=== PATIENT | male | born 1970 | race Caucasian/White ===

== ENCOUNTER → 2020-06-28 15:18 | Outpatient (BNVA) | payer MEDICAID, SELFPAY | PROVIDERS: Visit Provider Urology | DX: Z76.89 Persons encountering health services in other specified circumstances (principal) | CPT/HCPCS: 99212 ==

== ENCOUNTER → 2021-03-15 15:04 | Outpatient (BNVA) | payer MEDICAID, SELFPAY | PROVIDERS: Visit Provider Urology | DX: N30.11 Interstitial cystitis (chronic) with hematuria (principal); R31.29 Other microscopic hematuria; E29.1 Testicular hypofunction; R10.2 Pelvic and perineal pain; G89.29 Other chronic pain | CPT/HCPCS: 52000; 99212 ==

== ENCOUNTER → 2021-09-13 15:34 | Outpatient (BNVA) | payer MEDICAID, SELFPAY | PROVIDERS: PCP Family Medicine; Visit Provider Urology ==

== ENCOUNTER → 2022-09-12 14:17 | Outpatient (BNVA) | payer MEDICAID, SELFPAY | PROVIDERS: PCP Family Medicine; Visit Provider Urology | DX: N30.11 Interstitial cystitis (chronic) with hematuria (principal); E29.1 Testicular hypofunction; R31.29 Other microscopic hematuria; R10.2 Pelvic and perineal pain; G89.29 Other chronic pain | CPT/HCPCS: 99212 ==

== ENCOUNTER 2023-03-11 15:30 | Outpatient (AMB) | payer MEDICARE, MEDICAID, SELFPAY ==
--- NOTE | 2023-03-11 15:37 | A.OFFVIS_ITS ---
Intake Intake Visit Reasons: 5M CBC/PSA/Testo(set) Intake Note: Patient is present for Follow Up labs Urology Med: Antibiotic Allergy:None Blood Thinner: None Pharmacy: [facility] Allergies No Known Allergies Allergy (Verified 03/11/23 15:43) Medication List - Last Reconciled 03/11/23 by Junior Finnegan MD cimetidine 200 mg PO BID 90 days doxycycline monohydrate 50 mg PO DAILY 90 days fentanyl 50 mcg/hr 1 patch transdermal Q72H 28 days gabapentin mg PO oxycodone-acetaminophen 10-325 mg 2 tabs PO Q6H PRN 30 days tamsulosin 0.4 mg PO DAILY 90 days testosterone (AndroGel) 2 pumps topical DAILY 28 days tranexamic acid 650 mg PO BID 5 days HPI HPI Comments History of Present Illness Details Tony is a pleasant male. He is a patient of Dr. Mclaughlin. He is seen for the following urologic conditions - Interstitial cystitis - Chronic pelvic pain syndrome - Painful ejaculation - Peyronies Disease - Hypogonadism In person visit Stable with current pain protocol Does need to see pain management at [facility] to try and taper opioid use We understand this may or may not be possible Referral Brad Santiago MD Physical Medicine and Rehabilitation Pain Medicine [address] [place] [address],[id number] ? ?Fax:? Current lab work shows in range testosterone Progressive right inguinal hernia Has been assess for repair 6 month follow-up repeat labs Hypogonadism: He presents today for further evaluation and followup of his hypogonadism. The onset of symptoms has been gradual. Associate conditions include chronic pain with opioid use Yes obstructive sleep apnea No CAD No obesity No stress - financial, family, employment No heavy alcohol or illicit drug use No Laboratory results 05/14 250, 03/18 426 Current therapy includes gel/cream exogenous testosterone - apply sparingly to testicle. Prior therapy includes testosterone, topical, minimal effect. Peyronie's Disease: The patient presents for followup up evaluation for penile disorder. Primary complaint is penile curvature, to the right - associated hour glass deformity. At this time he experiences partial erections sufficient for penetrative intercourse. Prior management includes responded previously to antioxidant and Vit E therapy with vaccum. Interstitial cystitis: Prior therapy - elmiron, ranitidine, tums all with some effect. The interstitial cystitis was diagnosed longstanding since 2009. Current symptoms include pelvic pain, urinary urgency. Severity of the pain is 7 out of 10, that is moderate. Character of the pain is chronic. Prostatitis/CPPS: They present for further evaluation of, chronic pelvic pain syndrome. He is currently being treated with pain medications. Testing included 07/14 cystoscopy - open prostate and normal bladder 07/14 MRI pelvis - no enlargement of seminal vesicles - responds well to long-term fentanyl patch and oxycodone. 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 Hypogonadism male Interstitial cystitis Microscopic hematuria Microscopic hematuria Peyronie's disease UTI (urinary tract infection) Surgical History History of bladder surgery History of prostatectomy Social History Patient Tobacco Use Status: Current everyday Tobacco user Review of Systems Const Denies chills and Denies fever(s) Card Reports no additional complaints and Denies syncope Resp Denies cough GI Denies abdominal pain and Denies heartburn Reports as per HPI and Denies change in libido Neuro Denies syncope Psych Denies change in libido Endo Denies change in libido Physical Exam Const General: cooperative, healthy appearing, comfortable and no acute distress Orientation/consciousness: patient oriented x3 HEENT Face and sinus: Yes normal facial exam Mouth: moist mucous membranes Neck Neck: Yes normal visual inspection, Yes full ROM and Yes trachea midline Chest Chest palpation & inspection: normal inspection of the chest Resp Effort & Inspection: normal respiratory effort, able to speak in complete senten ac and no respiratory distress GI Inspection: Yes normal to inspection Back/Spine/Pelvis Cervical Spine: normal cervical lordosis Thoracic/Lumbar Spine: thoracic and lumbar spine normal to inspection Skin General skin exam: no rashes or lesions noted Neuro General: patient oriented x3, gait normal, tone normal and moves all extremities Extrem General: Yes normal to inspection and Yes capillary refill normal Assessment & Plan Assessment & Plan (1) Interstitial cystitis (chronic) with hematuria: Code(s): N30.11 - Interstitial cystitis (chronic) with hematuria (2) Chronic pelvic pain in male: Code(s): R10.2 - Pelvic and perineal pain; G89.29 - Other chronic pain (3) Hypogonadism in male: Code(s): E29.1 - Testicular hypofunction Plan Six month follow-up labs Pain management referral [facility] Orders: Orders Prostate Specific Antigen 6 Months E29.1 - Testicular hypofunction Testosterone, Total 6 Months E29.1 - Testicular hypofunction Complete Blood Count no Diff 6 Months E29.1 - Testicular hypofunction Referrals Pain Management Referral G89.29 - Other chronic pain, R10.2 - Pelvic and perineal pain Patient Instructions: Imaging studies, laboratory and physical exam results were discussed and reviewed in detail. No major barriers to patient understanding were identified. An opportunity to ask questions regarding the treatment plan was provided. All questions were answered. The patient expressed understanding and agreement with the above treatment plan. The patient is aware they should contact our office by phone for worsening of their current condition or the appearance of new urologic symptoms. Compliance is encouraged with any medications and followup testing that is ordered. It is a privilege to participate in the urologic care of your patient. If you have any questions or concerns regarding treatment for the above conditions, or other urologic issues, please do not hesitate to contact me. The office telephone contact is [phone]. This note is constructed using voice recognition software. While every effort has been made to ensure accuracy color checker errors may have been included. Yours sincerely, Dr Junior Finnegan MD, [facility] - Urology Providers of Expert, Compassionate Care for the Genitourinary System Coding Level of Care Code Est Pt Level 4 (08932) Diagnoses Interstitial cystitis (chronic) with hematuria N30.11 Chronic pelvic pain in male R10.2; G89.29 Hypogonadism in male E29.1
== END 2023-03-11 16:09 | disposition home or self-care (01) ==
PROVIDERS: PCP Family Medicine; Visit Provider Urology
DX: N30.11 Interstitial cystitis (chronic) with hematuria (principal); R10.2 Pelvic and perineal pain; G89.29 Other chronic pain; E29.1 Testicular hypofunction
CPT/HCPCS: 99214

== ENCOUNTER → 2023-03-11 15:30 | Outpatient (BNVA) | payer MEDICARE, MEDICAID, SELFPAY | PROVIDERS: Visit Provider Urology | DX: N30.11 Interstitial cystitis (chronic) with hematuria (principal); E29.1 Testicular hypofunction; R10.2 Pelvic and perineal pain; G89.29 Other chronic pain | CPT/HCPCS: 99212 ==

== ENCOUNTER 2023-11-06 13:34 | Outpatient (AMB) | payer MEDICARE, MEDICAID, SELFPAY ==
--- NOTE | 2023-11-06 13:40 | A.OFFVIS_ITS ---
Intake Intake Visit Reasons: PSA/Testo/CBC([facility]?)Confirmed Allergies No Known Allergies Allergy (Verified 03/11/23 15:43) HPI HPI Comments History of Present Illness Details Tony is a pleasant male. He is a patient of Dr. Mclaughlin. He is seen for the following urologic conditions - Interstitial cystitis - Chronic pelvic pain syndrome - Painful ejaculation - Peyronies Disease - Hypogonadism In person visit Current lab work shows in range testosterone Progressive right inguinal hernia Upcoming repair 6 month follow-up repeat labs Hypogonadism: He presents today for further evaluation and followup of his hypogonadism. The onset of symptoms has been gradual. Associate conditions include chronic pain with opioid use Yes obstructive sleep apnea No CAD No obesity No stress - financial, family, employment No heavy alcohol or illicit drug use No Laboratory results 05/14 250, 03/18 426, 11/17 360 Current therapy includes gel/cream exogenous testosterone - apply sparingly to testicle. Prior therapy includes testosterone, topical, minimal effect. Peyronie's Disease: The patient presents for followup up evaluation for penile disorder. Primary complaint is penile curvature, to the right - associated hour glass deformity. At this time he experiences partial erections sufficient for penetrative intercourse. Prior management includes responded previously to antioxidant and Vit E therapy with vaccum. Interstitial cystitis: Prior therapy - elmiron, ranitidine, tums all with some effect. The interstitial cystitis was diagnosed longstanding since 2009. Current symptoms include pelvic pain, urinary urgency. Severity of the pain is 7 out of 10, that is moderate. Character of the pain is chronic. Prostatitis/CPPS: They present for further evaluation of, chronic pelvic pain syndrome. He is currently being treated with pain medications. Testing included 07/14 cystoscopy - open prostate and normal bladder 07/14 MRI pelvis - no enlargement of seminal vesicles - responds well to long-term fentanyl patch and oxycodone. 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 Hypogonadism male Interstitial cystitis Microscopic hematuria Microscopic hematuria Peyronie's disease UTI (urinary tract infection) Surgical History History of bladder surgery History of prostatectomy Social History Patient Tobacco Use Status: Current everyday Tobacco user Review of Systems Const Denies chills and Denies fever(s) Card Reports no additional complaints and Denies syncope Resp Denies cough GI Denies abdominal pain and Denies heartburn Reports as per HPI and Denies change in libido Neuro Denies syncope Psych Denies change in libido Endo Denies change in libido Physical Exam Const General: cooperative, healthy appearing, comfortable and no acute distress Orientation/consciousness: patient oriented x3 HEENT Face and sinus: Yes normal facial exam Mouth: moist mucous membranes Neck Neck: Yes normal visual inspection, Yes full ROM and Yes trachea midline Chest Chest palpation & inspection: normal inspection of the chest Resp Effort & Inspection: normal respiratory effort, able to speak in complete sentences and no respiratory distress GI Inspection: Yes normal to inspection Back/Spine/Pelvis Cervical Spine: normal cervical lordosis Thoracic/Lumbar Spine: thoracic and lumbar spine normal to inspection Skin General skin exam: no rashes or lesions noted Neuro General: patient oriented x3, gait normal, tone normal and moves all extremities Extrem General: Yes normal to inspection and Yes capillary refill normal Assessment & Plan Assessment & Plan (1) Hypogonadism in male: Code(s): E29.1 - Testicular hypofunction (2) Interstitial cystitis (chronic) with hematuria: Code(s): N30.11 - Interstitial cystitis (chronic) with hematuria (3) Chronic pelvic pain in male: Code(s): R10.2 - Pelvic and perineal pain; G89.29 - Other chronic pain Plan Six-month follow-up labs Orders: Orders Testosterone, Total 6 Months E29.1 - Testicular hypofunction Complete Blood Count no Diff 6 Months E29.1 - Testicular hypofunction Prostate Specific Antigen 6 Months E29.1 - Testicular hypofunction Patient Instructions: Imaging studies, laboratory and physical exam results were discussed and reviewed in detail. No major barriers to patient understanding were identified. An opportunity to ask questions regarding the treatment plan was provided. All questions were answered. The patient expressed understanding and agreement with the above treatment plan. The patient is aware they should contact our office by phone for worsening of their current condition or the appearance of new urologic symptoms. Compliance is encouraged with any medications and followup testing that is ordered. It is a privilege to participate in the urologic care of your patient. If you have any questions or concerns regarding treatment for the above conditions, or other urologic issues, please do not hesitate to contact me. The office telep rubio contact is [phone]. This note is constructed using voice recognition software. While every effort has been made to ensure accuracy habilitation worker errors may have been included. Yours sincerely, Dr Junior Finnegan MD, [facility] - Urology Providers of Expert, Compassionate Care for the Genitourinary System Coding Level of Care Code Est Pt Level 4 (77523) Diagnoses Hypogonadism in male E29.1 Interstitial cystitis (chronic) with hematuria N30.11 Chronic pelvic pain in male R10.2; G89.29
== END 2023-11-06 14:03 | disposition home or self-care (01) ==
LOC: HO.HUSH 13:37
PROVIDERS: PCP Family Medicine; Visit Provider Urology
DX: E29.1 Testicular hypofunction (principal); N30.11 Interstitial cystitis (chronic) with hematuria; R10.2 Pelvic and perineal pain; G89.29 Other chronic pain
CPT/HCPCS: 99214

== ENCOUNTER → 2023-11-06 13:34 | Outpatient (BNVA) | payer MEDICARE, MEDICAID, SELFPAY | PROVIDERS: PCP Family Medicine; Visit Provider Urology | DX: E29.1 Testicular hypofunction (principal); N30.11 Interstitial cystitis (chronic) with hematuria; R10.2 Pelvic and perineal pain; G89.29 Other chronic pain | CPT/HCPCS: 99212 ==

== ENCOUNTER 2024-05-06 13:10 | Outpatient (AMB) | payer MEDICARE, MEDICAID, SELFPAY ==
--- NOTE | 2024-05-06 13:16 | MHC.OFFVIS ---
Intake Visit Reasons: 6M Labs([facility] lab) Intake Note: Patient is Present for Telephone Follow Up Urology Med: Tamsulosin, Testosterone. Tranexamic Acid Antibiotic Allergy:None Blood Thinner: None Prosthetic Technician Required: No Allergies No Known Allergies Allergy (Verified 05/06/24 13:17) HPI Comments Details: Tony is a pleasant male. He is a patient of Dr. Mclaughlin. He is seen for the following urologic conditions - Interstitial cystitis - Chronic pelvic pain syndrome - Painful ejaculation - Peyronies Disease - Hypogonadism Telemedicine Evaluation 15 min Consultation Bru[facility]ie Yary Video Current lab work shows in range testosterone Has flare-up of interstitial cystitis Prescription provided for tranexamic acid and cimitidine 6 month follow-up repeat labs Hypogonadism: He presents today for further evaluation and followup of his hypogonadism. The onset of symptoms has been gradual. Associate conditions include chronic pain with opioid use Yes obstructive sleep apnea No CAD No obesity No stress - financial, family, employment No heavy alcohol or illicit drug use No Laboratory results 05/14 250, 03/18 426, 11/17 360 Current therapy includes gel/cream exogenous testosterone - apply sparingly to testicle. Prior therapy includes testosterone, topical, minimal effect. Peyronie's Disease: The patient presents for followup up evaluation for penile disorder. Primary complaint is penile curvature, to the right - associated hour glass deformity. At this time he experiences partial erections sufficient for penetrative intercourse. Prior management includes responded previously to antioxidant and Vit E therapy with vaccum. Interstitial cystitis: Prior therapy - elmiron, ranitidine, tums all with some effect. The interstitial cystitis was diagnosed longstanding since 2009. Current symptoms include pelvic pain, urinary urgency. Severity of the pain is 7 out of 10, that is moderate. Character of the pain is chronic. Prostatitis/CPPS: They present for further evaluation of, chronic pelvic pain syndrome. He is currently being treated with pain medications. Testing included 07/14 cystoscopy - open prostate and normal bladder 07/14 MRI pelvis - no enlargement of seminal vesicles - responds well to long-term fentanyl patch and oxycodone. [facility] Medical History Chronic prostatitis Combined pelvic and perineal pain in male Hypogonadism male Interstitial cystitis Microscopic hematuria Microscopic hematuria Peyronie's disease UTI (urinary tract infection) Surgical History History of bladder surgery History of prostatectomy Social History Patient Tobacco Use Status: Current everyday Tobacco user Review of Systems Const All systems reviewed & are unremarkable except as noted in HPI and below Reports no additional complaints Resp Reports no additional complaints GI Reports no additional complaints Reports as per HPI Musc Reports no additional complaints Physical Exam Telemedicine evaluation Appropriate responses Regular breathing rate and rhythm HEENT Head: Yes normal to inspection Ears: hearing grossly normal bilaterally Eyes General: appearance normal, both eyes and all related structures Neck Neck: Yes normal visual inspection Chest Chest palpation & inspection: normal inspection of the chest Resp Effort & Inspection: normal respiratory effort and able to speak in complete sentences Telehealth Telehealth Telehealth Platform: [facility] Location of provider rendering services: practice address Location of patient: address on file Patient Identification confirmed using: Name, : Yes Telehealth method: video Patient verbally consented to treatment: Yes Patient verbally consented to billing insurance company: Yes Patient informed of any privacy concerns related to visit: Yes Minutes spent on Phone/Video with Pt.: 15 Assessment & Plan Assessment & Plan (1) Microscopic hematuria: Code(s): R31.29 - Other microscopic hematuria Category: Medical (2) Hypogonadism in male: Code(s): E29.1 - Testicular hypofunction Category: Medical (3) Interstitial cystitis (chronic) with hematuria: Code(s): N30.11 - Interstitial cystitis (chronic) with hematuria Category: Medical Plan Six-month follow-up labs Orders: Orders Prostate Specific Antigen 6 Months E29.1 - Testicular hypofunction Testosterone, Total 6 Months E29.1 - Testicular hypofunction Complete Blood Count no Diff 6 Months E29.1 - Testicular hypofunction Medications: New cimetidine administer with meals 200 mg PO BID 30 days 60 tabs 0RF Changed From tranexamic acid 650 mg PO BID 5 days 10 tabs 3RF R31.29 - Other microscopic hematuria To tranexamic acid 650 mg PO ONCE 30 days 30 tabs 0RF R31.29 - Other microscopic hematuria Discontinued tamsulosin Discontinued Reason: Patient Completed Course 0.4 mg PO DAILY 90 days 90 caps 1RF Patient Instructions: Imaging studies, laboratory and physical exam results were discussed and reviewed in detail. No major barriers to patient understanding were identified. An opportunity to ask questions regarding the treatment plan was provided. All questions were answered. The patient expressed understanding and agreement with the above treatment plan. The patient is aware they should contact our office by phone for worsening of their current condition or the appearance of new urologic symptoms. Compliance is encouraged with any medications and followup testing that is ordered. It is a privilege to participate in the urologic care of your patient. If you have any questions or concerns regarding treatment for the above conditions, or other urologic issues, please do not hesitate to contact me. The office telephone contact is [phone]. This note is constructed using voice recognition software. While every effort has been made to ensure accuracy home care rn errors may have been included. Yours sincerely, Dr Junior Finnegan MD, [facility] - Urology Providers of Expert, Compassionate Care for the Genitourinary System Coding Level of Care Code Tele Est Pt Level 4 (14856) Diagnoses Microscopic hematuria R31.29 Hypogonadism in male E29.1 Interstitial cystitis (chronic) with hematuria N30.11
== END 2024-05-06 14:48 | disposition home or self-care (01) ==
LOC: HO.HUSH 13:10
PROVIDERS: PCP Family Medicine; Visit Provider Urology
DX: R31.29 Other microscopic hematuria (principal); E29.1 Testicular hypofunction; N30.11 Interstitial cystitis (chronic) with hematuria
CPT/HCPCS: 99214

== ENCOUNTER → 2024-05-06 13:10 | Outpatient (BNVA) | payer MEDICARE, MEDICAID, SELFPAY | PROVIDERS: PCP Family Medicine; Visit Provider Urology ==

== ENCOUNTER 2024-11-04 13:32 | Outpatient (AMB) | payer MEDICARE, MEDICAID, SELFPAY ==
--- NOTE | 2024-11-04 13:32 | A.OFFVIS_ITS ---
Intake Visit Reasons: 6 month follow up/ PSA/ Testo Intake Note: Patient is present for 6M/PSA/TESTO Urology Medication:OXYCODINE,FENTANYL,CIMETIDINE,TRANEXAMIC,TESTOSTERONE Antibiotic Allergy:NONE Blood Thinner:NONE Qa Software Tester Required: No Allergies No Known Allergies Allergy (Verified 11/04/24 13:34) HPI Comments Details: Tony is a pleasant male. He is a patient of Dr. Mclaughlin. He is seen for the following urologic conditions - Interstitial cystitis - Chronic pelvic pain syndrome - Painful ejaculation - Peyronies Disease - Hypogonadism Telemedicine Evaluation 15 min Consultation [employer] Current lab work shows in range testosterone Has flare of interstitial cystitis Urge/Freq - nocturia x4-5 Going 10 times during the day Requires pain medication Will trial combination gabapentin, amitriptyline, naproxen to take at night Refill medications for tranexamic acid and cimetidine to use during the day Disruption is having significant impact inability to work 6 month follow-up repeat labs Hypogonadism: He presents today for further evaluation and followup of his hypogonadism . The onset of symptoms has been gradual. Associate conditions include chronic pain with opioid use Yes obstructive sleep apnea No CAD No obesity No stress - financial, family, employment No heavy alcohol or illicit drug use No Laboratory results 05/14 250, 03/18 426, 11/17 360, 11/18 T 740 P 1.0 Current therapy includes gel/cream exogenous testosterone - apply sparingly to testicle. Prior therapy includes testosterone, topical, minimal effect. Peyronie's Disease: The patient presents for followup up evaluation for penile disorder. Primary complaint is penile curvature, to the right - associated hour glass deformity. At this time he experiences partial erections sufficient for penetrative intercourse. Prior management includes responded previously to antioxidant and Vit E therapy with vaccum. Interstitial cystitis: Prior therapy - elmiron, ranitidine, tums all with some effect. The interstitial cystitis was diagnosed longstanding since 2009. Current symptoms include pelvic pain, urinary urgency. Severity of the pain is 7 out of 10, that is moderate. Character of the pain is chronic. Prostatitis/CPPS: They present for further evaluation of, chronic pelvic pain syndrome. He is currently being treated with pain medications. Testing included 07/14 cystoscopy - open prostate and normal bladder 07/14 MRI pelvis - no enlargement of seminal vesicles - responds well to long-term fentanyl patch and oxycodone. 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 Hypogonadism male Interstitial cystitis Microscopic hematuria Microscopic hematuria Peyronie's disease UTI (urinary tract infection) Surgical History History of bladder surgery History of prostatectomy Social History Patient Tobacco Use Status: Current everyday Tobacco user Review of Systems Const All systems reviewed & are unremarkable except as noted in HPI and below Reports no additional complaints Resp Reports no additional complaints GI Reports no additional complaints Reports as per HPI Musc Reports no additional complaints Physical Exam Telemedicine evaluation Appropriate responses Regular breathing rate and rhythm HEENT Head: Yes normal to inspection Ears: hearing grossly normal bilaterally Eyes General: appearance normal, both eyes and all related structures Neck Neck: Yes normal visual inspection Chest Chest palpation & inspection: normal inspection of the chest Resp Effort & Inspection: normal respiratory effort and able to speak in complete sentences Telehealth Telehealth Location of provider rendering services: practice address Location of patient: address on file Patient Identification confirmed using: Name, : Yes Telehealth method: voice only Patient verbally consented to treatment: Yes Patient verbally consented to billing insurance company: Yes Patient informed of any privacy concerns related to visit: Yes Assessment & Plan Assessment & Plan (1) Chronic pelvic pain in male: Code(s): R10.2 - Pelvic and perineal pain; G89.29 - Other chronic pain Category: Medical (2) Interstitial cystitis (chronic) with hematuria: Code(s): N30.11 - Interstitial cystitis (chronic) with hematuria Category: Medical Plan Interstitial cystitis flare Medications provided Impacting work Medications: New amitriptyline 50 mg PO BEDTIME 30 days 30 tabs 0RF G89.29 - Other chronic pain, R10.2 - Pelvic and perineal pain naproxen (Naprosyn) 500 mg PO Q12H 30 days 60 tabs 0RF pain G89.29 - Other chronic pain, R10.2 - Pelvic and perineal pain Changed From tranexamic acid Take one tablet by mouth once daily for 30 days 650 mg PO DAILY 30 days 30 tabs 0RF R31.29 - Other microscopic hematuria To tranexamic acid 650 mg PO BID 90 days 180 tabs 1RF R31.29 - Other microscopic hematuria From gabapentin PO G89.29 - Other chronic pain, R10.2 - Pelvic and perineal pain To gabapentin 600 mg PO BEDTIME 30 days 30 tabs 0RF G89.29 - Other chronic pain, R10.2 - Pelvic and perineal pain Refilled cimetidine administer with meals 200 mg PO BID 90 days 180 tabs 2RF N30.11 - I nterstitial cystitis (chronic) with hematuria Patient Instructions: This note is constructed using voice recognition software. While every effort has been made to ensure accuracy work environment safety inspector errors may have been included. Imaging studies, laboratory and physical exam results were discussed and reviewed in detail. No major barriers to patient understanding were identified. An opportunity to ask questions regarding the treatment plan was provided. All questions were answered. The patient expressed understanding and agreement with the above treatment plan. The patient is aware they should contact our office by phone for worsening of their current condition or the appearance of new urologic symptoms. Compliance is encouraged with any medications and followup testing that is ordered. It is a privilege to participate in the urologic care of your patient. If you have any questions or concerns regarding treatment for the above conditions, or other urologic issues, please do not hesitate to contact me. The office telephone contact is [phone]. Sincerely, Dr Junior Finnegan MD, [facility] - Urology Compassionate Specialist Care for the Genitourinary System Coding Level of Care Code Tele Est Pt Level 4 (77814) Complex EM visit Add On G2211 Diagnoses Chronic pelvic pain in male R10.2; G89.29 Interstitial cystitis (chronic) with hematuria N30.11
--- OUTSIDE RECORDS SUMMARY | 2024-11-04 13:53 | XMS_ITS | Encounter Summary ---
Author Organization [facility] Address [address] [place] [address] Care Team Providers Care Press Tender Star Signal Name Role Phone Shawna Garcia MD Primary Care Provider [phone] Mukul Jeong Primary Care Provider [phone] Abel Mclaughlin Primary Care Provider [phone] Encounter Details Date Type Department Care Team (Late st Contact Info) Description 12/17/2010 Orders Only [facility] Urology [address] [facility] [address] [place] [address] James Brand MD [address] [place] [address] Social History Tobacco Use Types Packs/Day Years Used Date Smoking Tobacco: Every Day Cigarettes 2 20 Smokeless Tobacco: Never Alcohol Use Standard Drinks/Week Comments Not Asked 0 (1 standard drink = 0.6 oz pur e alcohol) Sex and Gender Information Value Date Recorded Sex Assigned at Not on file Legal Sex Male 8:39 PM EDT Gender Identity Not on file Sexual Orientation Not on file documented as of this encounter Plan of Treatment Not on file documented as of this encounter Procedures * Due to [place] [employer] law, this organization might not be sharing negative HIV tests. Procedure Name Priority Date/Time Associated Diagnosis Comments CULTURE, URINE Routine 12/17/2010 URINALYSIS,C&S IF INDICATED Routine 12/17/2010 Dysuria documented in this encounter Results * Due to [place] state law, this organization might not be sharing negative HIV tests. * CULTURE, URINE (12/17/2010) URINE CULTURE CLEAN VOID SEE TEXT [facility] Comment: SOURCE: URINE NO GROWTH 12/17/2010 12/17/2010 10: 28 PM EDT James Brand MD LABORATORY Final Result Performing Organization Address [facility] Co de Phone Number [facility] [address] [place] [address] * (ABNORMAL) URINALYSIS,C&S IF INDICATED (12/17/2010) COLOR (URINE) YELLOW YELLOW [facility] APPEARANCE (URINE) CLEAR CLEAR [facility] SPECIFIC GRAVITY 1.027 1.001 - 1.035 [facility] PH (URINE) 6.0 5.0 - 8.0 [facility] PROTEIN (URINE) TRACE(A) NEG [facility] GLUCOSE (URINE) NEG NEG [facility] Ketones (Urine) NEG NEG [facility] BILIRUBIN (URINE) NEG NEG [facility] BLOOD (URINE) 3+(A) NEG [facility] WBC (URINE) TRACE(A) NEG [facility] NITRITE (URINE) NEG NEG [facility] WBC (URINE) 0-5 0-4/HPF [facility] RBC (Urine Sed) 40-60(A) 0-3/HPF [facility] EPITHELIAL CELLS.SQUAMOUS (URINE SED) 0 0-5/HPF [facility] EPITHELIAL CELLS.TRANSITI ONAL (URINE SED) 0 0-5/HPF [facility] EPITHELIAL CELLS.RENAL (URINE SED) 0 0-3/HPF [facility] BACTERIA (URINE) NONE SEEN NONE SEEN [facility] 12/17/2010 12/17/2010 10: 28 PM EDT us James Brand MD LABORATORY Final Result Performing Organization Address [facility] Co de Phone Number [facility] [address] [place] [address] documented in this encounter Visit Diagnoses Diagnosis Dysuria documented in this encounter Additional Health Concerns Infection Onset Date Last Indicated Resolved Time COVID-19 Confirmed 07/08/2023 07/08/2023 documented as of this encounter Care Teams Press Tender Star Signal Relationship Specialty Start Date End Date Shawna Garcia MD [facility] [address] [place] [phone] PCP - General 05/14/07 06/30/11 Mukul Jeong [address] [address] PCP - General Family Medicine 07/01/11 04/23/17 Abel Mclaughlin [address] [place] [phone] PCP - General Family Medicine 04/24/17 documented as of this encounter
--- OUTSIDE RECORDS SUMMARY | 2024-11-04 13:53 | XMS_ITS | Encounter Summary ---
Author Organization [facility] Address [address] [place] [address] Care Team Providers Care Computer Tech Name Role Phone Shawna Garcia MD Primary Care Provider [phone] Mukul Jeong Primary Care Provider [phone] Abel Mclaughlin Primary Care Provider [phone] Encounter Details Date Type Department Care Team (Late st Contact Info) Description 01/07/2011 Orders Only [facility] Urology [address] [facility] [address] [place] [address] James Brand MD [address] [place] [address] Social History Tobacco Use Types Packs/Day Years [...] of this encounter Procedures * Due to [place] [employer] law, this organization might not be sharing negative HIV tests. Procedure Name Priority Date/Time Associated Diagnosis Comments URINALYSIS,C&S IF INDICATED Routine 01/07/2011 Dysuria documented in this encounter Results * Due to [place] [employer] law, this organization might not be sharing negative HIV tests. * (ABNORMAL) URINALYSIS,C&S IF INDICATED (01/07/2011) COLOR (URINE) YELLOW YELLOW [facility] APPEARANCE (URINE) CLOUDY(A) CLEAR [facility] SPECIFIC GRAVITY 1.017 1.001 - 1.035 [facility] PH (URINE) 8.0 5.0 - 8.0 [facility] PROTEIN (URINE) NEG NEG [facility] GLUCOSE (URINE) NEG NEG [facility] Ketones (Urine) NEG NEG [facility] BILIRUBIN (URINE) NEG NEG [facility] BLOOD (URINE) TRACE(A) NEG [facility] WBC (URINE) NEG NEG [facility] NITRITE (URINE) NEG NEG [facility] WBC (URINE) 0 0-4/HPF [facility] RBC (Urine Sed) 4-10(A) 0-3/HPF [facility] EPITHELIAL CELLS.SQUAMOUS (URINE SED) 0 0-5/HPF [facility] EPITHELIAL CELLS.TRANSITI ONAL (URINE SED) 0 0-5/HPF [facility] EPITHELIAL CELLS.RENAL (URINE SED) 0 0-3/HPF [facility] BACTERIA (URINE) NONE SEEN NONE SEEN [facility] 01/07/2011 01/07/2011 8:4 1 PM EDT us James Brand MD LABORATORY Final Result Performing Organization Address City/State/[facility] Co de Phone Number [facility] [address] [place] [address] documented in this encounter Visit Diagnoses Diagnosis Dysuria documented in this encounter Additional Health Concerns Infection Onset Date Last Indicated Resolved Time COVID-19 Confirmed 07/08/2023 07/08/2023 documented as of this encounter Care Teams Computer Tech Relationship Specialty Start Date End Date Shawna Garcia MD [facility] [address] [place] [phone] PCP - General 05/14/07 06/30/11 Muk[address] Jeong [address] [phone] PCP - General Family Medicine 07/01/11 04/23/17 Abel Mclaughlin [address] [place] [phone] PCP - General Family Medicine 04/24/17 documented as of this encounter
--- OUTSIDE RECORDS SUMMARY | 2024-11-04 13:53 | XMS_ITS | Encounter Summary ---
Author Organization [facility] Address [address] [place] [address] Care Team Providers Care Mechanical Maintenance Instructor Name Role Phone Shawna Garcia MD Primary Care Provider [phone] Mukul Jeong Primary Care Provider [phone] Abel Mclaughlin Primary Care Provider [phone] Encounter Details Date Type Department Care Team (Late st Contact Info) Description 12/20/2009 Orders Only [facility] Urology [address] [facility] [address] [place] [address] James Brand MD [address] [place] [address] Social History Tobacco Use Types Packs/Day Years Used Date Smoking Tobacco: Never Assessed Sex and Gender Information Value Date Recorded Sex Assigned at Not on file Legal Sex Male 8:39 PM EDT Gender Identity Not on file Sexual Orientation Not on file documented as of this encounter Progress Notes * Jen Soliz - 01/08/2010 9:22 AM EDTQuick Note: . documented in this encounter Plan of Treatment Not on file documented as of this encounter Procedures * Due to [place] state law, this organization might not be sharing negative HIV tests. Procedure Name Priority Date/Time Associated Diagnosis Comments URINALYSIS,C&S IF INDICATED Routine 12/20/2009 Dysuria Pain in joint, pelvic region and thigh documented in this encounter Results * Due to [place] state law, this organization might not be sharing negative HIV tests. * (ABNORMAL) URINALYSIS,C&S IF INDICATED (12/20/2009) COLOR (URINE) YELLOW YELLOW [facility] APPEARANCE (URINE) CLEAR CLEAR [facility] SPECIFIC GRAVITY 1.022 1.001 - 1.035 [facility] PH (URINE) 6.5 5.0 - 8.0 [facility] PROTEIN (URINE) NEG NEG [facility] GLUCOSE (URINE) NEG NEG [facility] Ketones (Urine) NEG NEG [facility] BILIRUBIN (URINE) NEG NEG [facility] BLOOD (URINE) TRACE(A) NEG [facility] WBC (URINE) NEG NEG [facility] NITRITE (URINE) NEG NEG [facility] WBC (URINE) 0 0-4/HPF [facility] RBC (Urine Sed) 0-3 0-3/HPF [facility] EPITHELIAL CELLS.SQUAMOUS (URINE SED) 0 0-5/HPF [facility] EPITHELIAL CELLS.TRANSITI ONAL (URINE SED) 0 0-5/HPF [facility] EPITHELIAL CELLS.RENAL (URINE SED) 0 0-3/HPF [facility] BACTERIA (URINE) NONE SEEN NONE SEEN [facility] 12/20/2009 12/20/2009 11: 09 PM EDT us James Brand MD LABORATORY Final Result Performing Organization Address [facility]/State/[facility] Co de Phone Number [facility] [address] [place] [address] documented in this encounter Visit Diagnoses Diagnosis Dysuria Pain in joint, pelvic region and thigh documented in this encounter Additional Health Concerns Infection Onset Date Last Indicated Resolved Time COVID-19 Confirmed 07/08/2023 07/08/2023 documented as of this encounter Care Teams Mechanical Maintenance Instructor Relationship Specialty Start Date End Date Shawna Garcia MD [facility] [address] [place] [address] [address] [place] [phone] PCP - General 05/14/07 06/30/11 Mukul Jeong [address] [phone] PCP - General Family Medicine 07/01/11 04/23/17 Abel Mclaughlin [address] [place] [phone] PCP - General Family Medicine 04/24/17 documented as of this encounter
--- OUTSIDE RECORDS SUMMARY | 2024-11-04 13:53 | XMS_ITS | Encounter Summary ---
Author Organization [facility] Address [address] [place] [address] Care Team Providers Care Drug Abuse Technician Name Role Phone Shawna Garcia MD Primary Care Provider [phone] Mukul Jeong Primary Care Provider [phone] Abel Mclaughlin Primary Care Provider [phone] Encounter Details Date Type Department Care Team (Late st Contact Info) Description 10/23/2009 Orders Only [facility] Urology [address] [facility] [address] [place] [address] James Brand MD [address] [place] [address] Social History Tobacco Use Types Packs/Day Years Used Date Smoking Tobacco: Never Assessed Sex and Gender Information Value Date Recorded Sex Assigned at Not on file Legal Sex Male 8:39 PM EDT Gender Identity Not on file Sexual Orientation Not on file documented as of this encounter Plan of Treatment Not on file documented as of this encounter Procedures * Due to [place] [employer] law, this organization might not be sharing negative HIV tests. Procedure Name Priority Date/Time Associated Diagnosis Comments CULTURE, URINE Routine 10/23/2009 URINALYSIS,C&S IF INDICATED Routine 10/23/2009 Dysuria Prostatism documented in this encounter Results * Due to [place] [employer] law, this organization might not be sharing negative HIV tests. * CULTURE, URINE (10/23/2009) Pathologist [facility] URINE CULTURE CLEAN VOID SEE TEXT [facility] Comment: SOURCE: URINE NO GROWTH 10/23/2009 10/23/2009 9:4 7 PM EDT James Brand MD LABORATORY Final Result Performing Organization Address [facility]/ZIP Co de Phone Number [facility] [address] [place] [address] * (ABNORMAL) URINALYSIS,C&S IF INDICATED (10/23/2009) COLOR (URINE) YELLOW YELLOW [facility] APPEARANCE (URINE) CLEAR CLEAR [facility] SPECIFIC GRAVITY 1.029 1.001 - 1.035 [facility] PH (URINE) 6.0 5.0 - 8.0 [facility] PROTEIN (URINE) NEG NEG [facility] GLUCOSE (URINE) NEG NEG [facility] Ketones (Urine) NEG NEG [facility] BILIRUBIN (URINE) NEG NEG [facility] BLOOD (URINE) 1+(A) NEG [facility] WBC (URINE) NEG NEG [facility] NITRITE (URINE) NEG NEG [facility] WBC (URINE) 6-10(A) 0-4/HPF [facility] RBC (Urine Sed) 20-40(A) 0-3/HPF [facility] EPITHELIAL CELLS.SQUAMOUS (URINE SED) 0 0-5/HPF [facility] EPITHELIAL CELLS.TRANSITI ONAL (URINE SED) 0 0-5/HPF [facility] EPITHELIAL CELLS.RENAL (URINE SED) 0 0-3/HPF [facility] BACTERIA (URINE) NONE SEEN NONE SEEN [facility] 10/23/2009 10/23/2009 9:4 7 PM EDT James Brand MD LABORATORY Final Result Performing Organization Address City/[facility]/ZIP Co de Phone Number [facility] [address] [place] [address] documented in this encounter Visit Diagnoses Diagnosis Dysuria Prostatism Unspecified hyperplasia of prostate without urinary obstruction and other lower urinary tract symptoms (LUTS) documented in this encounter Additional Health Concerns Infection Onset Date Last Indicated Resolved Time COVID-19 Confirmed 07/08/2023 07/08/2023 documented as of this encounter Care Teams Drug Abuse Technician Relationship Specialty Start Date End Date Shawna Garcia MD [facility] [address] [place] [phone] PCP - General 05/14/07 06/30/11 Muk[address] Jeong [address] [phone] PCP - General Family Medicine 07/01/11 04/23/17 Abel Mclaughlin [address] [place] [phone] PCP - General Family Medicine 04/24/17 documented as of this encounter
--- OUTSIDE RECORDS SUMMARY | 2024-11-04 13:53 | XMS_ITS | Encounter Summary ---
Author Organization [facility] Address [address] [place] [address] Care Team Providers Care Outdoor Illuminating Engineer Name Role Phone Arnoldo GUTIERREZ MD, Abel Humphries Primary Care Prov ider Reason for Visit * Reason Onset Date Comments Pre op clearance 05/17/2021 Encounter Details Date Type Department Care Team (Late st Contact Info) Description 05/17/2021 Telephone [facility] Central Scheduling Department [address] [place] [phone] Telephone Intake, Staff Pre op clearance Social History Tobacco Use Types Packs/Day Years Used Date Smoking Tobacco: Every Day Cigarettes Smokeless Tobacco: Former Comments:: Alcohol Use Standard Drinks/Week Comments Not Currently 0 (1 standard drink = 0.6 oz pur e alcohol) Sex and Gender Information Value Date Recorded Sex Assigned at Male 09/24/2023 1:12 PM EST Legal Sex Male 9:57 AM EDT Gender Identity Not on file Sexual Orientation Not on file 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 Letter out * Telephone Encounter - Kari Tim - 06/05/2021 10:07 AM EST Pt unable to make today's appointment, he said his ride canceled. CS unable to accommodate Please contact pt * Telephone Encounter - Alis Simons - 05/17/2021 1:55 PM EDT Patient scheduled for 06/05/21 and he is aware * Telephone Encounter - Alis Simons - 05/17/2021 10:29 AM EDT Patient needs cardiac clearance, please advise * Telephone Encounter - Payton Rebolledo - 05/17/2021 10:25 AM EDT Pt of Dr. Diamond Will be having surgery with dentist soon.. Extract all his teeth. CS unable to accommodate an appt. Please call back at [phone] documented in this encounter Plan of Treatment Upcoming Encounters Date Type Department Care Team (Late st Contact Info) Description 11/08/2024 11:00 AM EDT Office Visit [address] Department [address] [place] [phone] Abel Mclaughlin III, MD [address] [place] [address] documented as of this encounter Visit Diagnoses Not on filedocumented in this encounter Care Teams Outdoor Illuminating Engineer Relationship Specialty Start Date End Date Abel Mclaughlin III, MD PCP - General 02/12/17 documented as of this encounter
--- OUTSIDE RECORDS SUMMARY | 2024-11-04 13:53 | XMS_ITS | Encounter Summary ---
Author Organization [facility] Address [address] [place] [address] Care Team Providers Care Fire Management Technician Name Role Phone Shawna Garcia MD Primary Care Provider [phone] Mukul Jeong Primary Care Provider [phone] Abel Mclaughlin Primary Care Provider [phone] Reason for Visit * Reason Onset Date Comments Refill Request 08/22/2009 Encounter Details Date Type Department Care Team (Late st Contact Info) Description 08/22/2009 Refill [facility] Urology [address] [facility] [address] [place] [address] Oma Adam MA [address] [place] [address] Refill Request Social History Tobacco Use Types Packs/Day Years Used Date Smoking Tobacco: Never Assessed Sex and Gender Information Value Date Recorded Sex Assigned at Not on file Legal Sex Male 8:39 PM EDT Gender Identity Not on file Sexual Orientation Not on file documented as of this encounter Miscellaneous Notes * Telephone Encounter - Oma Adam - 08/22/2009 9:47 AM EST Faxed medication renewal request(s) for Tony Carlton 38 y.o. male received from pharmacy. Entered this pharmacy as preferred pharmacy for patient. Next OV: No future appointments. Last OV: Pertinent lab results: Allergies: Review of patient's allergies indicates no known allergies. documented in this encounter Plan of Treatment Not on file documented as of this encounter Visit Diagnoses Diagnosis Pain in joint, pelvic region and thigh documented in this encounter Additional Health Concerns Infection Onset Date Last Indicated Resolved Time COVID-19 Confirmed 07/08/2023 07/08/2023 documented as of this encounter Care Teams Fire Management Technician Relationship Specialty Start Date End Date Shawna Garcia MD [facility] [address] [place] [phone] PCP - General 05/14/07 06/30/11 Mukul Jeong [facility]CLUD[facility] [address] [place] [address] PCP - General Family Medicine 07/01/11 04/23/17 Abel Mclaughlin [address] [place] [phone] PCP - General Family Medicine 04/24/17 documented as of this encounter
--- OUTSIDE RECORDS SUMMARY | 2024-11-04 13:53 | XMS_ITS | Encounter Summary ---
Author Organization [facility] Address [address] [place] [address] Care Team Providers Care Voltage Regulator Assembler Name Role Phone Mukul Jeong Primary Care Provider Abel Mclaughlin Primary Care Provider [phone] Encounter Details Date Type Department Care Team ([facility] st Contact Info) Description 08/11/2011 Orders Only [facility] Urology [address] [facility] [address] [place] [address] James Brand MD [address] [place] [address] Social History Tobacco Use Types Packs/Day Years [...] of this encounter Procedures * Due to [place] [employer] law, this organization might not be sharing negative HIV tests. Procedure Name Priority Date/Time Associated Diagnosis Comments CULTURE, URINE, ROUTINE Routine 08/11/2011 4:35 PM EST Hematuria URINALYSIS, COMPLETE INCLUDES DIPSTICK AND MICROSCOPIC Routine 08/11/2011 4:35 PM EST Hematuria documented in this encounter Results * Due to [place] law, this organization might not be sharing negative HIV tests. * (ABNORMAL) URINALYSIS, COMPLETE INCLUDES DIPSTICK AND MICROSCOPIC (08/11/2011 4:35 PM EST) Color (Urine) YELLOW YELLOW [facility] Comment:{COLOR {[id number]) Appearance (Urine) CLEAR CLEAR [facility] Comment:{APPEARANCE {[id number]) Specific gravity (Urine) 1.023 1.001 - 1.035 [facility] Comment:{SPECIFIC GRAVITY {[id number]) pH (Urine) 6.0 5.0 - 8.0 [facility] Comment:{PH {[id number]) Glucose (Urine) NEGATIVE NEGATIVE [facility] Comment:{GLUCOSE {[id number]) Bilirubin (Urine) NEGATIVE NEGATIVE [facility] Comment:{BILIRUBIN {[id number]) Ketones (Urine) NEGATIVE NEGATIVE [facility] Comment:{KETONES {[id number]) Hemoglobin (Urine) 2+(A) NEGATIVE [facility] Comment:{OCCULT BLOOD {[id number]) Protein (Urine) NEGATIVE NEGATIVE [facility] Comment:{PROTEIN {[id number]) Nitrite (Urine) NEGATIVE NEGATIVE [facility] Comment:{NITRITE {[id number]) Leukocyte esterase (Urine) NEGATIVE NEGATIVE [facility] Comment:{LEUKOCYTE ESTERASE {[id number]) WBC (Urine) 0-5 < OR = 5 /HPF [facility] Comment:{WBC {[id number]) RBC (Urine Sed) 20-40(A) < OR = 3 /HPF [facility] Comment:{RBC {[id number]) Epithelial cells.squamous (Urine sed) NONE SEEN < OR = 5 /HPF [facility] Comment:{SQUAMOUS EPITHELIAL CELLS {[id number]) Bacteria (Urine) NONE SEEN NONE SEEN /HPF [facility] Comment:{BACTERIA {[id number]) Hyaline casts (Urine sed) NONE SEEN NONE SEEN /LPF [facility] Comment:{HYALINE CAST {[id number]) Service comment 01 SEE NOTE [facility] Comment: {NOTE {[id number]) This urine was analyzed for the presence of WBC, RBC, bacteria, casts, and other formed elements. Only those elements seen were reported. 08/11/2011 4:35 PM EST 08/11/2011 9:39 PM EST Narrative Resulting Agency Comment [id number] James Brand MD LAB SAME DAY RESULT Final Resul t Performing Organization Address [facility] de Phone Number [facility] [address] [place] [address] * CULTURE, URINE, ROUTINE (08/11/2011 4:35 PM EST) Bacteria culture (Urine) SEE NOTE [facility] Comment: {CULTURE, URINE, ROUTINE {[id number]) ??CULTURE, URINE, ROUTINE ??MICRO NUMBER: ?[id number] ??TEST STATUS: ? FINAL ??SPECIMEN SOURCE: ?? URINE ??SPECIMEN QUALITY: ??ADEQUATE ??RESULT: ?No Growth 08/11/2011 4:35 PM EST 08/11/2011 9:39 PM EST Narrative Resulting Agency Comment [id number] James Brand MD LABORATORY Final Result Performing Organization Address [facility] de Phone Number [facility] [address] [place] [address] documented in this encounter Visit Diagnoses Diagnosis Hematuria Hematuria, unspecified documented in this encounter Additional Health Concerns Infection Onset Date Last Indicated Resolved Time COVID-19 Confirmed 07/08/2023 07/08/2023 documented as of this encounter Care Teams Voltage Regulator Assembler Relationship Specialty Start Date End Date Mukul Jeong [facility] [address] [place] [address] PCP - General Family Medicine 07/01/11 04/23/17 Abel Mclaughlin [address] [place] [address] PCP - General Family Medicine 04/24/17 documented as of this encounter
--- OUTSIDE RECORDS SUMMARY | 2024-11-04 13:53 | XMS_ITS | Encounter Summary ---
Author Organization [facility] Address [address] [place] [address] Care Team Providers Care Recruiting Administrator Name Role Phone Shawna Garcia MD Primary Care Provider [phone] Mukul Jeong Primary Care Provider [phone] Abel Mclaughlin Primary Care Provider [phone] Encounter Details Date Type Department Care Team (Late st Contact Info) Description 12/29/2008 Orders Only [facility] Urology [address] [facility] [address] [place] [address] Juana Johnson NP Social History Tobacco Use Types Packs/Day Years Used Date Smoking Tobacco: Never Assessed Sex and Gender Information Value Date Recorded Sex Assigned at Not on file Legal Sex Male 8:39 PM EDT Gender Identity Not on file Sexual Orientation Not on file documented as of this encounter Plan of Treatment Not on file documented as of this encounter Procedures * Due to [place] state law, this organization might not be sharing negative HIV tests. Procedure Name Priority Date/Time Associated Diagnosis Comments LDH Routine 12/29/2008 Pain in Joint, Pelvic Region and Thigh ALPHA FETOPROTEIN (AFP) TUMOR MARKER Routine 12/29/2008 Pain in Joint, Pelvic Region and Thigh HCG (QUANTITATIVE) (CAN BE USED FOR TUMOR MARKER) Routine 12/29/2008 Pain in Joint, Pelvic Region and Thigh URINALYSIS,C&S IF INDICATED Routine 12/29/2008 UTI (Urinary Tract Infection) documented in this encounter Results * Due to [place] state law, this organization might not be sharing negative HIV tests. * (ABNORMAL) URINALYSIS,C&S IF INDICATED (12/29/2008) Pathologist [facility] COLOR (URINE) YELLOW YELLOW APPEARANCE (URINE) CLEAR CLEAR SPECIFIC GRAVITY 1.022 1.001 - 1.035 PH (URINE) 7.0 5.0 - 8.0 PROTEIN (URINE) NEG NEG GLUCOSE (URINE) NEG NEG Ketones (Urine) NEG NEG BILIRUBIN (URINE) NEG NEG BLOOD (URINE) 1+(A) NEG WBC (URINE) NEG NEG NITRITE (URINE) NEG NEG WBC (URINE) 0 0-4/HPF RBC (Urine Sed) 4-10(A) 0-3/HPF EPITHELIAL CELLS.SQUAMOUS (URINE SED) 0 0-5/HPF EPITHELIAL CELLS.TRANSITIO NAL (URINE SED) 0 0-5/HPF EPITHELIAL CELLS.RENAL (URINE SED) 0 0-3/HPF BACTERIA (URINE) NONE SEEN NONE SEEN 12/29/2008 12/29/2008 9:1 6 PM EDT us Juana Johnson NP LABORATORY Final Result * HCG (QUANTITATIVE) (CAN BE USED FOR TUMOR MARKER) (12/29/2008) [facility] HCG, Total, Quantitative < 5 5 MIU/ML Comment: MALE REFERENCE RANGE: < 5 MIU/ML VALUES FROM DIFFERENT ASSAY METHODS MAY VARY. THE USE OF THIS ASSAY TO MONITOR OR TO DIAGNOSE PATIENTS WITH CANCER OR ANY CONDITION UNRELATED TO HAS NOT BEEN CLEARED OR APPROVED BY THE FDA OR THE DIE POLISHER OF THIS ASSAY. 12/29/2008 12/29/2008 9:1 3 PM EDT Narrative 12/30/2008 5:08 AM EDT Report Comments: TUMOR MARKER FOR CA TUMOR MARKER FOR CA Juana Johnson NP LAB SAME DAY RESULT Final Result * LDH (12/29/2008) [facility] LDH 137 100 - 220 U/L 12/29/2008 12/29/2008 9:1 3 PM EDT Narrative 12/30/2008 4:12 AM EDT Report Comments: TUMOR MARKER FOR CA TUMOR MARKER FOR CA Juana Johnson NP LABORATORY Final Result * ALPHA FETOPROTEIN (AFP) TUMOR MARKER (12/29/2008) Pathologist [facility] AFP (TUMOR MARKER) 1.6 0 - 6.0 NG/ML Comment: THIS TEST WAS PERFORMED USING THE SIEMENS (uTrack TV) CHEMILUMINESCENT METHOD. VALUES OBTAINED FROM DIFFERENT ASSAY METHODS CANNOT BE USED INTERCHANGEABLY. AFP LEVELS, REGARDLESS OF VALUE, SHOULD NOT BE INTERPRETED ABSOLUTE EVIDENCE OF THE PRESENCE OR ABSENCE OF DISEASE. 12/29/2008 12/29/2008 9:1 3 PM EDT Narrative 01/02/2009 1:57 PM EDT Report Comments: TUMOR MARKER FOR CA TUMOR MARKER FOR CA Juana Johnson NP LABORATORY Final Result documented in this encounter Visit Diagnoses Diagnosis Pain in joint, pelvic region and thigh UTI (urinary tract infection) Urinary tract infection, site not specified documented in this encounter Additional Health Concerns Infection Onset Date Last Indicated Resolved Time COVID-19 Confirmed 07/08/2023 07/08/2023 documented as of this encounter Care Teams Recruiting Administrator Relationship Specialty Start Date End Date Shawna Garcia MD [facility] [address] [place] [phone] PCP - General 05/14/07 06/30/11 Mukul Jeong [facility] [address] [place] [address] PCP - General Family Medicine 07/01/11 04/23/17 Abel Mclaughlin [address] [place] [phone] PCP - General Family Medicine 04/24/17 documented as of this encounter
--- OUTSIDE RECORDS SUMMARY | 2024-11-04 13:53 | XMS_ITS | Encounter Summary ---
Author Organization [facility] Address [address] [place] [address] Care Team Providers Care Counselor Manager Name Role Phone Shawna Garcia MD Primary Care Provider [phone] Mukul Jeong Primary Care Provider [phone] Abel Mclaughlin Primary Care Provider [phone] Encounter Details Date Type Department Care Team (Late st Contact Info) Description 02/25/2009 Orders Only [facility] Urology [address] [facility] [address] [place] [address] Bhaskar Lee MD Medications Social History Tobacco Use Types Packs/Day Years Used Date Smoking Tobacco: Never Assessed Sex and Gender Information Value Date Recorded Sex Assigned at Not on file Legal Sex Male 8:39 PM EDT Gender Identity Not on file Sexual Orientation Not on file documented as of this encounter Plan of Treatment Not on file documented as of this encounter Visit Diagnoses Diagnosis BPH (benign prostatic hypertrophy)- Primary Hypertrophy of prostate without urinary obstruction and other lower urinary tract symptoms (LUTS) documented in this encounter Additional Health Concerns Infection Onset Date Last Indicated Resolved Time COVID-19 Confirmed 07/08/2023 07/08/2023 documented as of this encounter Care Teams Counselor Manager Relationship Specialty Start Date End Date Shawna Garica MD [facility] [address] [place] [address] [address] [place] [address] PCP - General 05/14/07 06/30/11 Mukul Jeong [facility] [address] [place] [address] PCP - General Family Medicine 07/01/11 04/23/17 Abel Mclaughlin [address] [place] [phone] PCP - General Family Medicine 04/24/17 documented as of this encounter
--- OUTSIDE RECORDS SUMMARY | 2024-11-04 13:53 | XMS_ITS | Encounter Summary ---
Author Organization [facility] Address [address] [place] [address] Care Team Providers Care Pin Pusher Name Role Phone Shawna Garcia MD Primary Care Provider [phone] Mukul Jeong Primary Care Provider [phone] Abel Mclaughlin Primary Care Provider [phone] Reason for Visit * Reason Onset Date Comments Refill Request 05/09/2009 Encounter Details Date Type Department Care Team (Late st Contact Info) Description 05/09/2009 Refill [facility] Urology [address] [facility] [address] [place] [address] Oma Adam MA [address] [place] [address] Refill Request Social History Tobacco Use Types Packs/Day Years Used Date Smoking Tobacco: Never Assessed Sex and Gender Information Value Date Recorded Sex Assigned at Not on file Legal Sex Male 8:39 PM EDT Gender Identity Not on file Sexual Orientation Not on file documented as of this encounter Miscellaneous Notes * Telephone Encounter - Oma Adam - 05/09/2009 3:49 PM EDT Faxed medication renewal request(s) for Tony Carlton JrDeanna 38 y.o. male received from pharmacy. Entered [...] documented as of this encounter Care Teams Pin Pusher Relationship Specialty Start Date End Date Shawna Garcia MD [facility] [address] [place] [phone] PCP - General 05/14/07 06/30/11 Mukul Jeong [facility] [address] [place] [address] PCP - General Family Medicine 07/01/11 04/23/17 Abel Mclaughlin [address] [place] [phone] PCP - General Family Medicine 04/24/17 documented as of this encounter
--- OUTSIDE RECORDS SUMMARY | 2024-11-04 13:53 | XMS_ITS | Encounter Summary ---
Author Organization [facility] Address [address] [place] [address] Care Team Providers Care Airplane Captain Name Role Phone Shawna Garcia MD Primary Care Provider [phone] Mukul Jeong Primary Care Provider [phone] Abel Mclaughlin Primary Care Provider [phone] Encounter Details Date Type Department Care Team (Late st Contact Info) Description 07/17/2009 Orders Only [facility] V[facility] Surgery [address] [facility] [address] [place] [address] Mima Banda LVN LPN Social History Tobacco Use Types Packs/Day Years Used Date Smoking Tobacco: Never Assessed Sex and Gender Information Value Date Recorded Sex Assigned at Not on file Legal Sex Male 8:39 PM EDT Gender Identity Not on file Sexual Orientation Not on file documented as of this encounter Plan of Treatment Not on file documented as of this encounter Visit Diagnoses Diagnosis UTI (urinary tract infection)- Primary Urinary tract infection, site not specified documented in this encounter Additional Health Concerns Infection Onset Date Last Indicated Resolved Time COVID-19 Confirmed 07/08/2023 07/08/2023 documented as of this encounter Care Teams Airplane Captain Relationship Specialty Start Date End Date Shawna Garcia MD [facility] [address] [place] [address] [address] [place] [address] PCP - General 05/14/07 06/30/11 Mukul Jeong [facility] [address] [place] [address] PCP - General Family Medicine 07/01/11 04/23/17 Abel Mclaughlin [address] [place] [address] PCP - General Family Medicine 04/24/17 documented as of this encounter
--- OUTSIDE RECORDS SUMMARY | 2024-11-04 13:53 | XMS_ITS | Encounter Summary ---
Author Organization [facility] Address [address] [place] [address] Care Team Providers Care Car Installations Supervisor Name Role Phone Mukul Jeong Primary Care Provider [phone] Abel Mclaughlin Primary Care Provider [phone] Encounter Details Date Type Department Care Team ([facility] st Contact Info) Description 07/09/2011 Orders Only [facility] [address] [place] [address] James Brand MD [address] [place] [address] Social History Tobacco Use Types Packs/Day Years [...] encounter Procedures * Due to [place] [employer] law, this organization might not be sharing negative HIV tests. Procedure Name Priority Date/Time Associated Diagnosis Comments URINALYSIS DIP W/ REFLEX TO MICROSCOPIC+CULTURE Routine 07/09/2011 4:33 PM EST Prostatitis CULTURE, URINE, ROUTINE Routine 07/09/2011 4:33 PM EST documented in this encounter Results * Due to [place] [employer] law, this organization might not be sharing negative HIV tests. * CULTURE, URINE, ROUTINE (07/09/2011 4:33 PM EST) Bacteria culture (Urine) SEE NOTE [facility] Comment: {CULTURE, URINE, ROUTINE {[id number]) ??CULTURE, URINE, ROUTINE ??MICRO NUMBER: ?[id number] ??TEST STATUS: ? FINAL ??SPECIMEN SOURCE: ?? URINE ??SPECIMEN QUALITY: ??ADEQUATE ??RESULT: ?No Growth ? We received a preserved urine culture transport ? tube and performed a urine culture. If this is ? not what you intended to order, please contact ? your local client services representative ? immediately so that we can adjust our billing ? appropriately. You may also inquire about ? alternative or additional testing. 07/09/2011 4:33 PM EST 07/10/2011 1:17 AM EST us James Brand MD LABORATORY Final Result [facility] [address] [place] [address] * (ABNORMAL) URINALYSIS DIP W/ REFLEX TO MICROSCOPIC+CULTURE (07/09/2011 4:33 PM EST) Color (Urine) YELLOW YELLOW [facility] Comment:{COLOR {[id number]) Appearance (Urine) CLEAR CLEAR [facility] Comment:{APPEARANCE {[id number]) Specific gravity (Urine) 1.022 1.001 - 1.035 [facility] Comment:{SPECIFIC GRAVITY {[id number]) pH (Urine) 7.5 5.0 - 8.0 [facility] Comment:{PH {[id number]) Glucose (Urine) NEGATIVE NEGATIVE [facility] Comment:{GLUCOSE {[id number]) Bilirubin (Urine) NEGATIVE NEGATIVE [facility] Comment:{BILIRUBIN {[id number]) Ketones (Urine) NEGATIVE NEGATIVE [facility] Comment:{KETONES {[id number]) Hemoglobin (Urine) 2+(A) NEGATIVE [facility] Comment:{OCCULT BLOOD {[id number]) Protein (Urine) NEGATIVE NEGATIVE [facility] Comment:{PROTEIN {[id number]) Nitrite (Urine) NEGATIVE NEGATIVE [facility] Comment:{NITRITE {[id number]) Leukocyte esterase (Urine) NEGATIVE NEGATIVE [facility] Comment:{LEUKOCYTE ESTERASE {[id number]) 07/09/2011 4:33 PM EST 07/10/2011 1:17 AM EST Narrative Resulting Agency Comment [id number] us James Brand MD LABORATORY Final Result Performing Organization Address City/State/[facility] Co de Phone Number [facility] [address] [place] [address] documented in this encounter Visit Diagnoses Diagnosis Prostatitis Prostatitis, unspecified documented in this encounter Additional Health Concerns Infection Onset Date Last Indicated Resolved Time COVID-19 Confirmed 07/08/2023 07/08/2023 documented as of this encounter Care Teams Car Installations Supervisor Relationship Specialty Start Date End Date Mukul Jeong [facility] [address] [place] [address] PCP - General Family Medicine 07/01/11 04/23/17 Abel Mclaughlin [address] [place] [phone] PCP - General Family Medicine 04/24/17 documented as of this encounter
--- OUTSIDE RECORDS SUMMARY | 2024-11-04 13:53 | XMS_ITS | Encounter Summary ---
Author Organization [facility] Address [address] [place] [address] Care Team Providers Care Cosmetologist Apprentice Name Role Phone Shawna Garcia MD Primary Care Provider [phone] Mukul Jeong Primary Care Provider [phone] Abel Mclaughlin Primary Care Provider [phone] Encounter Details Date Type Department Care Team (Late st Contact Info) Description 04/20/2009 Orders Only [facility] Urology [address] [facility] [address] [place] [address] Viet Sutherland MD [facility] [address] [facility] [address] [place] [address] Social History Tobacco Use Types Packs/Day Years Used Date Smoking Tobacco: Never Assessed Sex and Gender Information Value Date Recorded Sex Assigned at Not on file Legal Sex Male 8:39 PM EDT Gender Identity Not on file Sexual Orientation Not on file documented as of this encounter Progress Notes * Viet Sutherland MD - 04/24/2009 7:43 AM EDTQuick Note: Patient has transferred care to KASIE Perez scheduled. May need cystoscopy for hematuria if decides not to have KASIE/formal cystoscopy. documented in this encounter Plan of Treatment Not on file documented as of this encounter Procedures * Due to [place] state law, this organization might not be sharing negative HIV tests. Procedure Name Priority Date/Time Associated Diagnosis Comments CULTURE, URINE Routine 04/20/2009 Urinary Frequency URINALYSIS, COMPLETE (DIP & MICRO) Routine 04/20/2009 Urinary Frequency documented in this encounter Results * Due to [place] state law, this organization might not be sharing negative HIV tests. * CULTURE, URINE (04/20/2009) URINE CULTURE CLEAN VOID SEE TEXT [facility] Comment: SOURCE: URINE NO GROWTH 04/20/2009 04/20/2009 10: 33 PM EDT Viet Sutherland MD LABORATORY Final Result Performing Organization Address [facility] de Phone Number [facility] [address] [place] [address] * (ABNORMAL) URINALYSIS, COMPLETE (DIP & MICRO) (04/20/2009) COLOR (URINE) YELLOW YELLOW [facility] APPEARANCE (URINE) TURBID(A) CLEAR [facility] SPECIFIC GRAVITY 1.028 1.001 - 1.035 [facility] PH (URINE) 6.0 5.0 - 8.0 [facility] PROTEIN (URINE) NEG NEG [facility] GLUCOSE (URINE) NEG NEG [facility] Ketones (Urine) NEG NEG [facility] BILIRUBIN (URINE) NEG NEG [facility] BLOOD (URINE) 2+(A) NEG [facility] WBC (URINE) NEG NEG [facility] NITRITE (URINE) NEG NEG [facility] WBC (URINE) 0 0-4/HPF [facility] RBC (Urine Sed) 20-40(A) 0-3/HPF [facility] EPITHELIAL CELLS.SQUAMOUS (URINE SED) 0 0-5/HPF [facility] EPITHELIAL CELLS.TRANSITI ONAL (URINE SED) 0 0-5/HPF [facility] EPITHELIAL CELLS.RENAL (URINE SED) 0 0-3/HPF [facility] BACTERIA (URINE) NONE SEEN NONE SEEN [facility] 04/20/2009 04/20/2009 10: 33 PM EDT us Viet Sutherland MD LAB SAME DAY RESULT Final Resu lt Performing Organization Address City/[facility] Co de Phone Number [facility] [address] [place] [address] documented in this encounter Visit Diagnoses Diagnosis Urinary frequency documented in this encounter Additional Health Concerns Infection Onset Date Last Indicated Resolved Time COVID-19 Confirmed 07/08/2023 07/08/2023 documented as of this encounter Care Teams Cosmetologist Apprentice Relationship Specialty Start Date End Date Shawna Garcia MD [facility] [address] [place] [phone] PCP - General 05/14/07 06/30/11 Mukul Jeong [facility] [address] [place] [phone] PCP - General Family Medicine 07/01/11 04/23/17 Abel Mclaughlin [address] [place] [phone] PCP - General Family Medicine 04/24/17 documented as of this encounter
--- OUTSIDE RECORDS SUMMARY | 2024-11-04 13:53 | XMS_ITS | Encounter Summary ---
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
--- OUTSIDE RECORDS SUMMARY | 2024-11-04 13:53 | XMS_ITS | Encounter Summary ---
Author Organization [facility] Address [address] [place] [address] Care Team Providers Care Interdisciplinary Professor Name Role Phone Mukul Jeong Primary Care Provider [phone] Abel Mclaughlin Primary Care Provider [phone] Encounter Details Date Type Department Care Team ([facility] st Contact Info) Description 02/03/[address] [facility] Urology [address] [facility] [address] [place] [address] James Brand MD [address] [place] [address] Social History Tobacco Use Types Packs/Day Years [...] of this encounter Procedures * Due to [place] [employer] law, this organization might not be sharing negative HIV tests. Procedure Name Priority Date/Time Associated Diagnosis Comments URINALYSIS, MICROSCOPIC WITH REFLEX CULTURE Routine 02/03/2012 9:52 AM EDT Urinary frequency documented in this encounter Results * Due to [place] [employer] law, this organization might not be sharing negative HIV tests. * URINALYSIS, MICROSCOPIC WITH REFLEX CULTURE (02/03/2012 9:52 AM EDT) WBC (Urine) NONE SEEN < OR = 5 /HPF [facility] Comment:{WBC {[id number]) RBC (Urine Sed) 0-3 < OR = 3 /HPF [facility] Comment:{RBC {[id number]) Epithelial cells.squamous (Urine sed) NONE SEEN < OR = 5 /HPF [facility] Comment:{SQUAMOUS EPITHELIAL CELLS {[id number]) Bacteria (Urine) NONE SEEN NONE SEEN /HPF [facility] Comment:{BACTERIA {[id number]) Hyaline casts (Urine sed) NONE SEEN NONE SEEN /LPF [facility] Comment:{HYALINE CAST {[id number]) 02/03/2012 9:52 AM EDT 02/03/2012 2:48 PM EDT Narrative Resulting Agency Comment [id number] James Brand MD LABORATORY Final Result Performing Organization Address City/State/[facility] Co de Phone Number [facility] [address] [place] [address] documented in this encounter Visit Diagnoses Diagnosis Urinary frequency documented in this encounter Additional Health Concerns Infection Onset Date Last Indicated Resolved Time COVID-19 Confirmed 07/08/2023 07/08/2023 documented as of this encounter Care Teams Interdisciplinary Professor Relationship Specialty Start Date End Date Mukul Jeong [facility] [address] [place] [address] PCP - General Family Medicine 07/01/11 04/23/17 Abel Mclaughlin [address] [place] [phone] PCP - General Family Medicine 04/24/17 documented as of this encounter
--- OUTSIDE RECORDS SUMMARY | 2024-11-04 13:53 | XMS_ITS | Encounter Summary ---
Author Organization [facility] Address [address] [place] [address] Care Team Providers Care Veterinarian Laboratory Animal Care Name Role Phone Shawna Garcia MD Primary Care Provider [phone] Mukul Jeong Primary Care Provider Abel Mclaughlin Primary Care Provider [phone] Encounter Details Date Type Department Care Team (Late st Contact Info) Description 08/30/2010 Orders Only [facility] Pre-Admission Testing [address] [facility] [address] [place] [address] Ritika Plaza MD [address] [place] [address] Social History Tobacco Use Types Packs/Day Years Used Date Smoking Tobacco: Never Assessed Sex and Gender Information Value Date Recorded Sex Assigned at Not on file Legal Sex Male 8:39 PM EDT Gender Identity Not on file Sexual Orientation Not on file documented as of this encounter Plan of Treatment Not on file documented as of this encounter Procedures * Due to [place] [employer] law, this organization might not be sharing negative HIV tests. Procedure Name Priority Date/Time Associated Diagnosis Comments CXR 2 VIEW AP/PA AND LAT Routine 08/30/2010 4:16 PM EST documented in this encounter Results * Due to [place] [employer] law, this organization might not be sharing negative HIV tests. * CXR 2 VIEW AP/PA AND LAT (08/30/2010 4:16 PM EST) RADIOLOGY REPORT Chest, two views: There are no comparison studies. The lungs are clear. ??The heart is normal in size. ??Mediastinum and hilar structures are unremarkable. Impression: Normal study. [facility] RAD Anatomical Region Laterality Modality Other 08/30/2010 4:16 PM EST Narrative 08/30/2010 4:20 PM EST Reason for Study/History: There are no comparison studies. 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 documented in this encounter Additional Health Concerns Infection Onset Date Last Indicated Resolved Time COVID-19 Confirmed 07/08/2023 07/08/2023 documented as of this encounter Care Teams Veterinarian Laboratory Animal Care Relationship Specialty Start Date End Date Shawna Garcia MD [facility] [address] [place] [address] [address] [place] [address] PCP - General 05/14/07 06/30/11 Mukul Jeong [facility] [address] [place] [address] PCP - General Family Medicine 07/01/11 04/23/17 Abel Mclaughlin [address] [place] [phone] PCP - General Family Medicine 04/24/17 documented as of this encounter
--- OUTSIDE RECORDS SUMMARY | 2024-11-04 13:53 | XMS_ITS | Encounter Summary ---
Author Organization [facility] Address [address] [place] [address] Care Team Providers Care Housekeeping And Laundry Team Leader Name Role Phone Shawna Garcia MD Primary Care Provider [phone] Mukul Jeong Primary Care Provider [phone] Abel Mclaughlin Primary Care Provider Encounter Details Date Type Department Care Team (Late st Contact Info) Description 11/14/2009 Orders Only [facility] Urology [address] [facility] [address] [place] [address] James Brand MD [address] [place] [address] Social History Tobacco Use Types Packs/Day Years Used Date Smoking Tobacco: Never Assessed Sex and Gender Information Value Date Recorded Sex Assigned at Not on file Legal Sex Male 8:39 PM EDT Gender Identity Not on file Sexual Orientation Not on file documented as of this encounter Progress Notes * James Brand MD - 11/15/2009 7:28 AM EDTQuick Note: On Cipro documented in this encounter Plan of Treatment Not on file documented as of this encounter Procedures * Due to [place] state law, this organization might not be sharing negative HIV tests. Procedure Name Priority Date/Time Associated Diagnosis Comments CULTURE, URINE Routine 11/14/2009 URINALYSIS,C&S IF INDICATED Routine 11/14/2009 Urinary frequency Prostatitis documented in this encounter Results * Due to [place] state law, this organization might not be sharing negative HIV tests. * CULTURE, URINE (11/14/2009) URINE CULTURE CLEAN VOID SEE TEXT [facility] Comment: SOURCE: URINE NO GROWTH 11/14/2009 11/14/2009 11: 00 PM EDT James Brand MD LABORATORY Final Result Performing Organization Address [facility] de Phone Number [facility] [address] [place] [phone] * (ABNORMAL) URINALYSIS,C&S IF INDICATED (11/14/2009) COLOR (URINE) YELLOW YELLOW [facility] APPEARANCE (URINE) CLEAR CLEAR [facility] SPECIFIC GRAVITY 1.024 1.001 - 1.035 [facility] PH (URINE) 6.5 5.0 - 8.0 [facility] PROTEIN (URINE) NEG NEG [facility] GLUCOSE (URINE) NEG NEG [facility] Ketones (Urine) NEG NEG [facility] BILIRUBIN (URINE) NEG NEG [facility] BLOOD (URINE) 2+(A) NEG [facility] WBC (URINE) 1+(A) NEG [facility] NITRITE (URINE) NEG NEG [facility] WBC (URINE) 0-5 0-4/HPF [facility] RBC (Urine Sed) 4-5(A) 0-3/HPF [facility] EPITHELIAL CELLS.SQUAMOUS (URINE SED) 0 0-5/HPF [facility] EPITHELIAL CELLS.TRANSITI ONAL (URINE SED) 0 0-5/HPF [facility] EPITHELIAL CELLS.RENAL (URINE SED) 0 0-3/HPF [facility] BACTERIA (URINE) NONE SEEN NONE SEEN [facility] 11/14/2009 11/14/2009 11: 00 PM EDT James Brand MD LABORATORY Final Result Performing Organization Address [facility] Co de Phone Number [facility] [address] [place] [address] documented in this encounter Visit Diagnoses Diagnosis Urinary frequency Prostatitis Prostatitis, unspecified documented in this encounter Additional Health Concerns Infection Onset Date Last Indicated Resolved Time COVID-19 Confirmed 07/08/2023 07/08/2023 documented as of this encounter Care Teams Housekeeping And Laundry Team Leader Relationship Specialty Start Date End Date Shawna Garcia MD [facility] [address] [place] [phone] PCP - General 05/14/07 06/30/11 Mukul Jeong [address] [phone] PCP - General Family Medicine 07/01/11 04/23/17 Abel Mclaughlin [address] [place] [phone] PCP - General Family Medicine 04/24/17 documented as of this encounter
--- OUTSIDE RECORDS SUMMARY | 2024-11-04 13:53 | XMS_ITS | Encounter Summary ---
Author Organization [facility] Address [address] [place] [address] Care Team Providers Care Door Paneler Name Role Phone Shawna Garcia MD Primary Care Provider [phone] Mukul Jeong Primary Care Provider [phone] Abel Mclaughlin Primary Care Provider [phone] Encounter Details Date Type Department Care Team (Late st Contact Info) Description 07/18/2009 Orders Only [facility] General Vascular Surgery [address] [facility] [address] [place] [address] Viet Sutherland MD [facility] [address] [facility] [address] [place] [address] Social History Tobacco Use Types Packs/Day Years Used Date Smoking Tobacco: Never Assessed Sex and Gender Information Value Date Recorded Sex Assigned at Not on file Legal Sex Male 8:39 PM EDT Gender Identity Not on file Sexual Orientation Not on file documented as of this encounter Progress Notes * Juana Johnson NP - 07/19/2009 10:15 AM ESTQuick Note: . * Mima Banda - 07/19/2009 10:12 AM ESTQuick Note: . documented in this encounter Plan of Treatment Not on file documented as of this encounter Procedures * Due to [place] state law, this organization might not be sharing negative HIV tests. Procedure Name Priority Date/Time Associated Diagnosis Comments URINALYSIS,C&S IF INDICATED Routine 07/18/2009 UTI (urinary tract infection) documented in this encounter Results * Due to [place] [employer] law, this organization might not be sharing negative HIV tests. * (ABNORMAL) URINALYSIS,C&S IF INDICATED (07/18/2009) COLOR (URINE) YELLOW YELLOW [facility] APPEARANCE (URINE) CLEAR CLEAR [facility] SPECIFIC GRAVITY 1.029 1.001 - 1.035 [facility] PH (URINE) 7.0 5.0 - 8.0 [facility] PROTEIN (URINE) [...] (URINE) NONE SEEN NONE SEEN [facility] 07/18/2009 07/18/2009 7:4 0 PM EST Viet Sutherland MD LABORATORY Final Result Performing Organization Address City/State/[facility] Co de Phone Number [facility] [address] [place] [address] documented in this encounter Visit Diagnoses Diagnosis UTI (urinary tract infection) Urinary tract infection, site not specified documented in this encounter Additional Health Concerns Infection Onset Date Last Indicated Resolved Time COVID-19 Confirmed 07/08/2023 07/08/2023 documented as of this encounter Care Teams Door Paneler Relationship Specialty Start Date End Date Shawna Garcia MD [facility] [address] [place] [phone] PCP - General 05/14/07 06/30/11 Mukul Jeong [address] [phone] PCP - General Family Medicine 07/01/11 04/23/17 Abel Mclaughlin [address] [place] [phone] PCP - General Family Medicine 04/24/17 documented as of this encounter
--- OUTSIDE RECORDS SUMMARY | 2024-11-04 13:53 | XMS_ITS | Encounter Summary ---
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
--- OUTSIDE RECORDS SUMMARY | 2024-11-04 13:53 | XMS_ITS | Encounter Summary ---
Author Organization [facility] Address [address] [place] [address] Care Team Providers Care Offensive Coordinator Name Role Phone Shawna Garcia MD Primary Care Provider [phone] Mukul Jeong Primary Care Provider [phone] Abel Mclaughlin Primary Care Provider [phone] Encounter Details Date Type Department Care Team (Late st Contact Info) Description 01/11/[address] [facility] Urology [address] [facility] [address] [place] [address] Viet Sutherland MD [facility] [address] [facility] [address] [place] [address] Social History Tobacco Use Types Packs/Day Years Used Date Smoking Tobacco: Never Assessed Sex and Gender Information Value Date Recorded Sex Assigned at Not on file Legal Sex Male 8:39 PM EDT Gender Identity Not on file Sexual Orientation Not on file documented as of this encounter Plan of Treatment Not on file documented as of this encounter Procedures * Due to [place] [employer] law, this organization might not be sharing negative HIV tests. Procedure Name Priority Date/Time Associated Diagnosis Comments CULTURE, URINE Routine 01/11/2009 Post-Void Dribbling Dysuria URINALYSIS, COMPLETE (DIP & MICRO) Routine 01/11/2009 Post-Void Dribbling Dysuria documented in this encounter Results * Due to [place] [employer] law, this organization might not be sharing negative HIV tests. * (ABNORMAL) URINALYSIS, COMPLETE (DIP & MICRO) (01/11/2009) COLOR (URINE) YELLOW YELLOW [facility] APPEARANCE (URINE) CLEAR CLEAR [facility] SPECIFIC GRAVITY 1.022 1.001 - 1.035 [facility] PH (URINE) 5.0 5.0 - 8.0 [facility] PROTEIN (URINE) NEG NEG [facility] GLUCOSE (URINE) NEG NEG [facility] Ketones (Urine) NEG NEG [facility] BILIRUBIN (URINE) NEG NEG [facility] BLOOD (URINE) 2+(A) NEG [facility] WBC (URINE) 1+(A) NEG [facility] NITRITE (URINE) NEG NEG [facility] WBC (URINE) 6-10(A) 0-4/HPF [facility] RBC (Urine Sed) 10-20(A) 0-3/HPF [facility] EPITHELIAL CELLS.SQUAMOUS (URINE SED) 0 0-5/HPF [facility] EPITHELIAL CELLS.TRANSITI ONAL (URINE SED) 0 0-5/HPF [facility] EPITHELIAL CELLS.RENAL (URINE SED) 0 0-3/HPF [facility] BACTERIA (URINE) NONE SEEN NONE SEEN [facility] URINE CALCIUM OXYLATE CRYSTALS MODERATE NONE-FEW/H PF [facility] 01/11/2009 01/11/2009 9:0 8 PM EDT us Viet Sutherland MD LAB SAME DAY RESULT Final Resu lt Performing Organization Address [facility] de Phone Number [facility] [address] [place] [address] * CULTURE, URINE (01/11/2009) URINE CULTURE CLEAN VOID SEE TEXT [facility] Comment: SOURCE: URINE NO GROWTH 01/11/2009 01/11/2009 9:0 8 PM EDT us Viet Sutherland MD LABORATORY Final Result Performing Organization Address [facility] Co de Phone Number [facility] [address] [place] [address] documented in this encounter Visit Diagnoses Diagnosis Post-void dribbling Dysuria documented in this encounter Additional Health Concerns Infection Onset Date Last Indicated Resolved Time COVID-19 Confirmed 07/08/2023 07/08/2023 documented as of this encounter Care Teams Offensive Coordinator Relationship Specialty Start Date End Date Shawna Garcia MD [facility] [address] [place] [phone] PCP - General 05/14/07 06/30/11 Mukul Jeong [address] [phone] PCP - General Family Medicine 07/01/11 04/23/17 Abel Mclaughlin [address] [place] [phone] PCP - General Family Medicine 04/24/17 documented as of this encounter
--- OUTSIDE RECORDS SUMMARY | 2024-11-04 13:53 | XMS_ITS | Encounter Summary ---
Author Organization [facility] Address [address] [place] [address] Care Team Providers Care Monument Mason Name Role Phone Shawna Garcia MD Primary Care Provider [phone] Mukul Jeong Primary Care Provider [phone] Abel Mclaughlin Primary Care Provider [phone] Encounter Details Date Type Department Care Team (Late st Contact Info) Description 04/28/2011 Orders Only [facility] [address] [facility] [address] [place] [address] James Brand MD [address] [place] [address] Social History Tobacco Use Types Packs/Day Years [...] of this encounter Procedures * Due to [place] [employer] law, this organization might not be sharing negative HIV tests. Procedure Name Priority Date/Time Associated Diagnosis Comments URINALYSIS, COMPLETEW/REFLEX TO CULTURE Routine 04/28/2011 4:43 PM EDT Dysuria documented in this encounter Results * Due to [place] [employer] law, this organization might not be sharing negative HIV tests. * (ABNORMAL) URINALYSIS, COMPLETEW/REFLEX TO CULTURE (04/28/2011 4:43 PM EDT) Color (Urine) YELLOW YELLOW [facility] Comment:{COLOR {[id number]) Appearance (Urine) CLEAR CLEAR [facility] Comment:{APPEARANCE {[id number]) Specific gravity (Urine) 1.019 1.001 - 1.035 [facility] Comment:{SPECIFIC GRAVITY {[id number]) pH (Urine) 7.0 5.0 - 8.0 [facility] Comment:{PH {[id number]) Glucose (Urine) NEGATIVE NEGATIVE [facility] Comment:{GLUCOSE {[id number]) Bilirubin (Urine) NEGATIVE NEGATIVE [facility] Comment:{BILIRUBIN {[id number]) Ketones (Urine) NEGATIVE NEGATIVE [facility] Comment:{KETONES {[id number]) Hemoglobin (Urine) 2+(A) NEGATIVE [facility] Comment:{OCCULT BLOOD {[id number]) Protein (Urine) NEGATIVE NEGATIVE [facility] Comment:{PROTEIN {[id number]) Nitrite (Urine) NEGATIVE NEGATIVE [facility] Comment:{NITRITE {[id number]) Leukocyte esterase (Urine) NEGATIVE NEGATIVE [facility] Comment:{LEUKOCYTE ESTERASE {[id number]) WBC (Urine) 0-5 < OR = 5 /HPF [facility] Comment:{WBC {[id number]) RBC (Urine Sed) 20-40(A) < OR = 3 /HPF [facility] Comment:{RBC {[id number]) Epithelial cells.squamous (Urine sed) NONE SEEN < OR = 5 /HPF [facility] Comment:{SQUAMOUS EPITHELIAL CELLS {[id number]) Bacteria (Urine) NONE SEEN NONE SEEN /HPF [facility] Comment:{BACTERIA {[id number]) Hyaline casts (Urine sed) NONE SEEN NONE SEEN /LPF [facility] Comment:{HYALINE CAST {[id number]) 04/28/2011 4:43 PM EDT 04/29/2011 12:30 AM EDT Narrative Resulting Agency Comment [id number] us James Brand MD LABORATORY Final Result [facility] [address] [place] [address] documented in this encounter Visit Diagnoses Diagnosis Dysuria documented in this encounter Additional Health Concerns Infection Onset Date Last Indicated Resolved Time COVID-19 Confirmed 07/08/2023 07/08/2023 documented as of this encounter Care Teams Monument Mason Relationship Specialty Start Date End Date Shawna Garcia MD [facility] [address] [place] [address] [address] [place] [address] PCP - General 05/14/07 06/30/11 Mukul Jeong [facility] [address] [place] [address] PCP - General Family Medicine 07/01/11 04/23/17 Abel Mclaughlin [address] [place] [address] PCP - General Family Medicine 04/24/17 documented as of this encounter
--- OUTSIDE RECORDS SUMMARY | 2024-11-04 13:53 | XMS_ITS | Encounter Summary ---
Author Organization [facility] Address [address] [place] [address] Care Team Providers Care Millstone Cleaner Name Role Phone Shawna Garcia MD Primary Care Provider [phone] Mukul Jeong Primary Care Provider [phone] Abel Mclaughlin Primary Care Provider [phone] Encounter Details Date Type Department Care Team (Late st Contact Info) Description 06/11/2010 Orders Only [facility] [address] [facility] [address] [place] [address] James Brand MD [address] [place] [address] Social History Tobacco Use Types Packs/Day Years Used Date Smoking Tobacco: Never Assessed Sex and Gender Information Value Date Recorded Sex Assigned at Not on file Legal Sex Male 8:39 PM EDT Gender Identity Not on file Sexual Orientation Not on file documented as of this encounter Plan of Treatment Not on file documented as of this encounter Procedures * Due to [place] [employer] law, this organization might not be sharing negative HIV tests. Procedure Name Priority Date/Time Associated Diagnosis Comments URINALYSIS,C&S IF INDICATED Routine 06/11/2010 Dysuria documented in this encounter Results * Due to [place] [employer] law, this organization might not be sharing negative HIV tests. * (ABNORMAL) URINALYSIS,C&S IF INDICATED (06/11/2010) COLOR (URINE) YELLOW YELLOW [facility] APPEARANCE (URINE) CLEAR CLEAR [facility] SPECIFIC GRAVITY 1.021 1.001 - 1.035 [facility] PH (URINE) 7.0 5.0 - 8.0 [facility] PROTEIN (URINE) 2+(A) NEG [facility] GLUCOSE (URINE) NEG NEG [facility] Ketones (Urine) NEG NEG [facility] BILIRUBIN (URINE) NEG NEG [facility] BLOOD (URINE) 2+(A) NEG [facility] WBC (URINE) NEG NEG [facility] NITRITE (URINE) NEG NEG [facility] WBC (URINE) 0-5 0-4/HPF [facility] RBC (Urine Sed) 10-20(A) 0-3/HPF [facility] EPITHELIAL CELLS.SQUAMOUS (URINE SED) 0 0-5/HPF [facility] EPITHELIAL CELLS.TRANSITI ONAL (URINE SED) 0 0-5/HPF [facility] EPITHELIAL CELLS.RENAL (URINE SED) 0 0-3/HPF [facility] BACTERIA (URINE) NONE SEEN NONE SEEN [facility] 06/11/2010 06/11/2010 11: 31 PM EST us James Brand MD LABORATORY Final Result Performing Organization Address City/State/[facility] Co de Phone Number [facility] [address] [place] [address] documented in this encounter Visit Diagnoses Diagnosis Dysuria documented in this encounter Additional Health Concerns Infection Onset Date Last Indicated Resolved Time COVID-19 Confirmed 07/08/2023 07/08/2023 documented as of this encounter Care Teams Millstone Cleaner Relationship Specialty Start Date End Date Shawna Garcia MD [facility] [address] [place] [phone] PCP - General 05/14/07 06/30/11 Mukul Jeong [facility] [address] [place] [phone] PCP - General Family Medicine 07/01/11 04/23/17 Abel Mclaughlin [address] [place] [phone] PCP - General Family Medicine 04/24/17 documented as of this encounter
--- OUTSIDE RECORDS SUMMARY | 2024-11-04 13:54 | XMS_ITS | Encounter Summary ---
Author Organization [facility] Address [address] [place] [address] Care Team Providers Care Cutting Machine Operator Name Role Phone Arnoldo Abel Stern Primary Care Provider [phone] Encounter Details Date Type Department Care Team ([facility] st Contact Info) Description 08/26/2017 Orders Only [facility] Infectious Disease [address] [facility] [address] [place] [address] Tomasz Robbins MD [address] [place] [address] Social History Tobacco Use Types Packs/Day Years [...] as of this encounter Progress Notes * Tomasz Robbins MD - 09/09/2017 7:14 PM EST The lab data was reviewed with the patient during a telephone conversation. Please see telephone message. * Tomasz Robbins MD - 09/09/2017 7:13 PM EST . documented in this encounter Plan of Treatment Not on file documented as of this encounter Procedures * Due to [place] [employer] law, this organization might not be sharing negative HIV tests. Procedure Name Priority Date/Time Associated Diagnosis Comments CULTURE, URINE, ROUTINE Routine 08/26/2017 3:46 PM EST Hematuria, unspecified type URINALYSIS, COMPLETE INCLUDES DIPSTICK AND MICROSCOPIC Routine 08/26/2017 3:46 PM EST Hematuria, unspecified type documented in this encounter Results * Due to [place] [employer] law, this organization might not be sharing negative HIV tests. * CULTURE, URINE, ROUTINE (08/26/2017 3:46 PM EST) Bacteria culture (Urine) SEE NOTE [facility] Comment: ??CULTURE, URINE, ROUTINE ??MICRO NUMBER: ?[id number] ??TEST STATUS: ? FINAL ??SPECIMEN SOURCE: ?? URINE ??SPECIMEN QUALITY: ??ADEQUATE ??RESULT: ?No Growth 08/26/2017 3:46 PM EST 08/26/2017 9:43 PM EST Narrative Resulting Agency Comment [id number] us Tomasz Robbins MD LABORATORY Final Resul t Performing Organization Address City/State/[facility] Co de Phone Number [facility] [address] [place] [address] * (ABNORMAL) URINALYSIS, COMPLETE INCLUDES DIPSTICK AND MICROSCOPIC (08/26/2017 3:46 PM EST) Color (Urine) YELLOW YELLOW [facility] Appearance (Urine) CLEAR CLEAR [facility] Specific gravity (Urine) 1.007 1.001 - 1.035 [facility] pH (Urine) 6.0 5.0 - 8.0 [facility] Glucose (Urine) NEGATIVE NEGATIVE [facility] Bilirubin (Urine) NEGATIVE NEGATIVE [facility] Ketones (Urine) NEGATIVE NEGATIVE [facility] Hemoglobin (Urine) 2+(A) NEGATIVE [facility] Protein (Urine) NEGATIVE NEGATIVE [facility] Nitrite (Urine) NEGATIVE NEGATIVE [facility] Leukocyte esterase (Urine) NEGATIVE NEGATIVE [facility] WBC (Urine) NONE SEEN < OR = 5 /HPF [facility] RBC (Urine Sed) 3-10(A) < OR = 2 /HPF [facility] Epithelial cells.squamous (Urine sed) NONE SEEN < OR = 5 /HPF [facility] Bacteria (Urine) NONE SEEN NONE SEEN /HPF [facility] Hyaline casts (Urine sed) NONE SEEN NONE SEEN /LPF [facility] 08/26/2017 3:46 PM EST 08/26/2017 9:43 PM EST Narrative Resulting Agency Comment [id number] us Toamsz Robbins MD LAB SAME DAY RESULT Final R esult Performing Organization Address City/State/[facility] Co de Phone Number [facility] [address] [place] [address] documented in this encounter Visit Diagnoses Diagnosis Hematuria, unspecified type documented in this encounter Additional Health Concerns Infection Onset Date Last Indicated Resolved Time COVID-19 Confirmed 07/08/2023 07/08/2023 documented as of this encounter Care Teams Cutting Machine Operator Relationship Specialty Start Date End Date Abel Mclaughlin [address] [place] [phone] PCP - General Family Medicine 04/24/17 documented as of this encounter
--- OUTSIDE RECORDS SUMMARY | 2024-11-04 13:54 | XMS_ITS | Encounter Summary ---
Author Organization [facility] Address [address] [place] [address] Care Team Providers Care Baker Paint Name Role Phone Abel Mclaughlin Primary Care Provider [phone] Encounter Details Date Type Department Care Team (Late st Contact Info) Description 08/12/2019 Orders Only [facility] Hematology/Oncology 1 [facility] [address] [place] [phone] Albert Noble MD [address] [place] [address] Social History Tobacco Use Types Packs/Day Years [...] of this encounter Procedures * Due to [place] state law, this organization might not be sharing negative HIV tests. Procedure Name Priority Date/Time Associated Diagnosis Comments RETICULOCYTE COUNT Routine 08/12/2019 2: 16 PM EST Asymptomatic microscopic hematuria CBC INCLUDES DIFFERENTIAL AND PLATELET COUNT Routine 08/12/2019 2:16 PM EST Asymptomatic microscopic hematuria LACTATE DEHYDROGENASE (LDH), SERUM Routine 08/12/2019 2:16 PM EST Asymptomatic microscopic hematuria VENIPUNCTURE Routine 08/12/2019 2:16 PM EST Asymptomatic microscopic hematuria documented in this encounter Results * Due to [place] state law, this organization might not be sharing negative HIV tests. * LACTATE DEHYDROGENASE (LDH), SERUM (08/12/2019 2:16 PM EST) Lactate dehydrogenase 108 100 - 220 U/L [facility] 08/12/2019 2:16 PM EST 08/12/2019 11:40 PM EST Narrative Resulting Agency Comment [id number] Albert Noble MD LABORATORY Final Result [facility] [address] [place] [address] * CBC INCLUDES DIFFERENTIAL AND PLATELET COUNT (08/12/2019 2:16 PM EST) WBC 9.1 3.8 - 10.8 Thousand/u L [facility] RBC 4.96 4.20 - 5.80 Million/uL [facility] Hemoglobin 15.7 13.2 - 17.1 g/dL [facility] Hematocrit 44.4 38.5 - 50.0 % [facility] MCV 89.5 80.0 - 100.0 fL [facility] MCH 31.7 27.0 - 33.0 pg [facility] MCHC 35.4 32.0 - 36.0 g/dL [facility] RDW 12.6 11.0 - 15.0 % [facility] PLT 230 140 - 400 Thousand/u L [facility] MPV 10.4 7.5 - 12.5 fL [facility] Neutrophils # 5606 1500 - 7800 cells/uL [facility] Lymphocytes # 2776 850 - 3900 cells/uL [facility] Monocytes # 537 200 - 950 cells/uL [facility] Eosinophils # 137 15 - 500 cells/uL [facility] Basophils # 46 0 - 200 cells/uL [facility] Neutrophils % 61.6 % [facility] Lymphocytes % 30.5 % [facility] Monocytes % 5.9 % [facility] Eosinophils % 1.5 % [facility] Basophils % 0.5 % [facility] 08/12/2019 2:16 PM EST 08/12/2019 11:40 PM EST Narrative Resulting Agency Comment [id number] us Albert Noble MD LAB SAME DAY RESULT Final Resul t [facility] [address] [place] [address] * HAPTOGLOBIN, SERUM (08/12/2019 2:16 PM EST) Haptoglobin 191 43 - 212 mg/dL [facility] 08/12/2019 2:1 6 PM EST 08/12/2019 11:40 PM EST Narrative Resulting Agency Comment [id number] us Albert Noble MD LABORATORY Final Result Performing Organization Address City/[facility]/ZIP Co de Phone Number [facility] [address] [place] [address] * RETICULOCYTE COUNT (08/12/2019 2:16 PM EST) Reticulocytes/100 erythrocytes (RBC) 0.9 % [facility] Reticulocytes (RBC) 34781 88228 - 95455 cells/uL [facility] 08/12/2019 2:16 PM EST 08/12/2019 11:40 PM EST Narrative Resulting Agency Comment [id number] us Albert Noble MD LABORATORY Final Result Performing Organization Address City/[facility] Co de Phone Number [facility] [address] [place] [address] documented in this encounter Visit Diagnoses Diagnosis Asymptomatic microscopic hematuria documented in this encounter Additional Health Concerns Infection Onset Date Last Indicated Resolved Time COVID-19 Confirmed 07/08/2023 07/08/2023 documented as of this encounter Care Teams Baker Paint Relationship Specialty Start Date End Date Abel Mclaughlin [address] [place] [phone] PCP - General Family Medicine 04/24/17 documented as of this encounter
--- OUTSIDE RECORDS SUMMARY | 2024-11-04 13:54 | XMS_ITS | Encounter Summary ---
Author Organization [facility] Address [address] [place] [address] Care Team Providers Care Solar Systems Designer Name Role Phone Abel Mclaughlin Primary Care Provider [phone] Encounter Details Date Type Department Care Team ([facility] st Contact Info) Description 05/12/2019 Orders Only [facility] Urology [address] [facility] [address] [place] [address] Mely Valentine, FILE CLERK [address] [place] [address] Social History Tobacco Use Types Packs/Day Years [...] of this encounter Procedures * Due to [place] [employer] law, this organization might not be sharing negative HIV tests. Procedure Name Priority Date/Time Associated Diagnosis Comments URINALYSIS DIP W/ REFLEX TO MICROSCOPIC+CULTURE Routine 05/12/2019 4:42 PM EDT Hematuria, unspecified type Dysuria URINALYSIS, MICROSCOPIC Routine 05/12/2019 4:42 PM EDT documented in this encounter Results * Due to [place] [employer] law, this organization might not be sharing negative HIV tests. * (ABNORMAL) URINALYSIS, MICROSCOPIC (05/12/2019 4:42 PM EDT) WBC (Urine) NONE SEEN < OR = 5 /HPF [facility] RBC (Urine Sed) 20-40(A) < OR = 2 /HPF [facility] Epithelial cells.squamous (Urine sed) NONE SEEN < OR = 5 /HPF [facility] Bacteria (Urine) MANY(A) NONE SEEN /HPF [facility] Calcium oxalate crystals (Urine sed) MODERATE( A) NONE OR FEW /HPF [facility] Hyaline casts (Urine sed) NONE SEEN NONE SEEN /LPF [facility] 05/12/2019 4:42 PM EDT 05/12/2019 10:47 PM EDT Mely Valentine NP LAB SAME DAY RESULT Jodi layton Result Performing Organization Address [facility] Co de Phone Number [facility] [address] [place] [address] * (ABNORMAL) URINALYSIS DIP W/ REFLEX TO MICROSCOPIC+CULTURE (05/12/2019 4:42 PM EDT) Color (Urine) DARK [facility]LLOW [facility] Appearance (Urine) TURBID(A) CLEAR [facility] Specific gravity (Urine) 1.025 1.001 - 1.035 [facility] pH (Urine) < OR = 5.0 5.0 - 8.0 [facility] Glucose (Urine) NEGATIVE NEGATIVE [facility] Bilirubin (Urine) NEGATIVE NEGATIVE [facility] Ketones (Urine) NEGATIVE NEGATIVE [facility] Hemoglobin (Urine) 3+(A) NEGATIVE [facility] Protein (Urine) NEGATIVE NEGATIVE [facility] Nitrite (Urine) NEGATIVE NEGATIVE [facility] Leukocyte esterase (Urine) NEGATIVE NEGATIVE [facility] 05/12/2019 4:42 PM EDT 05/12/2019 10:47 PM EDT Narrative Resulting Agency Comment [id number] Mely Valentine NP LABORATORY Final Re sult Performing Organization Address [facility] Co de Phone Number [facility] [address] [place] [address] documented in this encounter Visit Diagnoses Diagnosis Hematuria, unspecified type Dysuria documented in this encounter Additional Health Concerns Infection Onset Date Last Indicated Resolved Time COVID-19 Confirmed 07/08/2023 07/08/2023 documented as of this encounter Care Teams Solar Systems Designer Relationship Specialty Start Date End Date Abel Mclaughlin [address] [place] [phone] PCP - General Family Medicine 04/24/17 documented as of this encounter
--- OUTSIDE RECORDS SUMMARY | 2024-11-04 13:54 | XMS_ITS | Encounter Summary ---
Author Organization [facility] Address [address] [place] [address] Care Team Providers Care Trackman Name Role Phone ArnoldoAbel mccormick Primary Care Provider [phone] Encounter Details Date Type Department Care Team ([facility] st Contact Info) Description 06/24/2017 Orders Only [facility] Infectious Disease [address] [facility] [address] [place] [address] Tomasz Robbins MD [address] [place] [address] Social History Tobacco Use Types Packs/Day Years [...] Progress Notes * Tomasz Robbins MD - 07/17/2017 8:28 PM EST The lab data was reviewed with the patient during a telephone conversation. Please see telephone message. documented in this encounter Plan of Treatment Not on file documented as of this encounter Procedures * Due to [place] state law, this organization might not be sharing negative HIV tests. Procedure Name Priority Date/Time Associated Diagnosis Comments OVA AND PARASITES, SINGLE SET, STOOL WITH PERMANENT STAIN Routine 06/24/2017 12:58 PM EST Hematuria, unspecified type documented in this encounter Results * Due to [place] state law, this organization might not be sharing negative HIV tests. * OVA AND PARASITES, SINGLE SET, STOOL WITH PERMANENT STAIN (06/24/2017 12:58 PM EST) Ova+Parasites identified (Stool) SEE NOTE [facility] Comment: ??OVA AND PARASITES, CONC AND PERM SMEAR ??MICRO NUMBER: ?[id number] ??TEST STATUS: ? FINAL ??SPECIMEN SOURCE: ?? URINE ??SPECIMEN QUALITY: ??ADEQUATE ??CONCENTRATION 1: ?? No Schistosoma eggs seen ??TRICHROME 1: ? Test not performed. ? Routine Ova and Parasite exam may not detect some ? parasites that occasionally cause diarrheal ? illness. Test code(s) 45612 (Cryptosporidium Ag., ? DFA) and/or 59697 (Cyclospora and Isospora Exam) ? may be ordered to detect these parasites. One ? negative sample does not necessarily rule out ? the presence of a parasitic infection. 06/24/2017 12:5 8 PM EST 06/25/2017 1:58 AM EST Narrative Resulting Agency Comment [id number] us Tomasz Robbins MD LABORATORY Final Resul t [facility] [address] [place] [address] documented in this encounter Visit Diagnoses Diagnosis Hematuria, unspecified type documented in this encounter Additional Health Concerns Infection Onset Date Last Indicated Resolved Time COVID-19 Confirmed 07/08/2023 07/08/2023 documented as of this encounter Care Teams Trackman Relationship Specialty Start Date End Date Abel Mclaughlin [address] [place] [phone] PCP - General Family Medicine 04/24/17 documented as of this encounter
--- OUTSIDE RECORDS SUMMARY | 2024-11-04 13:54 | XMS_ITS | Encounter Summary ---
Author Organization [facility] Address [address] [place] [address] Care Team Providers Care Recruiting Manager Name Role Phone Arnoldo, Abel Leena Primary Care Provider [phone] Encounter Details Date Type Department Care Team ([facility] st Contact Info) Description 06/05/2017 Orders Only [facility] Infectious Disease [address] [facility] [address] [place] [address] Tomasz Robbins MD [address] [place] [address] Social History Tobacco Use Types Packs/Day Years [...] Progress Notes * Tomasz Robbins MD - 06/17/2017 7:40 PM EST The lab data was reviewed with the patient during a telephone conversation. Please see telephone message. documented in this encounter Plan of Treatment Scheduled Orders Name Type Priority Associated Diagnoses Orde r Schedule ACID-FAST SMEAR AND CULTURE, MYCOBACTERIUM (URINE) Lab Routine Hematuria, unspecified type as needed for 2 Occurrences starting 06/05/2017 until 06/05/2018 documented as of this encounter Procedures * Due to [place] state law, this organization might not be sharing negative HIV tests. Procedure Name Priority Date/Time Associated Diagnosis Comments QUANTIFERON(R)-TB GOLD Routine 7 2:40 PM EST Hematuria, unspecified type COMPREHENSIVE METABOLIC PANEL WITH GFR Routine 06/05/2017 2:40 PM EST Hematuria, unspecified type documented in this encounter Results * Due to [place] law, this organization might not be sharing negative HIV tests. * COMPREHENSIVE METABOLIC PANEL WITH GFR (06/05/2017 2:40 PM EST) Glucose 78 65 - 99 mg/dL [facility] Comment:Fasting reference in terval Urea Nitrogen Blood (BUN) 12 7 - 25 mg/dL [facility] Creatinine 0.95 0.60 - 1.35 mg/dL [facility] GFR 95 > OR = 60 mL/min/1 .73m2 [facility] GFR () 110 > OR = 60 mL/min/1 .73m2 [facility] BUN/Creatinine Ratio NOT APPLICABLE 6 - 22 (calc) [facility] Sodium 141 135 - 146 mmol/L [facility] Potassium 4.3 3.5 - 5.3 mmol/L [facility] Chloride 105 98 - 110 mmol/L [facility] Carbon dioxide 30 20 - 31 mmol/L [facility] Calcium 9.5 8.6 - 10.3 mg/dL [facility] Protein Total (Serum) 6.5 6.1 - 8.1 g/dL [facility] Albumin 4.4 3.6 - 5.1 g/dL [facility] Globulin 2.1 1.9 - 3.7 g/dL (calc) [facility] Albumin/Globuli n 2.1 1.0 - 2.5 (calc) [facility] Bilirubin Total 0.6 0.2 - 1.2 mg/dL [facility] Alkaline phosphatase 67 40 - 115 U/L [facility] AST (SGOT) 12 10 - 40 U/L [facility] ALT (SGPT) 11 9 - 46 U/L [facility] 06/05/2017 2:40 PM EST 06/05/2017 8:41 PM EST Narrative [facility] - 06/06/2017 1:16 AM EST Please note that this estimated GFR does not include an adjustment for the patient's height or weight, and can therefore, be viewed as reliable only for patients with heights between 60 and 72 . More precise quantification using a 24-hour urine sample or height-based algorithm is recommended for patients outside of this range of height and for those individuals with more precise needs for GFR calculation. Resulting Agency Comment [id number] Tomasz Robbins MD LABORATORY Final Resul t [facility] [address] [place] [address] * QUANTIFERON(R)-TB GOLD (06/05/2017 2:40 PM EST) [facility] Quantiferon(R) - TB Gold NEGATIVE NEGATIVE [facility] Comment: Negative test result. M. tuberculosis complex infection unlikely. TB1 0.07 IU/mL [facility] Mycobacterium tuberculosis tuberculin stimulated gamma interferon/Mitoge n stimulated gamma interferon (Blood^control) 8.62 IU/mL [facility] Mycobacterium tuberculosis tuberculin stimulated gamma interferon^correc alyson for background <0.00 IU/mL [facility] Comment: The Nil tube value is used to determine if the patient has a preexisting immune response which could cause a false-positive reading on the test. In order for a test to be valid, the Nil tube must have a value of less than or equal to 8.0 IU/mL. The mitogen control tube is used to assure the patient has a healthy immune status and also serves as a control for correct blood handling and incubation. It is used to detect false-negative readings. The mitogen tube must have a gamma interferon value of greater than or equal to 0.5 IU/mL higher than the value of the Nil tube. The TB antigen tube is coated with the M. tuberculosis specific antigens. For a test to be considered positive, the TB antigen tube value minus the Nil tube value must be greater than or equal to 0.35 IU/mL. For additional information, please refer to http://education.[employer].GlobalLogic/faq/QFT (This link is being provided for informational/ educational purposes only.) 06/05/2017 2:40 PM EST 06/05/2017 8:41 PM EST Narrative Resulting Agency Comment [id number] Tomasz Robbins MD LABORATORY Final Resul t [facility] [address] [place] [address] documented in this encounter Visit Diagnoses Diagnosis Hematuria, unspecified type documented in this encounter Additional Health Concerns Infection Onset Date Last Indicated Resolved Time COVID-19 Confirmed 07/08/2023 07/08/2023 documented as of this encounter Care Teams Recruiting Manager Relationship Specialty Start Date End Date Abel Mclaughlin [address] [place] [phone] PCP - General Family Medicine 04/24/17 documented as of this encounter
--- OUTSIDE RECORDS SUMMARY | 2024-11-04 13:54 | XMS_ITS | Encounter Summary ---
Author Organization [facility] Address [address] [place] [address] Care Team Providers Care It Systems Analyst Name Role Phone ArnoldoAbel mccormick Primary Care Provider Encounter Details Date Type Department Care Team ([facility] st Contact Info) Description 09/22/2019 Orders Only [facility] Infectious Disease [address] [facility] [address] [place] [address] Gary Bojorquez MD [address] [place] [address] Social History Tobacco Use Types Packs/Day Years [...] as of this encounter Progress Notes * Gary Bojorquez MD - 09/22/2019 2:03 PM EST I called and inform patient of negative STI results Advised follow-up with primary care physician and his urologist on a regular basis on account of ongoing bladder abnormalities and hematuria. He thanked me for the call documented in this encounter Plan of Treatment Not on file documented as of this encounter Procedures * Due to [place] state law, this organization might not be sharing negative HIV tests. Procedure Name Priority Date/Time Associated Diagnosis Comments CHLAMYDIA TRACHOMATIS/N. GONORRHOEAE (GC) RNA, TMA (URINE) Routine 09/22/2019 2:03 PM EST Hematuria, unspecified type VENIPUNCTURE Routine 09/22/2019 2:03 PM EST Hematuria, unspecified type documented in this encounter Results * Due to [place] state law, this organization might not be sharing negative HIV tests. * RPR, (RAPID PLASMIN REAGIN) WITH REFLEX TO FTA, DIAGNOSTIC (09/22/2019 2:03 PM EST) Reagin Ab NON-REACTI VE NON-REACTI VE [facility] 09/22/2019 2:03 PM EST 09/22/2019 10:12 PM EST Narrative Resulting Agency Comment [id number] Gary Bojorquez MD LABORATORY Final Result Performing Organization Address [facility] de Phone Number [facility] [address] [place] [address] * CHLAMYDIA TRACHOMATIS/N. GONORRHOEAE (GC) RNA, TMA (URINE) (09/22/2019 2:03 PM EST) Chlamydia trachomatis rRNA NOT DETECTED NOT DETECTED [facility] Neisseria Gonorrhoeae rRNA NOT DETECTED NOT DETECTED [facility] COMMENT SEE NOTE [facility] Comment: The analytical performance characteristics of this assay, when used to test SurePath(TM) specimens have been determined by [employer] The modifications have not been cleared or approved by the FDA. This assay has been validated pursuant to the CLIA regulations and is used for clinical purposes. For additional information, please refer to https://education.[employer].HomeShop18/faq/ILO035 (This link is being provided for information/ educational purposes only.) 09/22/2019 2:03 PM EST 09/22/2019 10:12 PM EST Narrative Resulting Agency Comment [id number] Gary Bojorquez MD LABORATORY Final Result Performing Organization Address [facility] de Phone Number [facility] [address] [place] [address] documented in this encounter Visit Diagnoses Diagnosis Hematuria, unspecified type documented in this encounter Additional Health Concerns Infection Onset Date Last Indicated Resolved Time COVID-19 Confirmed 07/08/2023 07/08/2023 documented as of this encounter Care Teams It Systems Analyst Relationship Specialty Start Date End Date Abel Mclaughlin [address] [place] [phone] PCP - General Family Medicine 04/24/17 documented as of this encounter
--- OUTSIDE RECORDS SUMMARY | 2024-11-04 13:54 | XMS_ITS | Encounter Summary ---
Author Organization [facility] Address [address] [place] [address] Care Team Providers Care Human Resource Analyst Name Role Phone Shawna Garcia MD Primary Care Provider [phone] Mukul Jeong Primary Care Provider [phone] Abel Mclaughlin Primary Care Provider [phone] Encounter Details Date Type Department Care Team (Late st Contact Info) Description 10/23/2010 Orders Only [facility] Urology [address] [facility] [address] [place] [address] Juana Johnson NP Social History Tobacco Use [...] Progress Notes * Juana Johnson NP - 10/25/2010 8:45 AM EDTQuick Note: Please contact patient: Although his culture returns negative, I would recommend he complete this present course of Macrobid. Have him call us a few days after he completes antibiotic. If he continues with symptoms after treatment, he should come in to see Dr. Brand who performed recent surgery. Thank you. Juana * Juana Johnson NP - 10/24/2010 3:36 PM EDTQuick Note: Empiric/started on Macrobid 10/23/10/ Awaiting final culture results. LP documented in this encounter Plan of Treatment Not on file documented as of this encounter Procedures * Due to [facility] law, this organization might not be sharing negative HIV tests. Procedure Name Priority Date/Time Associated Diagnosis Comments CULTURE, URINE Routine 10/23/2010 URINALYSIS,C&S IF INDICATED Routine 10/23/2010 Dysuria Tobacco abuse Bladder outlet obstruction documented in this encounter Results * Due to [place] law, this organization might not be sharing negative HIV tests. * CULTURE, URINE (10/23/2010) URINE CULTURE CLEAN VOID SEE TEXT [facility] Comment: SOURCE: URINE NO GROWTH 10/23/2010 10/24/2010 1:3 5 AM EDT Juana Johnson NP LABORATORY Final Result Performing Organization Address City/State/[place] de Phone Number [facility] [address] [place] [phone] * (ABNORMAL) URINALYSIS,C&S IF INDICATED (10/23/2010) COLOR (URINE) YELLOW YELLOW [facility] APPEARANCE (URINE) CLOUDY(A) CLEAR [facility] SPECIFIC GRAVITY 1.027 1.001 - 1.035 [facility] PH (URINE) 5.5 5.0 - 8.0 [facility] PROTEIN (URINE) 2+(A) [facility] GLUCOSE (URINE) NEG NEG [facility] Ketones (Urine) NEG NEG [facility] BILIRUBIN (URINE) NEG NEG [facility] BLOOD (URINE) 3+(A) NEG [facility] WBC (URINE) 3+(A) NEG [facility] NITRITE (URINE) NEG NEG [facility] WBC (URINE) 40-60(A) 0-4/HPF [facility] RBC (Urine Sed) > 60(A) 0-3/HPF [facility] EPITHELIAL CELLS.SQUAMOUS (URINE SED) 0 0-5/HPF [facility] EPITHELIAL CELLS.TRANSITIO NAL (URINE SED) 0 0-5/HPF [facility] EPITHELIAL CELLS.RENAL (URINE SED) 0 0-3/HPF [facility] BACTERIA (URINE) MODERATE(A ) NONE SEEN [facility] Microscopic Other (Urine) FEW MUCOUS(A) [facility] 10/23/2010 10/24/2010 1:3 5 AM EDT Juana Johnson NP LABORATORY Final Result [facility] [address] [place] [address] documented in this encounter Visit Diagnoses Diagnosis Dysuria Tobacco abuse Tobacco use disorder Bladder outlet obstruction Bladder neck obstruction documented in this encounter Additional Health Concerns Infection Onset Date Last Indicated Resolved Time COVID-19 Confirmed 07/08/2023 07/08/2023 documented as of this encounter Care Teams Human Resource Analyst Relationship Specialty Start Date End Date Shawna Garcia MD [facility] [address] [place] [phone] PCP - General 05/14/07 06/30/11 Mukul Jeong [facility] [address] [place] [address] PCP - General Family Medicine 07/01/11 04/23/17 Abel Mclaughlin [address] [place] [phone] PCP - General Family Medicine 04/24/17 documented as of this encounter
--- OUTSIDE RECORDS SUMMARY | 2024-11-04 13:54 | XMS_ITS | Encounter Summary ---
Author Organization [facility] Address [address] [place] [address] Care Team Providers Care Collection Administrator Name Role Phone Arnoldo GUTIERREZ MD, Abel Humphries Primary Care Prov ider Reason for Visit * Reason Onset Date Comments UTI 11/02/2024 Encounter Details Date Type Department Care Team (Late st Contact Info) Description 11/02/2024 Telephone [facility] [address] [facility] Department [address] [place] [address] [address] [place] [address] Abel Mclaughlin III, MD [address] [place] [address] UTI Social History Tobacco Use Types Packs/Day Years [...] 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 * Telephone Encounter - Bijal Mohr - 11/02/2024 12:40 PM EDT UTI SITUATION: Tony Carlton Jr., 1970 BACKGROUND/ HISTORY: history of UTI ASSESSMENT: Onset/ Duration: 3 days Description: back pain, goodman after urinating Pain: 5 Fever: No Other symptoms: blood in urine and low back pain OTC TREATMENTS TRIED: None PHARMACY: [facility] [place] CALL BACK NUMBER: [phone] Can a detailed message be left at that number? YES/NO: Yes Pt states he has a hernia below his stomach and doesn't know if this could be the cause. Pt states he usually has a urinalysis in his chart when patient needs to get one done. There is nothing active at this time. Please call pt back * Telephone Encounter - Mathew Currie - 11/02/2024 12:31 PM EDT PT called to R/S his appt that he no showed on 10/18. He stated that he was going to go to the lab to get a urinalysis done, but I do not see any active orders for one in his chart. He stated that youusually have him get one monthly. documented in this encounter Plan of Treatment Upcoming Encounters Date Type Department Care Team (Late st Contact Info) Description 11/08/2024 11:00 AM EDT Office Visit [address] [place] [phone] Abel Mclaughlin III, MD [address] [place] [address] documented as of this encounter Visit Diagnoses Not on filedocumented in this encounter Care Teams Collection Administrator Relationship Specialty Start Date End Date Abel Mclaughlin III, MD PCP - General 02/12/17 documented as of this encounter
--- OUTSIDE RECORDS SUMMARY | 2024-11-04 13:54 | XMS_ITS | Encounter Summary ---
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
--- OUTSIDE RECORDS SUMMARY | 2024-11-04 13:54 | XMS_ITS | Encounter Summary ---
Author Organization [facility] Address [address] [place] [address] Care Team Providers Care Marine Superintendent Name Role Phone ArnoldoAbel mccormick Primary Care Provider [phone] Encounter Details Date Type Department Care Team (Late st Contact Info) Description 07/24/2017 Orders Only [facility] Infectious Disease [address] [facility] [address] [place] [address] Darby Cordero RN Social History Tobacco Use Types Packs/Day Years [...] as of this encounter Progress Notes * Darby Cordero - 07/28/2017 7:45 AM EST . * Darby Cordero - 07/24/2017 4:48 PM EST . * Darby Cordero - 07/24/2017 4:15 PM EST . documented in this encounter Plan of Treatment Not on file documented as of this encounter Procedures * Due to [place] state law, this organization might not be sharing negative HIV tests. Procedure Name Priority Date/Time Associated Diagnosis Comments CULTURE, URINE, ROUTINE Routine 07/24/2017 12:44 PM EST Hematuria, unspecified type ACTIVATED PARTIAL THROMBOPLASTIN TIME (APTT), PLASMA Routine 07/24/2017 12:44 PM EST Hematuria, unspecified type PROTHROMBIN TIME (PT) (INR), BLOOD Routine 07/24/2017 12:44 PM EST Hematuria, unspecified type CBC INCLUDES DIFFERENTIAL AND PLATELET COUNT Routine 07/24/2017 12:44 PM EST Hematuria, unspecified type URINALYSIS, COMPLETE INCLUDES DIPSTICK AND MICROSCOPIC Routine 07/24/2017 12:44 PM EST Hematuria, unspecified type COMPREHENSIVE METABOLIC PANEL WITH GFR Routine 07/24/2017 12:44 PM EST Hematuria, unspecified type documented in this encounter Results * Due to [place] state law, this organization might not be sharing negative HIV tests. * CULTURE, URINE, ROUTINE (07/24/2017 12:44 PM EST) Bacteria culture (Urine) SEE NOTE [facility] Comment: ??CULTURE, URINE, ROUTINE ??MICRO NUMBER: ?[id number] ??TEST STATUS: ? FINAL ??SPECIMEN SOURCE: ?? URINE ??SPECIMEN QUALITY: ??ADEQUATE ??RESULT: ?No Growth 07/24/2017 12:4 4 PM EST 07/24/2017 2:43 PM EST Narrative Resulting Agency Comment [id number] us Tomasz Robbins MD LABORATORY Final Resul t [facility] [address] [place] [address] * (ABNORMAL) URINALYSIS, COMPLETE INCLUDES DIPSTICK AND MICROSCOPIC (07/24/2017 12:44 PM EST) Color (Urine) YELLOW YELLOW [facility] Appearance (Urine) TURBID(A) CLEAR [facility] Specific gravity (Urine) 1.019 1.001 - 1.035 [facility] pH (Urine) 7.0 5.0 - 8.0 [facility] Glucose (Urine) NEGATIVE NEGATIVE [facility] Bilirubin (Urine) NEGATIVE NEGATIVE [facility] Ketones (Urine) NEGATIVE NEGATIVE [facility] Hemoglobin (Urine) 2+(A) NEGATIVE [facility] Protein (Urine) 1+(A) NEGATIVE [facility] Nitrite (Urine) NEGATIVE NEGATIVE [...] NONE SEEN NONE SEEN /LPF [facility] Service comment 01 SEE NOTE [facility] Comment:Spermatozoa present 07/24/2017 12:4 4 PM EST 07/24/2017 2:43 PM EST Narrative Resulting Agency Comment [id number] Tomasz Robbins MD LAB SAME DAY RESULT Final R esult Performing Organization Address City/State/[facility] Co de Phone Number [facility] [address] [place] [address] * ACTIVATED PARTIAL THROMBOPLASTIN TIME (APTT), PLASMA (07/24/2017 12:44 PM EST) Thromboplastin Time 29 22 - 34 sec [facility] Comment: This test has not been validated for monitoring unfractionated heparin therapy. For testing that is validated for this type of therapy, please refer to the Heparin Anti-Xa assay (test code 52292). For additional information, please refer to http://education.Plan Me Up.eToro/faq/EZX104 (This link is being provided for informational/educational purposes only.) 07/24/2017 12:4 4 PM EST 07/24/2017 2:43 PM EST Narrative Resulting Agency Comment [id number] us Tomasz Robbins MD LAB SAME DAY RESULT Final R esult Performing Organization Address [facility] de Phone Number [facility] [address] [place] [address] * PROTHROMBIN TIME (PT) (INR), BLOOD (07/24/2017 12:44 PM EST) INR 1.0 [facility] Comment: Reference Range ? 0.9-1.1 Moderate-intensity Warfarin Therapy 2.0-3.0 Higher-intensity Warfarin Therapy ?? 3.0-4.0 PT 10.3 9.0 - 11.5 sec [facility] Comment: For more information on this test, go to: http://education.Geothermal Engineering/faq/SSX957 07/24/2017 12:4 4 PM EST 07/24/2017 2:43 PM EST Narrative Resulting Agency Comment [id number] Tomasz Robbins MD LAB SAME DAY RESULT Final R esult Performing Organization Address [facility] de Phone Number [facility] [address] [place] [address] * COMPREHENSIVE METABOLIC PANEL WITH GFR (07/24/2017 12:44 PM EST) Glucose 92 65 - 99 mg/dL [facility] Comment:Fasting reference in terval Urea Nitrogen Blood (BUN) 13 7 - 25 mg/dL [facility] Creatinine 0.93 0.60 - 1.35 mg/dL [facility] GFR 97 > OR = 60 mL/min/1 .73m2 [facility] GFR () 113 > OR = 60 mL/min/1 .73m2 [facility] BUN/Creatinine Ratio NOT APPLICABLE 6 - 22 (calc) [facility] Sodium 140 135 - 146 mmol/L [facility] Potassium 4.1 3.5 - 5.3 mmol/L [facility] Chloride 105 98 - 110 mmol/L [facility] Carbon dioxide 25 20 - 31 mmol/L [facility] Calcium 10.0 8.6 - 10.3 mg/dL [facility] Protein Total (Serum) 7.6 6.1 - 8.1 g/dL [facility] Albumin 4.9 3.6 - 5.1 g/dL [facility] Globulin 2.7 1.9 - 3.7 g/dL (calc) [facility] Albumin/Globuli n 1.8 1.0 - 2.5 (calc) [facility] Bilirubin Total 0.6 0.2 - 1.2 mg/dL [facility] Alkaline phosphatase 78 40 - 115 U/L [facility] AST (SGOT) 10 10 - 40 U/L [facility] ALT (SGPT) 11 9 - 46 U/L [facility] 07/24/2017 12:4 4 PM EST 07/24/2017 2:43 PM EST Narrative [facility] - 07/24/2017 4:43 PM EST Please note that this estimated GFR [...] needs for GFR calculation. Resulting Agency Comment [id number] us Tomasz Robbins MD LABORATORY Final Resul t [facility] [address] [place] [address] * (ABNORMAL) CBC INCLUDES DIFFERENTIAL AND PLATELET COUNT (07/24/2017 12:44 PM EST) WBC 13.4(H) 3.8 - 10.8 Thousand/u L [facility] RBC 5.23 4.20 - 5.80 Million/uL [facility] Hemoglobin 16.9 13.2 - 17.1 g/dL [facility] Hematocrit 47.8 38.5 - 50.0 % [facility] MCV 91.3 80.0 - 100.0 fL [facility] MCH 32.2 27.0 - 33.0 pg [facility] MCHC 35.3 32.0 - 36.0 g/dL [facility] RDW 12.9 11.0 - 15.0 % [facility] PLT 237 140 - 400 Thousand/u L [facility] MPV 8.1 7.5 - 12.5 fL [facility] Neutrophils # 9085(H) 1500 - 7800 cells/uL [facility] Lymphocytes # 3310 850 - 3900 cells/uL [facility] Monocytes # 831 200 - 950 cells/uL [facility] Eosinophils # 121 15 - 500 cells/uL [facility] Basophils # 54 0 - 200 cells/uL [facility] Neutrophils % 67.8 % [facility] Lymphocytes % 24.7 % [facility] Monocytes % 6.2 % [facility] Eosinophils % 0.9 % [facility] Basophils % 0.4 % [facility] 07/24/2017 12:4 4 PM EST 07/24/2017 2:43 PM EST Narrative Resulting Agency Comment [id number] us Tomasz Robbins MD LAB SAME DAY RESULT Final R esult [facility] [address] [place] [address] documented in this encounter Visit Diagnoses Diagnosis Hematuria, unspecified type documented in this encounter Additional Health Concerns Infection Onset Date Last Indicated Resolved Time COVID-19 Confirmed 07/08/2023 07/08/2023 documented as of this encounter Care Teams Marine Superintendent Relationship Specialty Start Date End Date Abel Mclaughlin [address] [place] [phone] PCP - General Family Medicine 04/24/17 documented as of this encounter
--- OUTSIDE RECORDS SUMMARY | 2024-11-04 13:54 | XMS_ITS | Encounter Summary ---
Author Organization [facility] Address [address] [place] [address] Care Team Providers Care National Flatbed Truck Driver Name Role Phone Abel Mclaughlin Primary Care Provider [phone] Encounter Details Date Type Department Care Team ([facility] st Contact Info) Description 04/24/2017 Orders Only [facility] Urology [address] [facility] [address] [place] [address] Татьяна Reyna LPN [address] [place] [address] Social History Tobacco Use Types Packs/Day Years [...] as of this encounter Progress Notes * Татьяна Reyna - 04/27/2017 7:43 AM EDT . documented in this encounter Plan of Treatment Not on file documented as of this encounter Procedures * Due to [place] state law, this organization might not be sharing negative HIV tests. Procedure Name Priority Date/Time Associated Diagnosis Comments CULTURE, URINE, ROUTINE Routine 04/24/2017 11:31 AM EDT Incomplete bladder emptying URINALYSIS, COMPLETE INCLUDES DIPSTICK AND MICROSCOPIC Routine 04/24/2017 11:31 AM EDT Incomplete bladder emptying documented in this encounter Results * Due to [place] state law, this organization might not be sharing negative HIV tests. * (ABNORMAL) URINALYSIS, COMPLETE INCLUDES DIPSTICK AND MICROSCOPIC (04/24/2017 11:31 AM EDT) Color (Urine) YELLOW YELLOW [facility] Appearance (Urine) CLOUDY(A) CLEAR [facility] Specific gravity (Urine) 1.024 1.001 - 1.035 [facility] pH (Urine) 5.5 5.0 - 8.0 [facility] Glucose (Urine) [...] NONE SEEN NONE SEEN /LPF [facility] 04/24/2017 11:3 1 AM EDT 04/24/2017 5:27 PM EDT Narrative Resulting Agency Comment [id number] us James Brand MD LAB SAME DAY RESULT Final Resul t Performing Organization Address City/State/[facility] de Phone Number [facility] [address] [place] [address] * CULTURE, URINE, ROUTINE (04/24/2017 11:31 AM EDT) Bacteria culture (Urine) SEE NOTE [facility] Comment: ??CULTURE, URINE, ROUTINE ??MICRO NUMBER: ?[id number] ??TEST STATUS: ? FINAL ??SPECIMEN SOURCE: ?? URINE ??SPECIMEN QUALITY: ??ADEQUATE ??RESULT: ?No Growth 04/24/2017 11:3 1 AM EDT 04/24/2017 5:27 PM EDT Narrative Resulting Agency Comment [id number] us James Brand MD LABORATORY Final Result Performing Organization Address City/State/[facility] Co de Phone Number [facility] [address] [place] [address] documented in this encounter Visit Diagnoses Diagnosis Incomplete bladder emptying documented in this encounter Additional Health Concerns Infection Onset Date Last Indicated Resolved Time COVID-19 Confirmed 07/08/2023 07/08/2023 documented as of this encounter Care Teams National Flatbed Truck Driver Relationship Specialty Start Date End Date Abel Mclaughlin [address] [place] [phone] PCP - General Family Medicine 04/24/17 documented as of this encounter
--- OUTSIDE RECORDS SUMMARY | 2024-11-04 13:54 | XMS_ITS | Encounter Summary ---
Author Organization [facility] Address [address] [place] [address] Care Team Providers Care Communications Strategist Name Role Phone Abel Mclaughlin Primary Care Provider [phone] Encounter Details Date Type Department Care Team (Late st Contact Info) Description 07/29/2019 Orders Only [facility] Hematology/Oncology 1 [facility] [address] [place] [phone] Albert Noble MD [address] [place] [address] Social History Tobacco Use Types Packs/Day Years [...] of this encounter Procedures * Due to [place] state law, this organization might not be sharing negative HIV tests. Procedure Name Priority Date/Time Associated Diagnosis Comments ACTIVATED PARTIAL THROMBOPLASTIN TIME (APTT), PLASMA Routine 07/29/2019 1:05 PM EST Asymptomatic microscopic hematuria PROTHROMBIN TIME (PT) (INR), BLOOD Routine 07/29/2019 1:05 PM EST Asymptomatic microscopic hematuria VON WILLEBRAND FACTOR ANTIGEN Routine 07/29/2019 1:05 PM EST Asymptomatic microscopic hematuria RISTOCETIN COFACTOR Routine 07/29/2019 1 :05 PM EST Asymptomatic microscopic hematuria VENIPUNCTURE Routine 07/29/2019 1:05 PM EST Asymptomatic microscopic hematuria CBC INCLUDES DIFFERENTIAL AND PLATELET COUNT Routine 07/29/2019 1:05 PM EST Asymptomatic microscopic hematuria documented in this encounter Results * Due to [place] state law, this organization might not be sharing negative HIV tests. * VON WILLEBRAND FACTOR ANTIGEN (07/29/2019 1:05 PM EST) von Willebrand factor Ag actual/Normal (Platelet Poor Plasma) 194 50 - 217 % [facility] 07/29/2019 1:05 PM EST 07/29/2019 7:41 PM EST Narrative Resulting Agency Comment [id number] Albert Noble MD LABORATORY Final Result Performing Organization Address [facility] Co de Phone Number [facility] [address] [place] [address] * RISTOCETIN COFACTOR (07/29/2019 1:05 PM EST) von Willebrand factor.ristocet in cofactor activity actual/Normal (Platelet Poor Plasma) 175 42 - 200 % NORMAL [facility] 07/29/2019 1:05 PM EST 07/29/2019 7:41 PM EST Narrative Resulting Agency Comment [id number] us Albert Noble MD LABORATORY Final Result Performing Organization Address [facility] Co de Phone Number [facility] [address] [place] [address] * ACTIVATED PARTIAL THROMBOPLASTIN TIME (APTT), PLASMA (07/29/2019 1:05 PM EST) Thromboplastin Time 30 22 - 34 sec [facility] Comment: This test has not been validated for monitoring unfractionated heparin therapy. For testing that is validated for this type of therapy, please refer to the Heparin Anti-Xa assay (test code 36438). For additional information, please refer to http://education.OQO/faq/GKE167 (This link is being provided for informational/educational purposes only.) 07/29/2019 1:05 PM EST 07/29/2019 7:41 PM EST Narrative Resulting Agency Comment [id number] Albert Noble MD LAB SAME DAY RESULT Final Resul t Performing Organization Address [facility] de Phone Number [facility] [address] [place] [address] * PROTHROMBIN TIME (PT) (INR), BLOOD (07/29/2019 1:05 PM EST) INR 1.0 [facility] Comment: Reference Range ? 0.9-1.1 Moderate-intensity Warfarin Therapy 2.0-3.0 Higher-intensity Warfarin Therapy ?? 3.0-4.0 PT 10.5 9.0 - 11.5 sec [facility] Comment: For more information on this test, go to: http://Tappr.Market Force Information/faq/QZN772 07/29/2019 1:05 PM EST 07/29/2019 7:41 PM EST Narrative Resulting Agency Comment [id number] Albert Noble MD LAB SAME DAY RESULT Final Resul t Performing Organization Address [facility] de Phone Number [facility] [address] [place] [address] * CBC INCLUDES DIFFERENTIAL AND PLATELET COUNT (07/29/2019 1:05 PM EST) WBC 9.9 3.8 - 10.8 Thousand/u L [facility] RBC 5.31 4.20 - 5.80 Million/uL [facility] Hemoglobin 16.6 13.2 - 17.1 g/dL [facility] Hematocrit 47.5 38.5 - 50.0 % [facility] MCV 89.5 80.0 - 100.0 fL [facility] MCH 31.3 27.0 - 33.0 pg [facility] MCHC 34.9 32.0 - 36.0 g/dL [facility] RDW 12.7 11.0 - 15.0 % [facility] PLT 223 140 - 400 Thousand/u L [facility] MPV 10.4 7.5 - 12.5 fL [facility] Neutrophils # 5930 1500 - 7800 cells/uL [facility] Lymphocytes # 3326 850 - 3900 cells/uL [facility] Monocytes # 495 200 - 950 cells/uL [facility] Eosinophils # 109 15 - 500 cells/uL [facility] Basophils # 40 0 - 200 cells/uL [facility] Neutrophils % 59.9 % [facility] Lymphocytes % 33.6 % [facility] Monocytes % 5.0 % [facility] Eosinophils % 1.1 % [facility] Basophils % 0.4 % [facility] 07/29/2019 1:05 PM EST 07/29/2019 7:41 PM EST Narrative Resulting Agency Comment [id number] us Albert Noble MD LAB SAME DAY RESULT Final Resul t Performing Organization Address [facility] de Phone Number [facility] [address] [place] [address] * COAG FACTOR VIII ACTIVITY (07/29/2019 1:05 PM EST) Coagulation factor VIII activity actual/Normal (Platelet Poor Plasma) 126 50 - 180 % normal [facility] Comment: For additional information, please refer to http://education.Market Force Information/faq/HPS054 (This link is being provided for informational/ educational purposes only.) 07/29/2019 1:05 PM EST 07/29/2019 7:41 PM EST Narrative Resulting Agency Comment [id number] us Albert Noble MD LABORATORY Final Result Performing Organization Address City/[facility] Co de Phone Number [facility] [address] [place] [address] documented in this encounter Visit Diagnoses Diagnosis Asymptomatic microscopic hematuria documented in this encounter Additional Health Concerns Infection Onset Date Last Indicated Resolved Time COVID-19 Confirmed 07/08/2023 07/08/2023 documented as of this encounter Care Teams Communications Strategist Relationship Specialty Start Date End Date Abel Mclaughlin [address] [place] [phone] PCP - General Family Medicine 04/24/17 documented as of this encounter
--- OUTSIDE RECORDS SUMMARY | 2024-11-04 13:54 | XMS_ITS | Encounter Summary ---
Author Organization [facility] Address [address] [place] [address] Care Team Providers Care Jukebox Operator Name Role Phone Shawna Garcia MD Primary Care Provider [phone] Mukul Jeong Primary Care Provider [phone] Abel Mclaughlin Primary Care Provider [phone] Encounter Details Date Type Department Care Team (Late st Contact Info) Description 02/21/2008 Orders Only [facility] Urology [address] [facility] [address] [place] [address] Viet Sutherland MD [facility] [address] [facility] [address] [place] [address] Social History Tobacco Use Types Packs/Day Years [...] documented as of this encounter Care Teams Jukebox Operator Relationship Specialty Start Date End Date Shawna Garcia MD [facility] [address] [place] [address] [address] [place] [address] PCP - General 05/14/07 06/30/11 Mukul Jeong [address] [phone] PCP - General Family Medicine 07/01/11 04/23/17 Abel Mclaughlin [address] [place] [phone] PCP - General Family Medicine 04/24/17 documented as of this encounter
--- OUTSIDE RECORDS SUMMARY | 2024-11-04 13:54 | XMS_ITS | Encounter Summary ---
Author Organization [facility] Address [address] [place] [address] Care Team Providers Care Thermometer Production Worker Name Role Phone Abel Mclaughlin Primary Care Provider [phone] Encounter Details Date Type Department Care Team ([facility] st Contact Info) Description 06/05/[address] [facility] Urology [address] [address] James Brand MD [address] [place] [address] Social History Tobacco Use Types Packs/Day Years [...] this encounter Procedures * Due to [place] [employer] law, this organization might not be sharing negative HIV tests. Procedure Name Priority Date/Time Associated Diagnosis Comments CULTURE, URINE, ROUTINE Routine 06/05/2017 3:02 PM EST Hematuria syndrome Strangury URINALYSIS, COMPLETE INCLUDES DIPSTICK AND MICROSCOPIC Routine 06/05/2017 3:02 PM EST Hematuria syndrome Strangury documented in this encounter Results * Due to [place] [employer] law, this organization might not be sharing negative HIV tests. * CULTURE, URINE, ROUTINE (06/05/2017 3:02 PM EST) Bacteria culture (Urine) SEE NOTE [facility] Comment: ??CULTURE, URINE, ROUTINE ??MICRO NUMBER: ?[id number] ??TEST STATUS: ? FINAL ??SPECIMEN SOURCE: ?? URINE ??SPECIMEN QUALITY: ??ADEQUATE ??RESULT: ?No Growth 06/05/2017 3:02 PM EST 06/05/2017 8:45 PM EST Narrative Resulting Agency Comment [id number] James Brand MD LABORATORY Final Result Performing Organization Address [facility] de Phone Number [facility] [address] [place] [address] * (ABNORMAL) URINALYSIS, COMPLETE INCLUDES DIPSTICK AND MICROSCOPIC (06/05/2017 3:02 PM EST) Color (Urine) YELLOW YELLOW [facility] [...] 5 /HPF [facility] RBC (Urine Sed) 10-20(A) < OR = 2 /HPF [facility] Epithelial cells.squamous (Urine sed) NONE SEEN < OR = 5 /HPF [facility] Bacteria (Urine) NONE SEEN NONE SEEN /HPF [facility] Hyaline casts (Urine sed) NONE SEEN NONE SEEN /LPF [facility] 06/05/2017 3:02 PM EST 06/05/2017 8:45 PM EST Narrative Resulting Agency Comment [id number] James Brand MD LAB SAME DAY RESULT Final Resul t Performing Organization Address [facility] de Phone Number [facility] [address] [place] [address] documented in this encounter Visit Diagnoses Diagnosis Hematuria syndrome Hematuria, unspecified Strangury Dysuria documented in this encounter Additional Health Concerns Infection Onset Date Last Indicated Resolved Time COVID-19 Confirmed 07/08/2023 07/08/2023 documented as of this encounter Care Teams Thermometer Production Worker Relationship Specialty Start Date End Date Abel Mclaughlin [address] [place] [phone] PCP - General Family Medicine 04/24/17 documented as of this encounter
--- OUTSIDE RECORDS SUMMARY | 2024-11-04 13:54 | XMS_ITS | Clinical Summary ---
Author Organization [facility] Address [address] [place] [address] Care Team Providers Care Lumber Piler Operator Name Role Phone Abel Mclaughlin Primary Care Provider [phone] Allergies Active Allergy Reactions Criticality Noted Date Comments Oxycodone-Acetaminophen Nausea/GI Upset Medium 011 DENIES Medications Oxycodone-Acetam inophen 10-325 MG TabIndications:P rostatitis, unspecified prostatitis type TAKE 1 TO 2 TABLETS BY MOUTH EVERY 6 HOURS 0 03/07/2017 Active FentaNYL 50 MCG/HR PATCH 72 HRIndications:Pr ostatitis, unspecified prostatitis type APPLY 1 PATCH TO THE SKIN EVERY 72 HOURS 0 03/07/2017 Active Testosterone (ANDROGEL PUMP) 20.25 MG/ACT (1.62%) GelIndications:P rostatitis, unspecified prostatitis type APPLY 1 PUMP TO EACH ARM ONCE DAILY 5 03/08/2017 Active TraZODone HCl 150 MG TabIndications:P rostatitis, unspecified prostatitis type TAKE 1 TABLET AT BEDTIME NEEDED FOR SLEEP 3 11/22/2016 Active Gabapentin 600 MG Tab TAKE 1 TABLET BY MOUTH THREE TIMES A DAY 5 08/19/2017 Active RaNITidine HCl 150 MG Tab TAKE ONE CAPSULE BY MOUTH TWICE A DAY 1 07/31/2017 Active Cholecalciferol (VITAMIN D3) 1000 UNITS Tab TAKE 1 TABLET BY MOUTH DAILY 5 07/16/2017 Active Ibuprofen (ADVIL) 200 MG Cap 1 CAPSULE EVERY 4 TO 6 HOURS NEEDED Active Atorvastatin Calcium (LIPITOR) 40 MG tablet Take 40 mg by mouth 1 (one) time each day. 04/27/2024 Active Cimetidine (TAGAMET) 200 MG tablet Take 200 mg by mouth 2 (two) times a day with meals. 05/08/2024 Active tiZANidine HCl (ZANAFLEX) 2 MG capsule Take one capsule (2 mg total) by mouth 3 (three) times a day if needed for muscle spasms (tightness). 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 UTI (urinary tract infection) 02/21/2008 Overview (06/22/2015): Immunizations Name Administration Dates Next Due COVID-19, mRNA (Pfizer Pre F all 2022) Monovalent, 30 mcg/0.3 ml 04/19/2021,12/13/2020 Influenza,injectable,quad,Prsrv Fr 09/22/2019 influenza,seasonal,trivalent ,PF (Fluzone, Fluarix, Flulaval) 04/20/2024 Social History Tobacco Use Types Packs/Day Years Used Date Smoking Tobacco: Every Day Cigarettes 2 20 Smokeless Tobacco: Never Tobacco Cessation:Ready to Q uit: Not Asked; Counseling Given: Not Answered Alcohol Use Standard Drinks/Week Comments Not Asked 0 (1 standard drink = 0.6 oz pur e alcohol) Intimate Partner Violence Answer Date R ecorded Fear of Current or Ex-Partner Not on file Emotionally Abused Not on file 03/16/2023 Physically Abused Not on file 03/16/2023 Sexually Abused Not on file 03/16/2023 Feel Safe at Home Not on file 03/16/2023 Sex and Gender Information Value Date Recorded Sex Assigned at Not on file Legal Sex Male 8:39 PM EDT Gender Identity Not on file Sexual Orientation Not on file Last Filed Vital Signs Vital Sign Reading Time Taken Comments Blood Pressure 128/86 05/23/2024 4:23 PM EDT Pulse 97 05/23/2024 4:23 PM EDT Temperature 36.4 ??C (97.6 ??F) 05/23/2024 4:23 PM ED T Respiratory Rate 18 05/23/2024 4:23 PM EDT Oxygen Saturation 96% 05/23/2024 4:23 PM EDT Inhaled Oxygen Concentration - - Weight 79.6 kg (175 lb 6.4 oz) 09/22/2019 1:22 P M EST Height 172.7 cm (5' 8 ) 07/21/2019 12:43 PM EST Body Mass Index 26.67 07/21/2019 12:43 PM EST Plan of Treatment Health Maintenance Due Date Last Done Comments Hepatitis C Screening 1969 DTaP/Tdap/Td (1 - Tdap) 09/27/1987 Hep B (1 of 3 - 19+ 3-dose series) 1988 Pneumococcal 50+ years (1 of 2 - PCV) 1988 Colon Cancer Screening 2014 CT Lung Screening 09/27/2019 Zoster (Shingrix) (1 of 2) 09/27/2019 COVID-19 Vaccine ( - season) 2024 04/19/2021, 12/13/2020 EKG Discontinued 09/05/2010, 08/27, 08/30/2010, Additional history exists Chest Imaging Discontinued 06/23/2014, 08/30/2010 Influenza Completed 04/20/2024, 09/22/2019 PSA Discontinued 04/26/2024, 10/2023, 05/14/2012, Additional history exists HPV Vaccine Aged Out No longer eligi ble based on patient's age to complete this topic Hep A Aged Out No longer eligi ble based on patient's age to complete this topic Hib Aged Out No longer eligi ble based on patient's age to complete this topic Meningococcal ACWY Aged Out No longer eligible based on patient's age to complete this topic Procedures * Due to [place] state law, this organization might not be sharing negative HIV tests. Procedure Name Priority Date/Time Associated Diagnosis Comments PROSTATE SPECIFIC ANTIGEN (PSA) TOTAL, SERUM Routine 05/14/2012 4:06 PM EDT Prostatitis EKG Routine 09/05/2010 2:59 PM EST CXR 2 VIEW AP/PA AND LAT Routine 08/30/2010 4:16 PM EST from Last 3 Months or Most Recently Relevant to Health Maintenance Results * Due to [place] state law, this organization might not be sharing negative HIV tests. * PROSTATE SPECIFIC ANTIGEN (PSA) TOTAL, SERUM (05/14/2012 4:06 PM EDT) PSA 0.2 < OR = 4.0 ng/mL [facility] Comment: {PSA, TOTAL {[id number]) This test was performed using the Siemens chemiluminescent method. Values obtained from different assay methods cannot be used interchangeably. PSA levels, regardless of value, should not be interpreted as absolute evidence of the presence or absence of disease. 05/14/2012 4:06 PM EDT 05/14/2012 10:30 PM EDT Narrative Resulting Agency Comment [id number] us James Brand MD LABORATORY Final Result [facility] [address] [place] [address] * (ABNORMAL) EKG (09/05/2010 2:59 PM EST) VENTRICULAR RATE 58 BPM MUS E EKG SYSTEM ATRIAL RATE 58 BPM MUSE EKG SYSTEM P-R INTERVAL 120 ms MUSE EK G SYSTEM QRS DURATION 144 ms MUSE EK G SYSTEM QT 420 ms MUSE EKG SYSTEM QTC 412 ms MUSE EKG SYSTEM P AXIS 2 degrees MUSE EKG SYSTEM R AXIS 82 degrees MUSE EKG SYSTEM T AXIS 47 degrees MUSE EKG SYSTEM EKG INTERPRETATION Sinus bradycardia Norma-Parkinso n-White Abnormal ECG(A) MUSE EKG SYSTEM 09/05/2010 2:59 PM EST us Unknown Provider CARDIOVASCULAR-NO INBASKET RTG Final Result MUSE EKG SYSTEM * CXR 2 VIEW AP/PA AND LAT (08/30/2010 4:16 PM EST) RADIOLOGY REPORT Chest, two views: There are no comparison studies. The lungs are clear. ??The heart is normal in size. ??Mediastinum and hilar structures are unremarkable. Impression: Normal study. [facility] RAD Anatomical Region Laterality Modality Other 08/30/2010 4:16 PM EST Narrative 08/30/2010 4:20 PM EST Reason for Study/History: There are no comparison studies. TEST(S) PROCESSED BY [facility] XRAY Ritika Plaza MD IMAGING-[facility] Final Result from Last 3 Months or Most Recently Relevant to Health Maintenance Additional Health Concerns Infection Onset Date Last Indicated COVID-19 Confirmed 07/08/2023 07/08/2023 Insurance MEDICAID MEDICARE [employer]CO [employer] Care Teams Lumber Piler Operator Relationship Specialty Start Date End Date Abel Mclaughlin [address] [place] [phone] PCP - General Family Medicine 04/24/17
--- OUTSIDE RECORDS SUMMARY | 2024-11-04 13:54 | XMS_ITS | Encounter Summary ---
Author Organization [facility] Address [address] [place] [address] Care Team Providers Care Operators School Manager Name Role Phone Arnoldo Abel Stern Primary Care Provider [phone] Encounter Details Date Type Department Care Team ([facility] st Contact Info) Description 06/10/2017 Orders Only [facility] Infectious Disease [address] [facility] [address] [place] [address] Tomasz Robbins MD [address] [place] [address] Social History Tobacco Use Types Packs/Day Years [...] Progress Notes * Tomasz Robbins MD - 08/19/2017 7:16 PM EST The lab data was reviewed with the patient during a telephone conversation. Please see telephone message. * Tomasz Robbins MD - 06/17/2017 7:40 PM EST The lab data was reviewed with the patient during a telephone conversation. Please see telephone message. documented in this encounter Plan of Treatment Not on file documented as of this encounter Procedures * Due to [place] [employer] law, this organization might not be sharing negative HIV tests. Procedure Name Priority Date/Time Associated Diagnosis Comments ACID-FAST SMEAR AND CULTURE, MYCOBACTERIUM Routine 06/10/2017 3:08 PM EST CYTOLOGY URINE Routine 06/10/2017 12:11 PM EST Hematuria, unspecified type OVA AND PARASITES WITH GIARDIA ANTIGEN Routine 06/10/2017 12:11 PM EST Hematuria, unspecified type ACID-FAST SMEAR AND CULTURE, MYCOBACTERIUM Routine 06/10/2017 12:11 PM EST documented in this encounter Results * Due to [place] [employer] law, this organization might not be sharing negative HIV tests. * ACID-FAST SMEAR AND CULTURE, MYCOBACTERIUM (06/10/2017 3:08 PM EST) Microscopic observation SEE NOTE [facility] Comment: ??MYCOBACTERIA, CULTURE, WITH FLUOROCHROME SMEAR ??MICRO NUMBER: ?[id number] ??TEST STATUS: ? FINAL ??SPECIMEN SOURCE: ?? URINE ??SPECIMEN QUALITY: ??ADEQUATE ??SMEAR: ? No acid fast bacilli seen. ??RESULT: ?No Mycobacterium species isolated after ? 8 weeks incubation. 06/10/2017 3:08 PM EST 06/10/2017 9:46 PM EST us Tomasz Robbins MD LABORATORY Final Resul t [facility] [address] [place] [address] * ACID-FAST SMEAR AND CULTURE, MYCOBACTERIUM (06/10/2017 12:11 PM EST) Microscopic observation SEE NOTE [facility] Comment: ??MYCOBACTERIA, CULTURE, WITH FLUOROCHROME SMEAR ??MICRO NUMBER: ?[id number] ??TEST STATUS: ? FINAL ??SPECIMEN SOURCE: ?? NOT GIVEN ??SPECIMEN QUALITY: ??ADEQUATE ??SMEAR: ? No acid fast bacilli seen. ??RESULT: ?No Mycobacterium species isolated after ? 8 weeks incubation. 06/10/2017 12:1 1 PM EST 06/10/2017 5:19 PM EST us Tomasz Robbins MD LABORATORY Final Resul t Performing Organization Address City/State/[facility] Co de Phone Number [facility] [address] [place] [address] * OVA AND PARASITES WITH GIARDIA ANTIGEN (06/10/2017 12:11 PM EST) Giardia lamblia Ag (Stool) SEE NOTE [facility] Comment: ??GIARDIA AG, EIA, STOOL ??MICRO NUMBER: ?[id number] ??TEST STATUS: ? FINAL ??SPECIMEN SOURCE: ?? NOT GIVEN ??SPECIMEN QUALITY: ??ADEQUATE ??RESULT 1: ?Not Detected ? NOTE: Due to intermittent shedding, one negative ? sample does not necessarily rule out the presence ? of a parasitic infection. Ova+Parasites identified (Stool) SEE NOTE [facility] Comment: ??OVA AND PARASITES, CONC AND PERM SMEAR ??MICRO NUMBER: ?[id number] ??TEST STATUS: ? FINAL ??SPECIMEN SOURCE: ?? NOT GIVEN ??SPECIMEN QUALITY: ??ADEQUATE ??CONCENTRATION 1: ?? No ova or parasites seen ??TRICHROME 1: ? No ova or parasites seen ? Routine Ova and Parasite exam may not detect some ? parasites that occasionally cause diarrheal ? illness. Test code(s) 70670 (Cryptosporidium Ag., ? DFA) and/or 22430 (Cyclospora and Isospora Exam) ? may be ordered to detect these parasites. One ? negative sample does not necessarily rule out ? the presence of a parasitic infection. Urine specimen (specimen) 06/10/2017 12:11 PM EST 06/10/2017 5:19 PM EST Narrative Resulting Agency Comment [id number] us Tomasz Robbins MD LABORATORY Final Resul t Performing Organization Address City/State/[facility] Co de Phone Number [facility] [address] [place] [phone] * CYTOLOGY URINE (06/10/2017 12:11 PM EST) Screener MXD, CT (ASCP) CT screening location: [place] [address] [facility] Pathologist Name Michaela Lora M.D., Ph.D., Board Certified in Anatomic and Clinical Pathology and Cytopathology (electronic signature) Consulting Pathologist [facility] [address] [place] [address] [facility] Specimen source Urine VOIDED Q [facility] Procedure Cytology [facility] Gross Observation SEE NOTE [facility] Comment: The name on the container is in agreement with the requisition. ??20 mL of cloudy light yellow fluid, received in an unknown fixative and processed by the Thinprep method. ??(AG) ?? 06/11/17 ??Gross exam(s) performed at: ??[facility] ??[address] [place] [phone] ??Education And Outreach Coordinator: NAIF PEREZ MD FINAL DIAGNOSIS Negative for malignant cells. [facility] 06/10/2017 12:1 1 PM EST 06/11/2017 12:18 AM EST Narrative Resulting Agency Comment [id number] us Tomasz Robbins MD PATHOLOGY-INTERFACED Final Result Performing Organization Address City/State/[facility] Co de Phone Number [facility] [address] [place] [address] documented in this encounter Visit Diagnoses Diagnosis Hematuria, unspecified type documented in this encounter Additional Health Concerns Infection Onset Date Last Indicated Resolved Time COVID-19 Confirmed 07/08/2023 07/08/2023 documented as of this encounter Care Teams Operators School Manager Relationship Specialty Start Date End Date Abel Mclaughlin [address] [place] [phone] PCP - General Family Medicine 04/24/17 documented as of this encounter
--- OUTSIDE RECORDS SUMMARY | 2024-11-04 13:54 | XMS_ITS | Encounter Summary ---
Author Organization [facility] Address [address] [place] [address] Care Team Providers Care Adult Basic Education Manager Name Role Phone Shawna Garcia MD Primary Care Provider [phone] Mukul Jeong Primary Care Provider [phone] Abel Mclaughlin Primary Care Provider [phone] Encounter Details Date Type Department Care Team (Late st Contact Info) Description 09/16/[address] [facility] Urology [address] [facility] [address] [place] [address] James Brand MD [address] [place] [address] Social History Tobacco Use Types Packs/Day Years [...] this encounter Procedures * Due to [place] [employer] law, this organization might not be sharing negative HIV tests. Procedure Name Priority Date/Time Associated Diagnosis Comments CULTURE, URINE Routine 09/16/2010 URINALYSIS,C&S IF INDICATED Routine 09/16/2010 Dysuria documented in this encounter Results * Due to [place] state law, this organization might not be sharing negative HIV tests. * CULTURE, URINE (09/16/2010) URINE CULTURE CLEAN VOID SEE TEXT [facility] Comment: SOURCE: URINE NO GROWTH 09/16/2010 09/16/2010 6:3 4 PM EST James Brand MD LABORATORY Final Result Performing Organization Address [facility] de Phone Number [facility] [address] [place] [address] * (ABNORMAL) URINALYSIS,C&S IF INDICATED (09/16/2010) COLOR (URINE) YELLOW YELLOW [facility] APPEARANCE (URINE) CLOUDY(A) CLEAR [facility] SPECIFIC GRAVITY 1.019 1.001 - 1.035 [facility] PH (URINE) 6.0 5.0 - 8.0 [facility] PROTEIN (URINE) 1+(A) NEG [facility] GLUCOSE (URINE) NEG NEG [facility] Ketones (Urine) NEG NEG [facility] BILIRUBIN (URINE) NEG NEG [facility] BLOOD (URINE) 3+(A) NEG [facility] WBC (URINE) 2+(A) NEG [facility] NITRITE (URINE) NEG NEG [facility] WBC (URINE) 10-20(A) 0-4/HPF [facility] RBC (Urine Sed) 20-40(A) 0-3/HPF [facility] EPITHELIAL CELLS.SQUAMOUS (URINE SED) 0 0-5/HPF [facility] EPITHELIAL CELLS.TRANSITI ONAL (URINE SED) 0 0-5/HPF [facility] EPITHELIAL CELLS.RENAL (URINE SED) 0 0-3/HPF [facility] BACTERIA (URINE) FEW(A) NONE SEEN [facility] 09/16/2010 09/16/2010 6:3 4 PM EST James Brand MD LABORATORY Final Result Performing Organization Address [facility] Co de Phone Number [facility] [address] [place] [address] documented in this encounter Visit Diagnoses Diagnosis Dysuria documented in this encounter Additional Health Concerns Infection Onset Date Last Indicated Resolved Time COVID-19 Confirmed 07/08/2023 07/08/2023 documented as of this encounter Care Teams Adult Basic Education Manager Relationship Specialty Start Date End Date Shawna Garcia MD [facility] [address] [place] [address] [address] [place] [phone] PCP - General 05/14/07 06/30/11 Mukul Jeong [address] [phone] PCP - General Family Medicine 07/01/11 04/23/17 Abel Mclaughlin [address] [place] [phone] PCP - General Family Medicine 04/24/17 documented as of this encounter
--- OUTSIDE RECORDS SUMMARY | 2024-11-04 13:54 | XMS_ITS | Encounter Summary ---
Author Organization [facility] Address [address] [place] [address] Care Team Providers Care Pattern Drum Maker Name Role Phone Mukul Jeong Primary Care Provider [phone] Abel Mclaughlin Primary Care Provider [phone] Encounter Details Date Type Department Care Team ([facility] st Contact Info) Description 05/14/2012 Orders Only [facility] Urology [address] [facility] [address] [place] [address] James Brand MD [address] [place] [address] Social History Tobacco Use Types Packs/Day Years [...] this encounter Procedures * Due to [place] [employer] law, this organization might not be sharing negative HIV tests. Procedure Name Priority Date/Time Associated Diagnosis Comments ERYTHROCYTE SEDIMENTATION RATE (ESR) Routine 05/14/2012 4:06 PM EDT Prostatitis PROSTATE SPECIFIC ANTIGEN (PSA) TOTAL, SERUM Routine 05/14/2012 4:06 PM EDT Prostatitis documented in this encounter Results * Due to [place] [employer] law, this organization might not be sharing negative HIV tests. * PROSTATE SPECIFIC ANTIGEN (PSA) TOTAL, SERUM (05/14/2012 4:06 PM EDT) PSA 0.2 < OR = 4.0 ng/mL [facility] Comment: {PSA, TOTAL {[id number]) This test was performed using the Siemens chemiluminescent method. Values obtained from different assay methods cannot be used interchangeably. PSA levels, regardless of value, should not be interpreted as absolute evidence of the presence or absence of disease. 05/14/2012 4:06 PM EDT 05/14/2012 10:30 PM EDT Narrative Resulting Agency Comment [id number] James Brand MD LABORATORY Final Result Performing Organization Address [facility] Co de Phone Number [facility] [address] [place] [phone] * ERYTHROCYTE SEDIMENTATION RATE (ESR), WESTERGREN (05/14/2012 4:06 PM EDT) Sedimentation Rate [place] (ESR) 4 < OR = 15 mm/h [facility] Comment:{SED RATE BY MODIFIE D WESTERGREN {[id number]) 05/14/2012 4:06 PM EDT 05/14/2012 10:30 PM EDT Narrative Resulting Agency Comment [id number] James Brand MD LAB SAME DAY RESULT Final Resul t Performing Organization Address City/[facility] Co de Phone Number [facility] [address] [place] [address] documented in this encounter Visit Diagnoses Diagnosis Prostatitis Prostatitis, unspecified documented in this encounter Additional Health Concerns Infection Onset Date Last Indicated Resolved Time COVID-19 Confirmed 07/08/2023 07/08/2023 documented as of this encounter Care Teams Pattern Drum Maker Relationship Specialty Start Date End Date Mukul Jeong [address] [phone] PCP - General Family Medicine 07/01/11 04/23/17 Abel Mclaughlin [address] [place] [phone] PCP - General Family Medicine 04/24/17 documented as of this encounter
--- OUTSIDE RECORDS SUMMARY | 2024-11-04 13:54 | XMS_ITS | Encounter Summary ---
Author Organization [facility] Address [address] [place] [address] Care Team Providers Care Plasma Processing Centrifuge Operator Name Role Phone Shawna Garcia MD Primary Care Provider [phone] Mukul Jeong Primary Care Provider [phone] Abel Mclaughlin Primary Care Provider [phone] Encounter Details Date Type Department Care Team (Late st Contact Info) Description 08/01/2008 Orders Only [facility] Urology [address] [facility] [address] [place] [address] Juana Johnson NP Social History Tobacco Use [...] this encounter Procedures * Due to [place] [employer] law, this organization might not be sharing negative HIV tests. Procedure Name Priority Date/Time Associated Diagnosis Comments NON-GYNECOLOGICAL CYTOLOGY Routine 08/01/2008 2:47 PM EST CULTURE, URINE Routine 08/01/2008 Dysuria Hematuria URINALYSIS, COMPLETE (DIP & MICRO) Routine 08/01/2008 Dysuria Hematuria documented in this encounter Results * Due to [place] [employer] law, this organization might not be sharing negative HIV tests. * NON-GYNECOLOGICAL CYTOLOGY (08/01/2008 2:47 PM EST) NON-GYNECOLOGICAL CYTOLOGY SEE TEXT Comment: ? NON-GYNECOLOGICAL CYTOLOGY ?SOURCE: ??URINE ?RESULT: ??NO MALIGNANT CELLS ?INTERPRETATION: ??SQUAMOUS CELLS AND TRANSITIONAL ? CELLS ?COMMENTS: ??100 ML. OF CLEAR, LIGHT YELLOW ? FLUID, RECEIVED FIXED ? IN ALCOHOL AND PROCESSED BY ? CYTOSPIN. ? PATHOLOGIST: ??SIS COOMBS M.D. ? *SIGNATURE ON FILE* ? RESULT DATE: ??08/03/2008 ?TECHNOLOGIST: ??KG 08/01/2008 2:47 PM EST 08/02/2008 12:06 AM EST Narrative 08/03/2008 2:18 PM EST Report Comments: 100 ML. OF CLEAR, LIGHT YELLOW FLUID, RECEIVED FIXED IN ALCOHOL AND PROCESSED BY CYTOSPIN. us Juana Johnson NP PATHOLOGY-INTERFACED Final Resul t * (ABNORMAL) URINALYSIS, COMPLETE (DIP & MICRO) (08/01/2008) Pathologist [facility] COLOR (URINE) YELLOW YELLOW APPEARANCE (URINE) CLEAR CLEAR SPECIFIC GRAVITY 1.015 1.001 - 1.035 PH (URINE) 7.0 5.0 - 8.0 PROTEIN (URINE) NEG NEG GLUCOSE (URINE) NEG NEG Ketones (Urine) NEG NEG BILIRUBIN (URINE) NEG NEG BLOOD (URINE) TRACE(A) NEG WBC (URINE) NEG NEG NITRITE (URINE) NEG NEG WBC (URINE) 0 0-4/HPF RBC (Urine Sed) 0-3 0-3/HPF EPITHELIAL CELLS.SQUAMOUS (URINE SED) 0 0-5/HPF EPITHELIAL CELLS.TRANSITIO NAL (URINE SED) 0 0-5/HPF EPITHELIAL CELLS.RENAL (URINE SED) 0 0-3/HPF BACTERIA (URINE) NONE SEEN NONE SEEN 08/01/2008 08/01/2008 7:2 6 PM EST us Juana Johnson NP LAB SAME DAY RESULT Final Result * CULTURE, URINE (08/01/2008) URINE CULTURE CLEAN VOID SEE TEXT Comment: SOURCE: URINE NO GROWTH 08/01/2008 08/01/2008 7:2 6 PM EST us Juana Johnson NP LABORATORY Final Result documented in this encounter Visit Diagnoses Diagnosis Dysuria Hematuria Hematuria, unspecified documented in this encounter Additional Health Concerns Infection Onset Date Last Indicated Resolved Time COVID-19 Confirmed 07/08/2023 07/08/2023 documented as of this encounter Care Teams Plasma Processing Centrifuge Operator Relationship Specialty Start Date End Date Shawna Garcia MD [facility] [address] [place] [phone] PCP - General 05/14/07 06/30/11 Mukul Jeong [facility] [address] [place] [address] PCP - General Family Medicine 07/01/11 04/23/17 Abel Mclaughlin [address] [place] [phone] PCP - General Family Medicine 04/24/17 documented as of this encounter
--- OUTSIDE RECORDS SUMMARY | 2024-11-04 13:54 | XMS_ITS | Encounter Summary ---
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 Not on file Not on file documented as of this encounter Plan of Treatment Upcoming Encounters Date Type Department Care Team (Late st Contact Info) Description 11/08/2024 11:00 AM EDT Office Visit [address] [phone] Abel Mclaughlin III, MD [address] [place] [address] Scheduled Orders Name Type Priority Associated Diagnoses Orde r Schedule Urine culture (clean catch) (Lab Collect) Microbiology Routine Cystitis Expected: 11/03/2024, Expires: 11/03/2025 documented as of this encounter Visit Diagnoses Diagnosis Cystitis- Primary Unspecified cystitis documented in this encounter Care Teams Board Liner Operator Relationship Specialty Start Date End Date Abel Mclaughlin III, MD PCP - General 02/12/17 documented as of this encounter
--- OUTSIDE RECORDS SUMMARY | 2024-11-04 13:54 | XMS_ITS | Encounter Summary ---
Author Organization [facility] Address [address] [place] [address] Care Team Providers Care Sword Swallower Name Role Phone Shawna Garcia MD Primary Care Provider [phone] Mukul Jeong Primary Care Provider [phone] Abel Mclaughlin Primary Care Provider [phone] Encounter Details Date Type Department Care Team (Late st Contact Info) Description 03/11/2011 Orders Only [facility]rology [address] [facility] [address] [place] [address] James Brand MD [address] [place] [address] Social History Tobacco Use Types Packs/Day Years [...] Associated Diagnosis Comments CULTURE, URINE, ROUTINE Routine 03/11/2011 10:40 AM EDT UTI (urinary tract infection) URINALYSIS, COMPLETE INCLUDES DIPSTICK AND MICROSCOPIC Routine 03/11/2011 10:40 AM EDT UTI (urinary tract infection) documented in this encounter Results * Due to [place] state law, this organization might not be sharing negative HIV tests. * CULTURE, URINE, ROUTINE (03/11/2011 10:40 AM EDT) Bacteria culture (Urine) SEE NOTE [facility] Comment: {CULTURE, URINE, ROUTINE {[id number]) ??CULTURE, URINE, ROUTINE ??MICRO NUMBER: ?[id number] ??TEST STATUS: ? FINAL ??SPECIMEN SOURCE: ?? URINE ??SPECIMEN QUALITY: ??ADEQUATE ??RESULT: ?No Growth 03/11/2011 10:4 0 AM EDT 03/11/2011 8:42 PM EDT Narrative Resulting Agency Comment [id number] James Brand MD LABORATORY Final Result Performing Organization Address City/State/[facility] Co de Phone Number [facility] [address] [place] [address] * (ABNORMAL) URINALYSIS, COMPLETE INCLUDES DIPSTICK AND MICROSCOPIC (03/11/2011 10:40 AM EDT) Color (Urine) YELLOW YELLOW [facility] Comment:{COLOR {[id number]) Appearance (Urine) CLEAR CLEAR [facility] Comment:{APPEARANCE {[id number]) Specific gravity (Urine) 1.021 1.001 - 1.035 [facility] Comment:{SPECIFIC GRAVITY {[id number]) pH (Urine) 6.0 5.0 - 8.0 [facility] Comment:{PH {[id number]) Glucose (Urine) NEGATIVE NEGATIVE [facility] Comment:{GLUCOSE {[id number]) Bilirubin (Urine) NEGATIVE NEGATIVE [facility] Comment:{BILIRUBIN {[id number]) Ketones (Urine) NEGATIVE NEGATIVE [facility] Comment:{KETONES {[id number]) Hemoglobin (Urine) 3+(A) NEGATIVE [facility] Comment:{OCCULT BLOOD {[id number]) Protein (Urine) NEGATIVE NEGATIVE [facility] Comment:{PROTEIN {[id number]) Nitrite (Urine) NEGATIVE NEGATIVE [facility] Comment:{NITRITE {[id number]) Leukocyte esterase (Urine) NEGATIVE NEGATIVE [facility] Comment:{LEUKOCYTE ESTERASE {[id number]) WBC (Urine) 0-5 < OR = 5 /HPF [facility] Comment:{WBC {[id number]) RBC (Urine Sed) 20-40(A) < OR = 3 /HPF [facility] Comment:{RBC {[id number]) Epithelial cells.squamous (Urine sed) NONE SEEN < OR = 5 /HPF [facility] Comment:{SQUAMOUS EPITHELIAL CELLS {[id number]) Bacteria (Urine) FEW(A) NONE SEEN /HPF [facility] Comment:{BACTERIA {[id number]) Hyaline casts (Urine sed) NONE SEEN NONE SEEN /LPF [facility] Comment:{HYALINE CAST {[id number]) Service comment 01 SEE NOTE [facility] Comment: {NOTE {[id number]) This urine was analyzed for the presence of WBC, RBC, bacteria, casts, and other formed elements. Only those elements seen were reported. 03/11/2011 10:4 0 AM EDT 03/11/2011 8:42 PM EDT Narrative Resulting Agency Comment [id number] us James Brand MD LAB SAME DAY RESULT Final Resul t Performing Organization Address City/State/[facility] Co de Phone Number [facility] [address] [place] [address] documented in this encounter Visit Diagnoses Diagnosis UTI (urinary tract infection)- Primary Urinary tract infection, site not specified documented in this encounter Additional Health Concerns Infection Onset Date Last Indicated Resolved Time COVID-19 Confirmed 07/08/2023 07/08/2023 documented as of this encounter Care Teams Sword Swallower Relationship Specialty Start Date End Date Shawna Garcia MD [facility] [address] [place] [phone] PCP - General 05/14/07 06/30/11 Mukul Jeong [facility] [address] [place] [address] PCP - General Family Medicine 07/01/11 04/23/17 Abel Mclaughlin [address] [place] [phone] PCP - General Family Medicine 04/24/17 documented as of this encounter
--- OUTSIDE RECORDS SUMMARY | 2024-11-04 13:54 | XMS_ITS | Encounter Summary ---
Author Organization [facility] Address [address] [place] [address] Care Team Providers Care Clinical Trial Specialist Name Role Phone Abel Mclaughlin Primary Care Provider [phone] Encounter Details Date Type Department Care Team ([facility] st Contact Info) Description 06/08/2019 Orders Only [facility] [address] [address] Mely Valentine NP [address] [place] [address] Social History Tobacco Use Types Packs/Day Years [...] as of this encounter Progress Notes * Mely Valentine NP - 06/08/2019 12:09 PM EST Hematuria work up documented in this encounter Plan of Treatment Not on file documented as of this encounter Procedures * Due to [place] state law, this organization might not be sharing negative HIV tests. Procedure Name Priority Date/Time Associated Diagnosis Comments CULTURE, URINE, ROUTINE Routine 06/08/2019 12:09 PM EST Hematuria, unspecified type URINALYSIS, COMPLETE INCLUDES DIPSTICK AND MICROSCOPIC Routine 06/08/2019 12:09 PM EST Hematuria, unspecified type documented in this encounter Results * Due to [place] state law, this organization might not be sharing negative HIV tests. * CULTURE, URINE, ROUTINE (06/08/2019 12:09 PM EST) Bacteria culture (Urine) SEE NOTE [facility] Comment: ??CULTURE, URINE, ROUTINE ??Micro Number: ?[id number] ??Test Status: ? Final ??Specimen Source: ?? URINE ??Specimen Quality: ??Adequate ??Result: ?Single organism less than 10,000 CFU/mL isolated. ? These organisms, commonly found on external and ? internal genitalia, are considered colonizers. ? No further testing performed. 06/08/2019 12:0 9 PM EST 06/08/2019 10:23 PM EST Narrative Resulting Agency Comment [id number] us Mely Valentine DRIER AND EVAPORATOR OPERATOR LABORATORY Final Re sult Performing Organization Address City/State/[facility] Co de Phone Number [facility] [address] [place] [address] * (ABNORMAL) URINALYSIS, COMPLETE INCLUDES DIPSTICK AND MICROSCOPIC (06/08/2019 12:09 PM EST) Color (Urine) YELLOW YELLOW [facility] Appearance (Urine) CLEAR CLEAR [facility] Specific gravity (Urine) 1.017 1.001 - 1.035 [facility] pH (Urine) [...] NONE SEEN NONE SEEN /LPF [facility] 06/08/2019 12:0 9 PM EST 06/08/2019 10:23 PM EST Narrative Resulting Agency Comment [id number] us Mely Valentine DRIER AND EVAPORATOR OPERATOR LAB SAME DAY RESULT Jodi layton Result [facility] [address] [place] [address] documented in this encounter Visit Diagnoses Diagnosis Hematuria, unspecified type documented in this encounter Additional Health Concerns Infection Onset Date Last Indicated Resolved Time COVID-19 Confirmed 07/08/2023 07/08/2023 documented as of this encounter Care Teams Clinical Trial Specialist Relationship Specialty Start Date End Date Abel Mclaughlin [address] [place] [phone] PCP - General Family Medicine 04/24/17 documented as of this encounter
--- OUTSIDE RECORDS SUMMARY | 2024-11-04 13:54 | XMS_ITS | Encounter Summary ---
Author Organization [facility] Address [address] [place] [address] Care Team Providers Care Gluing Machine Operator Automatic Name Role Phone Abel Mclaughlin Primary Care Provider [phone] Encounter Details Date Type Department Care Team (Late st Contact Info) Description 06/28/2023 Orders Only [facility] [address] [address] Indira Alex, MARI [address] [place] [address] Medications Social History Tobacco Use Types Packs/Day [...] Diagnoses Not on filedocumented in this encounter Additional Health Concerns Infection Onset Date Last Indicated Resolved Time COVID-19 Confirmed 07/08/2023 07/08/2023 documented as of this encounter Care Teams Gluing Machine Operator Automatic Relationship Specialty Start Date End Date Abel Mclaughlin [address] [place] [phone] PCP - General Family Medicine 04/24/17 documented as of this encounter
--- OUTSIDE RECORDS SUMMARY | 2024-11-04 13:54 | XMS_ITS | Clinical Summary ---
Author Organization [facility] Address [address] [place] [address] Care Team Providers Care Box Stamper Name Role Phone Srini GUTIERREZ MD, Steven Humphries Primary Care Prov ider Allergies Active Allergy Reactions Criticality Noted Date Comments Oxycodone-Acetaminophen Nausea And Vomiting Medium DENIES Medications * This document contains information received from the source organization and may not represent a complete record from that organization. testosterone 20.25 mg/1.25 gram (1.62 %) gel in metered-dose pump AndroGel Pump 20.25 MG/ACT (1.62%) Transdermal Gel APPLY 1 PUMP TO EACH ARM EVERY DAY DIRECTED Quantity: 75; Refills: 0 Started -Feb-2016 Active 6 Active fentaNYL (DURAGESIC) 50 mcg/hr APPLY 1 PATCH TO SKIN EVERY 72 HOURS FOR 30 DAYS 0 8 Active oxyCODONE-aceta minophen (PERCOCET) 10-325 mg per tablet TAKE 1-2 TABLETS BY MOUTH EVERY 6 HOURS 0 8 Active tranexamic acid (LYSTEDA) 650 mg tablet Take 1 tablet by mouth 2 times daily. 1 Active gabapentin (NEURONTIN) 600 mg tablet Take 1 tablet (600 mg total) by mouth 3 times a day. 270 tablet 3 4 04/15/20 25 Active zolpidem (AMBIEN) 10 mg tablet Take 1 tablet (10 mg total) by mouth nightly as needed for sleep. 10 tablet 5 4 Active Vitamin D3 25 mcg (1,000 unit) capsule Take 1 capsule (1,000 Units total) by mouth once a day. 100 capsule 3 4 Active atorvastatin (LIPITOR) 40 mg tablet Take 1 tablet (40 mg total) by mouth once a day. 90 tablet 3 4 Active cimetidine (TAGAMET) 200 mg tablet SMARTSI Tablet(s) By Mouth Twice Daily 4 Active Active Problems Problem Noted Date Diagnosed Date Hypogonadism male 08/17/2015 Epididymal cyst 09/22/2014 Chronic interstitial cystitis 06/28/2014 Post-void dribbling 01/16/2014 Ventricular pre-excitation syndrome 11/15/2013 Pelvic pain in male 2013 Prostatitis 07/26/2013 Male stress incontinence 05/26/2012 Dysuria 05/26/2012 Resolved Problems Problem Noted Date Diagnosed Date Resolved Date Acute UTI (urinary tract infection) 08/30/2013 12/08/2018 Encounters Date Type Department Care Team Description 11/03/2024 Orders Only [address] [phone] Steven Milligan III, MD Cystitis (Primary Dx) 11/02/[address] [phone] Steven Milligan III, MD UTI 10/19/2024 3:15 PM EDT Lab [address] [address] Testicular failure 10/17/2024 Orders Only [address] [address] Junior Finnegan MD Testicular failure (Primary Dx) 10/03/[address] [phone] Steven Milligan III, MD from Last 3 Months Immunizations Immunization Administration Dates Next Due INFLUENZA, SPLIT VIRUS, TRIVALENT, PF 04/20/2024 Influenza, Injectable, Quadrivalent, Preservativ e Free 09/22/2019 Tetanus and Diphtheria Toxoi ds, Adsorbed, Preservative Free (2 Lf of Tetanus Toxoid and 2 Lf of Diphtheria Toxoid) 03/26/2005 Family History Medical History Relation Name Comments Lung cancer Father Other Mother Family history of No pertinent family history No Known Problems Sister endocardit is - leaky valve Relation Name Status Comments Father Mother Alive Sister Alive Social History Tobacco Use Types Packs/Day Years Used Date Smoking Tobacco: Every Day Cigarettes Smokeless Tobacco: Former Tobacco Cessation:Ready to Q uit: Not Asked; Counseling Given: Not Answered Comments:: Alcohol Use Standard Drinks/Week Comments Not Currently 0 (1 standard drink = 0.6 oz pur e alcohol) Sex and Gender Information Value Date Recorded Sex Assigned at Male 09/24/2023 1:12 PM EST Legal Sex Male 9:57 AM EDT Gender Identity Not on file Sexual Orientation Not on file 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 Not on file Not on file Last Filed Vital Signs Vital Sign Reading Time Taken Comments Blood Pressure 151/91 05/14/2024 2:08 PM EDT Pulse 112 05/14/2024 2:08 PM EDT Temperature 36.6 ??C (97.9 ??F) 05/14/2024 2:08 PM ED T Respiratory Rate 18 09/17/2022 11:33 AM EST Oxygen Saturation 98% 05/14/2024 2:08 PM EDT Inhaled Oxygen Concentration - - Weight 83 kg (183 lb) 04/20/2024 11:11 AM EDT Height 172.7 cm (5' 8 ) 04/20/2024 11:11 AM EDT Body Mass Index 27.83 04/20/2024 11:11 AM EDT Plan of Treatment Upcoming Encounters Date Type Department Care Team (Late st Contact Info) Description 11/08/2024 11:00 AM EDT Office Visit [address] Department [address] [place] [address] [address] [place] [address] Steven Milligan III, MD [address] [place] [address] Health Maintenance Due Date Last Done Comments Zenobia 1969 Colon Cancer Screening 1969 Colonoscopy 1969 FOBT / Fit Test 1969 HIV Screening 1969 Hepatitis C Screening 1969 Sigmoidoscopy 1969 Hepatitis B Vaccines (1 of 3 - 19+ 3-dose series) 1988 Pneumococcal Vaccine: 50+ Ye ars (1 of 2 - PCV) 1988 DTaP,Tdap,and Td Vaccines (1 - Tdap) 03/27/2005 03/26/2005 CT Lung Cancer Screening (Baseline) 09/27/2019 Zoster Vaccines (1 of 2) 09/27/2019 COVID-19 Vaccine (3 - 2023-2 5 season) 2024 04/19/2021, 12/13/2020 Alcohol/Substance Use Screening 07/27/2024 Depression Screening and Follow-Up 07/27/20242023 Social Drivers of Health Aneta ual Screening 07/27/2024 Medicare AWV 04/21/2025 04/20/2024 Basic Metabolic Panel 05/23/2025 05/23/2024 , 04/26/2024, 10/31/2022, Additional history exists RSV Vaccine (60+ years old a nd patients) (1 - 1-dose 75+ series) 2044 Abdominal Aortic Aneurysm (A AA) Screening Completed 06/14/2017, 06/23/2014 Influenza Vaccine Completed 04/20/2024, 09/22/2019 Procedures * Due to [place] state law, this organization might not be sharing negative HIV tests. Procedure Name Priority Date/Time Associated Diagnosis Comments TESTOSTERONE - HH Routine 10/19/2024 2:0 4 PM EDT Testicular failure PSA Routine 10/19/2024 2:04 PM EDT Testicular failure CBC AUTO DIFFERENTIAL Routine 10/19/2024 2:04 PM EDT Testicular failure COMPREHENSIVE METABOLIC PANEL Routine 04/26/2024 3:00 PM EDT Primary hypertension CT ABDOMEN PELVIS W CONTRAST Routine 06/23/2014 10:42 PM EST from Last 3 Months or Most Recently Relevant to Health Maintenance Results * Due to [place] state law, this organization might not be sharing negative HIV tests. * Testosterone - [place] only (10/19/2024 2:04 PM EDT) Pathologist [facility] [place] Testosterone 739.0 193.0 - 740.0 ng/dL 10/19/2024 2:55 PM EDT [facility] Blood Structure of peripheral vein / Unknown Venipuncture / Unknown 10/19/2024 2:04 PM EDT 10/19/2024 2:17 PM EDT us Junior Finnegan MD LAB BLOOD ORDERABLES Final Result Performing Organization Address City/State/[facility] Co de Phone Number [facility] [address] [place] [address], [place] [phone] * (ABNORMAL) CBC Auto Differential (10/19/2024 2:04 PM EDT) [facility] WBC 8.0 4.8 - 10.8 10*3/uL 10/19/2024 2:32 PM EDT [facility] RBC 5.23 4.70 - 6.10 10*6/uL 10/19/2024 2:32 PM EDT [facility] Hemoglobin 16.2 13.7 - 16.5 g/dL 10/19/2024 2:32 PM EDT [facility] Hematocrit 44.7 40.5 - 48.5 % 10/19/2024 2:32 PM EDT [facility] MCV 85.5 80.0 - 94.0 fL 10/19/2024 2:32 PM EDT [facility] MCH 31.0 26.0 - 34.0 pg 10/19/2024 2:32 PM EDT [facility] MCHC 36.2(H) 31.0 - 36.0 g/dL 10/19/2024 2:32 PM EDT [facility] RDW 12.1 12.0 - 15.0 % 10/19/2024 2:32 PM EDT [facility] RDW Standard Deviation 37.7 35.1 - 43.9 fL 10/19/2024 2:32 PM EDT [facility] Platelets 195 140 - 440 10*3/uL 10/19/2024 2:32 PM EDT [facility] MPV 9.4 9.4 - 12.4 fL 10/19/2024 2:32 PM EDT [facility] Neutrophil % 52.7 50.0 - 75.0 % 10/19/2024 2:32 PM EDT [facility] Immature Grans % 0.3 0.0 - 0.9 % 10/19/2024 2:32 PM EDT [facility] Lymphocyte % 40.7 20.0 - 44.0 % 10/19/2024 2:32 PM EDT [facility] Monocyte % 4.6 0.0 - 14.0 % 10/19/2024 2:32 PM EDT [facility] Eosinophil % 1.1 0.0 - 5.0 % 10/19/2024 2:32 PM EDT [facility] Basophil % 0.6 0.0 - 2.0 % 10/19/2024 2:32 PM EDT [facility] Neutrophil # 4.20 1.80 - 7.70 10*3/uL 10/19/2024 2:32 PM EDT [facility] Immature Grans # <0.03 0.00 - 0.03 10*3/uL 10/19/2024 2:32 PM EDT [facility] Lymphocyte # 3.30 1.00 - 4.75 10*3/uL 10/19/2024 2:32 PM EDT [facility] Monocyte # 0.40 0.00 - 0.60 10*3/uL 10/19/2024 2:32 PM EDT [facility] Eosinophil # 0.10 0.00 - 0.80 10*3/uL 10/19/2024 2:32 PM EDT [facility] Basophil # 0.10 0.00 - 0.20 10*3/uL 10/19/2024 2:32 PM EDT [facility] nRBC % 0.0 0 - 0 /100 WBCs 10/19/2024 2:32 PM EDT [facility] nRBC # <0.01 0.00 - 0.13 10*3/uL 10/19/2024 2:32 PM EDT [facility] Blood Structure of peripheral vein / Unknown Venipuncture / Unknown 10/19/2024 2:04 PM EDT 10/19/2024 2:17 PM EDT us Junior Finnegan MD LAB BLOOD ORDERABLES Final Result Performing Organization Address [facility]/ZIP Co de Phone Number [facility] [address] [address], [place] [phone] * PSA (10/19/2024 2:04 PM EDT) PSA 0.055 <=4.000 ng/mL 10/19/2024 2:55 PM EDT [facility] Blood Structure of peripheral vein / Unknown Venipuncture / Unknown 10/19/2024 2:04 PM EDT 10/19/2024 2:17 PM EDT us Junior Finnegan MD LAB BLOOD ORDERABLES Final Result Performing Organization Address [facility] Co de Phone Number [facility] [address] [address], [place] [phone] * (ABNORMAL) Comprehensive Metabolic Panel (04/26/2024 3:00 PM EDT) NA 139 136 - 145 mmol/L 04/26/2024 3:53 PM EDT [facility] K 3.8 3.5 - 5.1 mmol/L 04/26/2024 3:53 PM EDT [facility] Cl 104 98 - 109 mmol/L 04/26/2024 3:53 PM EDT [facility] CO2 23 22 - 32 mmol/L 04/26/2024 3:53 PM EDT [facility] Anion Gap 16 >=0 04/26/2024 3:53 PM EDT [facility] Glucose 123(H) 60 - 99 mg/dL 04/26/2024 3:53 PM EDT [facility] Creatinine 1.01 0.50 - 1.12 mg/dL 04/26/2024 3:53 PM EDT [facility] Calcium 9.3 8.4 - 10.4 mg/dL 04/26/2024 3:53 PM EDT [facility] Total Protein 7.1 6.6 - 8.7 g/dL 04/26/2024 3:53 PM EDT [facility] Albumin 4.5 3.5 - 5.0 g/dL 04/26/2024 3:53 PM EDT [facility] Bilirubin, Total 0.5 0.2 - 1.2 mg/dL 04/26/2024 3:53 PM EDT [facility] Alkaline Phosphatase 77 40 - 129 U/L 04/26/2024 3:53 PM EDT [facility] AST 15 0 - 40 U/L 04/26/2024 3:53 PM EDT [facility] ALT 7 <=41 U/L 04/26/2024 3:53 PM EDT [facility] BUN 12 6 - 20 mg/dL 04/26/2024 3:53 PM T [facility] eGFR 88 >=60 mL/min/1. 73m2 04/26/2024 3:53 PM T [facility] Comment:The estimated glomer ular filtration rate (eGFR) is calculated using a new formula developed by the NKF-ASN task force to eliminate race-based correction factors. The new formula uses serum/plasma creatinine, age, and gender to determine eGFR. A value below 60mls/min might indicate kidney disease and will be flagged. For additional information, see Deandre gray al, Am J Kidney Dis. 2021;79(2):268- 288, A Unifying Approach for GFR estimation: Recommendations of the NKF-ASN Task Force on Reassessing the Inclusion of Race in Diagnosing Kidney Disease . Globulin, Total 2.6 2.1 - 4.2 g/dL 04/26/2024 3:53 PM EDT [facility] A/G Ratio 1.7 1.5 - 3.0 04/26/2024 3:53 PM EDT [facility] Blood Structure of peripheral vein / Unknown Venipuncture / Unknown 04/26/2024 3:00 PM EDT 04/26/2024 3:07 PM EDT us Steven Milligan III, MD LAB BLOOD ORDERABL ES Final Result Performing Organization Address City/State/[facility] Co de Phone Number [facility] [address] [place] [phone], * CT Abdomen Pelvis with Contrast (06/23/2014 10:42 PM EST) Anatomical Region Laterality Modality Body Computed Tomogra phy 06/24/2014 5:16 PM EST Narrative 06/24/2014 5:31 PM EST ? DEPARTMENT OF RADIOLOGY Patient: VOLODYMYR JOHNSON JR ?Unit #: [id number] Ordering MD: HEAVENLY GREENWOOD COMMUNITY RELATIONS MANAGER ?: 1970 Procedure: CT Abdomen & Pelvis W/IV Cont ?Age: 43 Location: [facility] ? Exam Date: 06/23/14 Status: DEP ER ?Room/Bed: Primary MD: STEVEN MILLIGAN III, MD ?Patient ?Order: [id number] Additional Copy: ??STEVEN MILLIGAN III, MD, PAMELA D NP MARINO, ANDREW MD - INDICATION: ??Hematuria and pelvic pain COMPARISON: CT study of December 03, 2006 TECHNIQUE: Axial multislice images were acquired after the administration of oral and intravenous contrast. ??Coronal and sagittal reformatted images were used and were essential for interpretation of findings. ??The patient received 130 cc of Omnipaque 350. DOSE:764 mGy /cm FINDINGS: LOWER THORAX: No evidence of pulmonary abnormality. No evidence of pleural or pericardial effusion. HEPATOBILIARY: Two 2mm punctate hypodensities in the right hepatic lobe are too small to fully characterize but likely represent simple cysts.. ??No biliary ductal dilatation. The gallbladder is contracted and unremarkable without evidence of stones or gallbladder wall thickening. PANCREAS: No focal masses or ductal dilatation. SPLEEN: No splenomegaly. No focal splenic lesions. ADRENALS: No adrenal nodules. KIDNEYS/URETERS/BLADDER: No hydronephrosis, stones, or solid mass lesions. ??An exophytic 1.8 cm simple cyst is seen arising from the upper pole of the right kidney. PELVIC ORGANS: There is a hypodense 2.4 x 2.1 cm region in the prostate likely secondary to prior resection. Findings are likely post operative however superimposed infection cannot be excluded. ??The bladder is unremarkable. ??No calculus identified. PERITONEUM / RETROPERITONEUM: No free air or fluid. LYMPH NODES: No lymphadenopathy. VESSELS: Unremarkable. GI TRACT: No distention or wall thickening. ??The appendix is clearly identified and appears normal. BONES AND SOFT TISSUES: Unremarkable. CONCLUSION: Hypodense region in the prostate is likely post resection however a underlying infection cannot be excluded . The history of chronic prostatitis is noted. MRI may be of benefit. No renal, ??ureteric or bladder calculi. POI: Gab ELECTRONICALLY SIGNED BY: ??BILL AGUIAR 06/24/2014 5:28 PM Procedure Note Provider, Historical Conversion - 04/25/2023 DEPARTMENTOF RADIOLOGY [place] t: VOLODYMYR JOHNSON Unit #:[id number] Ordering MD: HEAVENLY GREENWOOD NP :1970 Procedure: CT Abdomen & Pelvis W/IV Cont Age:43 Location: [facility] ExamDate: 06/23/14 Status: DEP ERRoom/Bed: Primary MD: STEVEN MILLIGAN III, MD PatientAcct #: [id number] Order:[id number] Additional Copy: SRINI III, STEVEN HEAVENLY HAN MD, NP, ANDREW MD - INDICATION: Hematuria and pelvic pain COMPARISON: CT study of December 03, 2006 TECHNIQUE: Axial multislice images were acquired after the administrationof oral and intravenous contrast. Coronal and sagittal reformatted images were used and were essential for interpretation offindings. The patient received 130 cc of Omnipaque 350. DOSE:764 mGy /cm FINDINGS: LOWER THORAX: No evidence of pulmonary abnormality. No evidence ofpleural or pericardial effusion. HEPATOBILIARY: Two 2mm punctate hypodensities in the right hepatic lobeare too small to fully characterize but likely represent simple cysts.. No biliary ductal dilatation. The gallbladder iscontracted and unremarkable without evidence of stones or gallbladder wall thickening. PANCREAS: No focal masses or ductal dilatation. SPLEEN: No splenomegaly. No focal splenic lesions. ADRENALS: No adrenal nodules. KIDNEYS/URETERS/BLADDER: No hydronephrosis, stones, or solid masslesions. An exophytic 1.8 cm simple cyst is seen arising from the upper pole of the right kidney. PELVIC ORGANS: There is a hypodense 2.4 x 2.1 cm region in the prostatelikely secondary to prior resection. Findings are likely post operative however superimposed infection cannot be excluded. Thebladder is unremarkable. No calculus identified. PERITONEUM / RETROPERITONEUM: No free air or fluid. LYMPH NODES: No lymphadenopathy. VESSELS: Unremarkable. GI TRACT: No distention or wall thickening. The appendix is clearlyidentified and appears normal. BONES AND SOFT TISSUES: Unremarkable. CONCLUSION: Hypodense region in the prostate is likely post resection however aunderlying infection cannot be excluded . The history of chronic prostatitis is noted. MRI may be of benefit. No renal, ureteric or bladder calculi. POI: Gab ELECTRONICALLY SIGNED BY: BILL AGUIAR 06/24/2014 5:28 PM us Heavenly Greenwood NP IMG CT PROCEDURES Final Resu lt from Last 3 Months or Most Recently Relevant to Health Maintenance Insurance [facility] MEDICARE Advance Directives Documents on File Type Date Recorded Patient Senior Auditor Expl anation Health Care Proxy 04/20/2024 3:55 PM 10-02 Advance Directive 08/24/2012 12:00 AM Adva nce Care Directives Advance Directive 08/04/2012 12:00 AM sf Me dical Dec Making (Adv.Dir) Care Teams Box Stamper Relationship Specialty Start Date End Date Steven Milligan III, MD PCP - General 02/12/17
--- OUTSIDE RECORDS SUMMARY | 2024-11-04 13:54 | XMS_ITS | Referral Summary ---
Author Organization [facility] Address [address] [place] [address] Care Team Providers Care Experience Specialist Name Role Phone Arnoldo GUTIERREZ MD, Steven Humphries Primary Care Prov ider Encounters Date Type Department Care Team Description 11/03/2024 Orders Only [address] [address] Steven Milligan III, MD Cystitis (Primary Dx) 11/02/[address] [address] Steven Milligan III, MD UTI 10/19/2024 3:15 PM EDT Lab [address] [address] Testicular failure 10/17/2024 Orders Only [address] [address] Junior Finnegan MD Testicular failure (Primary Dx) 10/03/[address] [address] Steven Milligan III, MD from Last 3 Months Allergies Active Allergy Reactions Criticality Noted Date [...] DAY DIRECTED Quantity: 75; Refills: 0 Started 14-Mar-2016 Active 6 Active fentaNYL (DURAGESIC) 50 mcg/hr [...] Acute UTI (urinary tract infection) 08/30/2013 12/08/2018 Immunizations Immunization Administration Dates Next Due INFLUENZA, SPLIT VIRUS, TRIVALENT, PF 04/20/2024 Influenza, Injectable, Quadrivalent, Preservativ e Free 09/22/2019 Tetanus and Diphtheria Toxoi ds, Adsorbed, Preservative Free (2 Lf of Tetanus Toxoid and 2 Lf of Diphtheria Toxoid) 03/26/2005 Social History Tobacco Use Types Packs/Day Years [...] 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 * Testosterone - [place] only (10/19/2024 2:04 PM EDT) Testosterone 739.0 193.0 - 740.0 ng/dL 10/19/2024 2:55 PM EDT [facility] Blood Structure of peripheral vein / Unknown Venipuncture / Unknown 10/19/2024 2:04 PM EDT 10/19/2024 2:17 PM EDT us Junior Finnegan MD LAB BLOOD ORDERABLES Final Result Performing Organization Address City/State/[facility] Co de Phone Number [facility] [address] [place] [address] [address] [place] [address], * (ABNORMAL) CBC Auto Differential (10/19/2024 2:04 PM EDT) WBC 8.0 4.8 - 10.8 10*3/uL 10/19/2024 2:32 PM EDT [facility] RBC 5.23 4.70 - 6.10 10*6/uL 10/19/2024 2:32 PM EDT [facility] Hemoglobin 16.2 13.7 - 16.5 g/dL 10/19/2024 2:32 PM EDT [facility] Hematocrit 44.7 40.5 - 48.5 % 10/19/2024 2:32 PM EDT [facility] MCV 85.5 80.0 - 94.0 fL 10/19/2024 2:32 PM EDT [facility] MCH 31.0 26.0 - 34.0 pg 10/19/2024 2:32 PM EDT [facility] MCHC 36.2(H) 31.0 - 36.0 g/dL 10/19/2024 2:32 PM EDT [facility] RDW 12.1 12.0 - 15.0 % 10/19/2024 2:32 PM EDT [facility] RDW Standard Deviation 37.7 35.1 - 43.9 fL 10/19/2024 2:32 PM EDT [facility] Platelets 195 140 - 440 10*3/uL 10/19/2024 2:32 PM EDT [facility] MPV 9.4 9.4 - 12.4 fL 10/19/2024 2:32 PM EDT [facility] Neutrophil % 52.7 50.0 - 75.0 % 10/19/2024 2:32 PM EDT [facility] Immature Grans % 0.3 0.0 - 0.9 % 10/19/2024 2:32 PM EDT [facility] Lymphocyte % 40.7 20.0 - 44.0 % 10/19/2024 2:32 PM EDT [facility] Monocyte % 4.6 0.0 - 14.0 % 10/19/2024 2:32 PM EDT [facility] Eosinophil % 1.1 0.0 - 5.0 % 10/19/2024 2:32 PM EDT [facility] Basophil % 0.6 0.0 - 2.0 % 10/19/2024 2:32 PM EDT [facility] Neutrophil # 4.20 1.80 - 7.70 10*3/uL 10/19/2024 2:32 PM EDT [facility] Immature Grans # <0.03 0.00 - 0.03 10*3/uL 10/19/2024 2:32 PM EDT [facility] Lymphocyte # 3.30 1.00 - 4.75 10*3/uL 10/19/2024 2:32 PM EDT [facility] Monocyte # 0.40 0.00 - 0.60 10*3/uL 10/19/2024 2:32 PM EDT [facility] Eosinophil # 0.10 0.00 - 0.80 10*3/uL 10/19/2024 2:32 PM EDT [facility] Basophil # 0.10 0.00 - 0.20 10*3/uL 10/19/2024 2:32 PM EDT [facility] nRBC % 0.0 0 - 0 /100 WBCs 10/19/2024 2:32 PM EDT [facility] nRBC # <0.01 0.00 - 0.13 10*3/uL 10/19/2024 2:32 PM EDT [facility] Blood Structure of peripheral vein / Unknown Venipuncture / Unknown 10/19/2024 2:04 PM EDT 10/19/2024 2:17 PM EDT us Junior Finnegan MD LAB BLOOD ORDERABLES Final Result [facility] [address] [address], [place] [phone] * PSA (10/19/2024 2:04 PM EDT) PSA 0.055 <=4.000 ng/mL 10/19/2024 2:55 PM EDT [facility] Blood Structure of peripheral vein / Unknown Venipuncture / Unknown 10/19/2024 2:04 PM EDT 10/19/2024 2:17 PM EDT us Junior Finnegan MD LAB BLOOD ORDERABLES Final Result [facility] [address] [address], [place] [phone] * (ABNORMAL) Comprehensive Metabolic Panel (04/26/2024 3:00 PM EDT) NA 139 136 - 145 mmol/L 04/26/2024 3:53 PM EDT [facility] K 3.8 3.5 - 5.1 mmol/L 04/26/2024 3:53 PM EDT [facility] Cl 104 98 - 109 mmol/L 04/26/2024 3:53 PM EDT [facility] CO2 23 22 - 32 mmol/L 04/26/2024 3:53 PM EDT [facility] Anion Gap 16 >=0 04/26/2024 3:53 PM EDT [facility] Glucose 123(H) 60 - 99 mg/dL 04/26/2024 3:53 PM EDT [facility] Creatinine 1.01 0.50 - 1.12 mg/dL 04/26/2024 3:53 PM EDT [facility] Calcium 9.3 8.4 - 10.4 mg/dL 04/26/2024 3:53 PM EDT [facility] Total Protein 7.1 6.6 - 8.7 g/dL 04/26/2024 3:53 PM EDT [facility] Albumin 4.5 3.5 - 5.0 g/dL 04/26/2024 3:53 PM EDT [facility] Bilirubin, Total 0.5 0.2 - 1.2 mg/dL 04/26/2024 3:53 PM EDT [facility] Alkaline Phosphatase 77 40 - 129 U/L 04/26/2024 3:53 PM EDT [facility] AST 15 0 - 40 U/L 04/26/2024 3:53 PM EDT [facility] ALT 7 <=41 U/L 04/26/2024 3:53 PM EDT [facility] BUN 12 6 - 20 mg/dL 04/26/2024 3:53 PM EDT [facility] eGFR 88 >=60 mL/min/1. 73m2 04/26/2024 3:53 PM EDT [facility] Comment:The estimated glomer ular filtration rate [...] - 4.2 g/dL 04/26/2024 3:53 PM EDT [facility] A/G Ratio 1.7 1.5 - 3.0 04/26/2024 3:53 PM EDT [facility] Blood Structure of peripheral vein / Unknown Venipuncture / Unknown 04/26/2024 3:00 PM EDT 04/26/2024 3:07 PM EDT us Steven Milligan III, MD LAB BLOOD ORDERABL ES Final Result [facility] [address] [place] [address], * CT Abdomen Pelvis with Contrast (06/23/2014 10:42 PM EST) Anatomical Region Laterality Modality Body Computed Tomogra phy 06/24/2014 5:16 PM EST Narrative 06/24/2014 5:31 PM EST ? DEPARTMENT OF RADIOLOGY Patient: VOLODYMYR JOHNSON JR ?Unit #: [id number] Ordering MD: HEAVENLY GREENWOOD NP ?: 1970 Procedure: CT Abdomen & Pelvis [...] Provider, Historical Conversion - 04/25/2023 DEPARTMENTOF RADIOLOGY Patien t: VOLODYMYR JOHNSON Unit #:[id number] Ordering MD: HEAVENLY GREENWOOD NP :1970 Procedure: CT Abdomen & Pelvis W/IV Cont Age:43 Location: [facility] ExamDate: 06/23/14 Status: DEP ERRoom/Bed: Primary MD: STEVEN MILLIGAN III, MD PatientAcct #: [id number] Order:[id number] Additional Copy: STEVEN MILLIGAN III, MD, PAMELA D NP MARINO, ANDREW MD - INDICATION: Hematuria and pelvic [...] No renal, ureteric or bladder calculi. POI: [place] ELECTRONICALLY SIGNED BY: BILL AGUIAR 06/24/2014 5:28 PM Heavenly Greenwood PSYCHIATRIC SOCIAL WORKER IMG CT PROCEDURES Final Resu lt from Last 3 Months or Most Recently Relevant to Health Maintenance [place] [address] [place] [address] MEDICARE Advance Directives Documents on File Type Date Recorded Patient Product Marketing Coordinator Expl anation Health Care Proxy 04/20/2024 3:55 PM 10-02 Advance Directive 08/24/2012 12:00 AM Adva nce Care Directives Advance Directive 08/04/2012 12:00 AM ismael Guzman dical Dec Making (Adv.Dir) Care Teams Experience Specialist Relationship Specialty Start Date End Date Steven Milligan III, MD [facility] - General 02/12/17
--- OUTSIDE RECORDS SUMMARY | 2024-11-04 13:55 | XMS_ITS | Encounter Summary ---
Author Organization [facility] Address [address] [place] [address] Care Team Providers Care Collection Systems Modeler Name Role Phone Mukul Jeong Primary Care Provider [phone] Abel Mclaughlin Primary Care Provider [phone] Encounter Details Date Type Department Care Team ([facility] st Contact Info) Description 03/11/2012 Orders Only [facility] [address] [facility] [address] [place] [address] James Brand MD [address] [place] [address] Social History Tobacco Use Types Packs/Day Years [...] of this encounter Procedures * Due to [place] [employer] law, this organization might not be sharing negative HIV tests. Procedure Name Priority Date/Time Associated Diagnosis Comments URINALYSIS, MICROSCOPIC WITH REFLEX CULTURE Routine 03/11/2012 10:40 AM EDT Dysuria documented in this encounter Results * Due to [place] [employer] law, this organization might not be sharing negative HIV tests. * (ABNORMAL) URINALYSIS, MICROSCOPIC WITH REFLEX CULTURE (03/11/2012 10:40 AM EDT) WBC (Urine) NONE SEEN < OR = 5 /HPF [facility] Comment:{WBC {[id number]) RBC (Urine Sed) 10-20(A) < OR = 3 /HPF [facility] Comment:{RBC {[id number]) Epithelial cells.squamous (Urine sed) NONE SEEN < OR = 5 /HPF [facility] Comment:{SQUAMOUS EPITHELIAL CELLS {[id number]) Bacteria (Urine) NONE SEEN NONE SEEN /HPF [facility] Comment:{BACTERIA {[id number]) Hyaline casts (Urine sed) NONE SEEN NONE SEEN /LPF [facility] Comment:{HYALINE CAST {[id number]) 03/11/2012 10:4 0 AM EDT 03/11/2012 5:52 PM EDT Narrative Resulting Agency Comment [id number] us James Brand MD LABORATORY Final Result [facility] [address] [place] [address] documented in this encounter Visit Diagnoses Diagnosis Dysuria documented in this encounter Additional Health Concerns Infection Onset Date Last Indicated Resolved Time COVID-19 Confirmed 07/08/2023 07/08/2023 documented as of this encounter Care Teams Collection Systems Modeler Relationship Specialty Start Date End Date Mukul Jeong [facility] [address] [place] [address] PCP - General Family Medicine 07/01/11 04/23/17 Abel Mclaughlin [address] [place] [id number] PCP - General Family Medicine 04/24/17 documented as of this encounter
== END 2024-11-04 14:57 | disposition home or self-care (01) ==
LOC: HO.HUSH 13:32
PROVIDERS: PCP Family Medicine; Visit Provider Urology
DX: R10.2 Pelvic and perineal pain (principal); G89.29 Other chronic pain; N30.11 Interstitial cystitis (chronic) with hematuria
CPT/HCPCS: 99214; G2211

== ENCOUNTER → 2024-11-04 13:32 | Outpatient (BNVA) | payer MEDICARE, MEDICAID, SELFPAY | PROVIDERS: PCP Family Medicine; Visit Provider Urology ==

== ENCOUNTER 2025-05-09 13:35 | Outpatient (AMB) | payer MEDICARE, MEDICAID, SELFPAY ==
--- NOTE | 2025-05-09 13:43 | A.OFFVIS_ITS ---
Intake Visit Reasons: 6m follow up Intake Note: Patient is present for 6M Urology Medication:AMITRIPTYLINE,TRANEXAMIC,TESTOSTERONE,GABAPENTIN Antibiotic Allergy:NONE Blood Thinner:NONE Labs done : 03/23/25: Total testosterone 1174, PSA 0.084 Music Professionals Required: No Accompanied by: Self / Same As Patient Allergies No Known Allergies Allergy (Verified 05/09/25 13:44) HPI Comments Details: Tony is a pleasant male. He is a patient of Dr. Mclaughlin. He is seen for the following urologic conditions - Interstitial cystitis - Chronic pelvic pain syndrome - Painful ejaculation - Peyronies Disease - Hypogonadism Six-month review T labs higher end of normal. Tony tells me he is applying 3 dots to scrotum daily Refill medications for tranexamic acid and cimetidine to use during the day Disruption is having significant impact inability to work 6 month follow-up repeat labs Hypogonadism: He presents today for further evaluation and followup of his hypogonadism. The onset of symptoms has been gradual. Associate conditions include chronic pain with opioid use Yes obstructive sleep apnea No CAD No obesity No stress - financial, family, employment No heavy alcohol or illicit drug use No Laboratory results 05/14 250, 03/18 426, 11/17 360, 11/18 T 740 P 1.0, 03/20 1174 0.1 Current therapy includes gel/cream exogenous testosterone - apply sparingly to testicle. Prior therapy includes testosterone, topical, minimal effect. Peyronie's Disease: The patient presents for followup up evaluation for penile disorder. Primary complaint is penile curvature, to the right - associated hour glass deformity. At this time he experiences partial erections sufficient for penetrative intercourse. Prior management includes responded previously to antioxidant and Vit E therapy with vaccum. Interstitial cystitis: Prior therapy - elmiron, ranitidine, tums all with some effect. The interstitial cystitis was diagnosed longstanding since 2009. Current symptoms include pelvic pain, urinary urgency. Severity of the pain is 7 out of 10, that is moderate. Character of the pain is chronic. Prostatitis/CPPS: They present for further evaluation of, chronic pelvic pain syndrome. He is currently being treated with pain medications. Testing included 07/14 cystoscopy - open prostate and normal bladder 07/14 MRI pelvis - no enlargement of seminal vesicles - responds well to long-term fentanyl patch and oxycodone. 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 Hypogonadism male Interstitial cystitis Microscopic hematuria Microscopic hematuria Peyronie's disease UTI (urinary tract infection) Surgical History History of bladder surgery History of prostatectomy Social History Patient Tobacco Use Status: Current everyday Tobacco user Review of Systems Const Denies chills and Denies fever(s) Card Reports no additional complaints and Denies syncope Resp Denies cough GI Denies abdominal pain and Denies heartburn Reports as per HPI and Denies change in libido Neuro Denies syncope Psych Denies change in libido Endo Denies change in libido Physical Exam Const General: cooperative, healthy appearing, comfortable and no acute distress Orientation/consciousness: patient oriented x3 HEENT Face and sinus: Yes normal facial exam Mouth: moist mucous membranes Neck Neck: Yes normal visual inspection, Yes full ROM and Yes trachea midline Chest Chest palpation & inspection: normal inspection of the chest Resp Effort & Inspection: normal respiratory effort, able to speak in complete sentences and no respiratory distress GI Inspection: Yes normal to inspection Back/Spine/Pelvis Cervical Spine: normal cervical lordosis Thoracic/Lumbar Spine: thoracic and lumbar spine normal to inspection Skin General skin exam: no rashes or lesions noted Neuro General: patient oriented x3, gait normal, tone normal and moves all extremities Extrem General: Yes normal to inspection and Yes capillary refill normal Assessment & Plan Assessment & Plan (1) Chronic pelvic pain in male: Code(s): R10.2 - Pelvic and perineal pain; G89.29 - Other chronic pain Category: Medical (2) Interstitial cystitis (chronic) with hematuria: Code(s): N30.11 - Interstitial cystitis (chronic) with hematuria Category: Medical (3) Microscopic hematuria: Code(s): R31.29 - Other microscopic hematuria Category: Medical (4) Hypogonadism in male: Code(s): E29.1 - Testicular hypofunction Category: Medical Plan Medication refill Orders: Orders Hematocrit 5 Months E29.1 - Testicular hypofunction Testosterone, Total 5 Months E29.1 - Testicular hypofunction Prostate Specific Antigen 5 Months E29.1 - Testicular hypofunction Medications: Refilled gabapentin 600 mg PO BEDTIME 30 tabs 0RF 30 days G89.29 - Other chronic pain, R10.2 - Pelvic and perineal pain amitriptyline 50 mg PO BEDTIME 30 tabs 1RF 30 days G89.29 - Other chronic pain, R10.2 - Pelvic and perineal pain tranexamic acid 650 mg PO BID 180 tabs 1RF 90 days R31.29 - Other microscopic hematuria naproxen (Naprosyn) 500 mg PO Q12H 60 tabs 0RF pain 30 days G89.29 - Other chr onic pain, R10.2 - Pelvic and perineal pain testosterone (AndroGel) apply 1 pump amount over max area of EACH upper arm and shoulder total 2 pumps 2 pumps topical DAILY 75 grams 5RF 28 days E29.1 - Testicular hypofunction Patient Instructions: This note is constructed using voice recognition software. While every effort has been made to ensure accuracy slide forming machine operator errors may have been included. Imaging studies, laboratory and physical exam results were discussed and reviewed in detail. No major barriers to patient understanding were identified. An opportunity to ask questions regarding the treatment plan was provided. All questions were answered. The patient expressed understanding and agreement with the above treatment plan. The patient is aware they should contact our office by phone for worsening of their current condition or the appearance of new urologic symptoms. Compliance is encouraged with any medications and followup testing that is ordered. It is a privilege to participate in the urologic care of your patient. If you have any questions or concerns regarding treatment for the above conditions, or other urologic issues, please do not hesitate to contact me. The office telephone contact is [phone]. Sincerely, Dr Junior Finnegan MD, [facility] - Urology Compassionate Specialist Care for the Genitourinary System Coding Level of Care Code Est Pt Level 4 (57606) Complex EM visit Add On G2211 Diagnoses Chronic pelvic pain in male R10.2; G89.29 Interstitial cystitis (chronic) with hematuria N30.11 Microscopic hematuria R31.29 Hypogonadism in male E29.1
--- OUTSIDE RECORDS SUMMARY | 2025-05-09 16:27 | XMS_ITS | Encounter Summary ---
Author Organization [facility] Address [address] [place] [address] Care Team Providers Care Durability Technician Name Role Phone Shawna Garcia MD Primary Care Provider [phone] Mukul Jeong Primary Care Provider [phone] Abel Mclaughlin Primary Care Provider [phone] Encounter Details Date Type Department Care Team (Late st Contact Info) Description 04/28/2011 Orders Only [facility] [address] [facility] [address] [place] [address] James Brand MD [address] [place] [address] Social History Tobacco Use Types Packs/Day Years [...] this encounter Procedures * Due to [place] [employer] law, this organization might not be sharing negative HIV tests. Procedure Name Priority Date/Time Associated Diagnosis Comments URINALYSIS, COMPLETEW/REFLEX TO CULTURE Routine 04/28/2011 4:43 PM EDT Dysuria documented in this encounter Results * Due to [place] [employer] law, this organization might not be sharing negative HIV tests. * (ABNORMAL) URINALYSIS, COMPLETEW/REFLEX TO CULTURE (04/28/2011 4:43 PM EDT) Color (Urine) YELLOW YELLOW [facility] Comment:{COLOR {[id number]) Appearance (Urine) CLEAR CLEAR [facility] Comment:{APPEARANCE {[id number]) Specific gravity (Urine) 1.019 1.001 - 1.035 [facility] Comment:{SPECIFIC GRAVITY {[id number]) pH (Urine) 7.0 5.0 - 8.0 [facility] Comment:{PH {[id number]) Glucose (Urine) NEGATIVE NEGATIVE [facility] Comment:{GLUCOSE {[id number]) Bilirubin (Urine) NEGATIVE NEGATIVE [facility] Comment:{BILIRUBIN {[id number]) Ketones (Urine) NEGATIVE NEGATIVE [facility] Comment:{KETONES {[id number]) Hemoglobin (Urine) 2+(A) NEGATIVE [facility] Comment:{OCCULT BLOOD {[id number]) Protein (Urine) NEGATIVE NEGATIVE [facility] Comment:{PROTEIN {[id number]) Nitrite (Urine) NEGATIVE NEGATIVE [facility] Comment:{NITRITE {[id number]) Leukocyte esterase (Urine) NEGATIVE NEGATIVE [facility] Comment:{LEUKOCYTE ESTERASE {[id number]) WBC (Urine) 0-5 < OR = 5 /HPF [facility] Comment:{WBC {[id number]) RBC (Urine Sed) 20-40(A) < OR = 3 /HPF [facility] Comment:{RBC {[id number]) Epithelial cells.squamous (Urine sed) NONE SEEN < OR = 5 /HPF [facility] Comment:{SQUAMOUS EPITHELIAL CELLS {[id number]) Bacteria (Urine) NONE SEEN NONE SEEN /HPF [facility] Comment:{BACTERIA {[id number]) Hyaline casts (Urine sed) NONE SEEN NONE SEEN /LPF [facility] Comment:{HYALINE CAST {[id number]) 04/28/2011 4:43 PM EDT 04/29/2011 12:30 AM EDT Narrative Resulting Agency Comment [id number] us James Brand MD LABORATORY Final Result [facility] [address] [place] [address] documented in this encounter Visit Diagnoses Diagnosis Dysuria documented in this encounter Additional Health Concerns Infection Onset Date Last Indicated Resolved Time COVID-19 Confirmed 07/08/2023 07/08/2023 documented as of this encounter Care Teams Durability Technician Relationship Specialty Start Date End Date Shawna Garcia MD [facility] [address] [place] [address] [address] [place] [address] PCP - General 05/14/07 06/30/11 Mukul Jeong [facility] [address] [place] [address] PCP - General Family Medicine 07/01/11 04/23/17 Abel Mclaughlin [address] [place] [address] PCP - General Family Medicine 04/24/17 documented as of this encounter
--- OUTSIDE RECORDS SUMMARY | 2025-05-09 16:27 | XMS_ITS | Encounter Summary ---
Author Organization [facility] Address [address] [place] [address] Care Team Providers Care Rn Shift Mgr Name Role Phone Shawna Garcia MD Primary Care Provider [phone]- [phone] Mukul Jeong Primary Care Provider [phone] Abel Mclaughlin Primary Care Provider [phone] Encounter Details Date Type Department Care Team (Late st Contact Info) Description 08/30/2010 Orders Only [facility] [address] [place] [address] Ritika Plaza MD [address] [place] [address] Social History Tobacco Use Types Packs/Day Years Used Date Smoking Tobacco: Never Assessed Sex and Gender Information Value Date Recorded Sex Assigned at Not on file Legal Sex Male 8:39 PM EDT Gender Identity Not on file Sexual Orientation Not on file documented as of this encounter Plan of Treatment Not on file documented as of this encounter Procedures * Due to [place] [employer] law, this organization might not be sharing negative HIV tests. Procedure Name Priority Date/Time Associated Diagnosis Comments CXR 2 VIEW AP/PA AND LAT Routine 08/30/2010 4:16 PM EST documented in this encounter Results * Due to [place] [employer] law, this organization might not be sharing negative HIV tests. * CXR 2 VIEW AP/PA AND LAT (08/30/2010 4:16 PM EST) RADIOLOGY REPORT Chest, two views: There are no comparison studies. The lungs are clear. The heart is normal in size. Mediastinum and hilar structures are unremarkable. Impression: Normal study. [facility] RAD Anatomical Region Laterality Modality Other 08/30/2010 4:16 PM EST Narrative 08/30/2010 4:20 PM EST Reason for Study/History: There are no comparison studies. 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 documented in this encounter Additional Health Concerns Infection Onset Date Last Indicated Resolved Time COVID-19 Confirmed 07/08/2023 07/08/2023 documented as of this encounter Care Teams Rn Shift Mgr Relationship Specialty Start Date End Date Shawna Garcia MD [facility] [address] [place] [address] 3 [place] [address] PCP - General 05/14/07 06/30/11 Mukul Jeong [facility] [address] [place] [address] PCP - General Family Medicine 07/01/11 04/23/17 Abel Mclaughlin [address] [place] [phone] PCP - General Family Medicine 04/24/17 documented as of this encounter
--- OUTSIDE RECORDS SUMMARY | 2025-05-09 16:27 | XMS_ITS | Encounter Summary ---
Author Organization [facility] Address [address] [place] [address] Care Team Providers Care Extractions Technician Name Role Phone Shawna Garcia MD Primary Care Provider [phone]- [phone] Mukul Jeong Primary Care Provider [phone] Abel Mclaughlin Primary Care Provider [phone] Encounter Details Date Type Department Care Team (Late st Contact Info) Description 02/21/2008 Orders Only [facility] Urology [address] [facility] [address] [place] [address] Viet Sutherland MD [facility] [address] [facility] [address] [place] [address] Social History Tobacco Use Types Packs/Day Years [...] documented as of this encounter Care Teams Extractions Technician Relationship Specialty Start Date End Date Shawna Garcia MD [facility] [address] [place] [address] [address] [place] [address] PCP - General 05/14/07 06/30/11 Mukul Jeong [address] [address] PCP - General Family Medicine 07/01/11 04/23/17 Abel Mclaughlin [address] [place] [phone] PCP - General Family Medicine 04/24/17 documented as of this encounter
--- OUTSIDE RECORDS SUMMARY | 2025-05-09 16:27 | XMS_ITS | Encounter Summary ---
Author Organization [facility] Address [address] [place] [address] Care Team Providers Care Paralegal Secretary Name Role Phone Shawna Garcia MD Primary Care Provider [phone]- [phone] Mukul Jeong Primary Care Provider [phone] Abel Mclaughlin Primary Care Provider [phone] Encounter Details Date Type Department Care Team (Late st Contact Info) Description 04/20/2009 Orders Only [facility] Urology [address] [facility] [address] [place] [address] Viet Sutherland MD [facility] [address] [facility] [address] [place] [address] Social History Tobacco Use Types Packs/Day Years [...] of this encounter Procedures * Due to [place] state law, this organization might not be sharing negative HIV tests. Procedure Name Priority Date/Time Associated Diagnosis Comments CULTURE, URINE Routine 04/20/2009 Urinary Frequency URINALYSIS, COMPLETE (DIP & MICRO) Routine 04/20/2009 Urinary Frequency documented in this encounter Results * Due to [place] state law, this organization might not be sharing negative HIV tests. * CULTURE, URINE (04/20/2009) URINE CULTURE CLEAN VOID SEE TEXT [facility] Comment: SOURCE: URINE NO GROWTH 04/20/2009 04/20/2009 10: 33 PM EDT Viet Sutherland MD LABORATORY Final Result Performing Organization Address [facility] de Phone Number [facility] [address] [place] [address] * (ABNORMAL) URINALYSIS, COMPLETE (DIP & MICRO) [...] RESULT Final Resu lt Performing Organization Address City/[facility] Co de Phone Number [facility] [address] [place] [address] documented in this encounter Visit Diagnoses Diagnosis Urinary frequency documented in this encounter Additional Health Concerns Infection Onset Date Last Indicated Resolved Time COVID-19 Confirmed 07/08/2023 07/08/2023 documented as of this encounter Care Teams Paralegal Secretary Relationship Specialty Start Date End Date Shawna Garcia MD [facility] [address] [place] [phone] PCP - General 05/14/07 06/30/11 Mukul Jeong [facility] [address] [place] [phone] PCP - General Family Medicine 07/01/11 04/23/17 Abel Mclaughlin [address] [place] [phone] PCP - General Family Medicine 04/24/17 documented as of this encounter
--- OUTSIDE RECORDS SUMMARY | 2025-05-09 16:27 | XMS_ITS | Encounter Summary ---
Author Organization [facility] Address [address] [place] [address] Care Team Providers Care Field Checker Name Role Phone Mukul Jeong Primary Care Provider [phone] Abel Mclaughlin Primary Care Provider [phone] Encounter Details Date Type Department Care Team ([facility] st Contact Info) Description 08/11/2011 Orders Only [facility] Urology [address] [facility] [address] [place] [address] James Brand MD [address] [place] [address] Social History Tobacco Use Types Packs/Day Years [...] this encounter Procedures * Due to [place] [employer] law, this organization might not be sharing negative HIV tests. Procedure Name Priority Date/Time Associated Diagnosis Comments CULTURE, URINE, ROUTINE Routine 08/11/2011 4:35 PM EST Hematuria URINALYSIS, COMPLETE INCLUDES DIPSTICK AND MICROSCOPIC Routine 08/11/2011 4:35 PM EST Hematuria documented in this encounter Results * Due to [place] [employer] law, this organization might not be sharing negative HIV tests. * (ABNORMAL) URINALYSIS, COMPLETE INCLUDES DIPSTICK AND MICROSCOPIC (08/11/2011 4:35 PM EST) Color (Urine) YELLOW YELLOW [facility] Comment:{COLOR {[id number]) Appearance (Urine) CLEAR CLEAR [facility] Comment:{APPEARANCE {[id number]) Specific gravity (Urine) 1.023 1.001 - 1.035 [facility] Comment:{SPECIFIC GRAVITY {[id number]) pH (Urine) 6.0 5.0 - 8.0 [facility] Comment:{PH {[id number]) Glucose (Urine) NEGATIVE NEGATIVE [facility] Comment:{GLUCOSE {[id number]) Bilirubin (Urine) NEGATIVE NEGATIVE [facility] Comment:{BILIRUBIN {[id number]) Ketones (Urine) NEGATIVE NEGATIVE [facility] Comment:{KETONES {[id number]) Hemoglobin (Urine) 2+(A) NEGATIVE [facility] Comment:{OCCULT BLOOD {[id number]) Protein (Urine) NEGATIVE NEGATIVE [facility] Comment:{PROTEIN {[id number]) Nitrite (Urine) NEGATIVE NEGATIVE [facility] Comment:{NITRITE {[id number]) Leukocyte esterase (Urine) NEGATIVE NEGATIVE [facility] Comment:{LEUKOCYTE ESTERASE {[id number]) WBC (Urine) 0-5 < OR = 5 /HPF [facility] Comment:{WBC {[id number]) RBC (Urine Sed) 20-40(A) < OR = 3 /HPF [facility] Comment:{RBC {[id number]) Epithelial cells.squamous (Urine sed) NONE SEEN < OR = 5 /HPF [facility] Comment:{SQUAMOUS EPITHELIAL CELLS {[id number]) Bacteria (Urine) NONE SEEN NONE SEEN /HPF [facility] Comment:{BACTERIA {[id number]) Hyaline casts (Urine sed) NONE SEEN NONE SEEN /LPF [facility] Comment:{HYALINE CAST {[id number]) Service comment 01 SEE NOTE [facility] Comment: {NOTE {[id number]) This urine was analyzed for the presence of WBC, RBC, bacteria, casts, and other formed elements. Only those elements seen were reported. 08/11/2011 4:35 PM EST 08/11/2011 9:39 PM EST Narrative Resulting Agency Comment [id number] James Brand MD LAB SAME DAY RESULT Final Resul t Performing Organization Address City/[facility]/ZIP Co de Phone Number [facility] [address] [place] [address] * CULTURE, URINE, ROUTINE (08/11/2011 4:35 PM EST) Bacteria culture (Urine) SEE NOTE [facility] Comment: {CULTURE, URINE, ROUTINE {[id number]) CULTURE, URINE, ROUTINE MICRO NUMBER: [id number] TEST STATUS: FINAL SPECIMEN SOURCE: URINE SPECIMEN QUALITY: ADEQUATE RESULT: No Growth 08/11/2011 4:35 PM EST 08/11/2011 9:39 PM EST Narrative Resulting Agency Comment [id number] James Brand MD LABORATORY Final Result Performing Organization Address [facility] Co de Phone Number [facility] [address] [place] [address] documented in this encounter Visit Diagnoses Diagnosis Hematuria Hematuria, unspecified documented in this encounter Additional Health Concerns Infection Onset Date Last Indicated Resolved Time COVID-19 Confirmed 07/08/2023 07/08/2023 documented as of this encounter Care Teams Field Checker Relationship Specialty Start Date End Date Mukul Jeong [address] [address] PCP - General Family Medicine 07/01/11 04/23/17 Abel Mclaughlin [address] [place] [phone] PCP - General Family Medicine 04/24/17 documented as of this encounter
--- OUTSIDE RECORDS SUMMARY | 2025-05-09 16:27 | XMS_ITS | Encounter Summary ---
Author Organization [facility] Address [address] [place] [address] Care Team Providers Care Product Communications Manager Name Role Phone Shawna Garcia MD Primary Care Provider [phone] Mukul Jeong Primary Care Provider [phone] Abel Mclaughlin Primary Care Provider Encounter Details Date Type Department Care Team (Late st Contact Info) Description 11/14/2009 Orders Only [facility] Urology [address] [facility] [address] [place] [address] James Brand MD [address] [place] [address] Social History Tobacco Use Types Packs/Day Years [...] this encounter Procedures * Due to [place] state law, this organization might not be sharing negative HIV tests. Procedure Name Priority Date/Time Associated Diagnosis Comments CULTURE, URINE Routine 11/14/2009 URINALYSIS,C&S IF INDICATED Routine 11/14/2009 Urinary frequency Prostatitis documented in this encounter Results * Due to [place] state law, this organization might not be sharing negative HIV tests. * CULTURE, URINE (11/14/2009) URINE CULTURE CLEAN VOID SEE TEXT [facility] Comment: SOURCE: URINE NO GROWTH 11/14/2009 11/14/2009 11: 00 PM EDT James Brand MD LABORATORY Final Result Performing Organization Address [facility] de Phone Number [facility] [address] [place] [phone] * (ABNORMAL) URINALYSIS,C&S IF INDICATED (11/14/2009) COLOR [...] MD LABORATORY Final Result Performing Organization Address [facility] Co de Phone Number [facility] [address] [place] [address] documented in this encounter Visit Diagnoses Diagnosis Urinary frequency Prostatitis Prostatitis, unspecified documented in this encounter Additional Health Concerns Infection Onset Date Last Indicated Resolved Time COVID-19 Confirmed 07/08/2023 07/08/2023 documented as of this encounter Care Teams Product Communications Manager Relationship Specialty Start Date End Date Shawna Garcia MD [facility] [address] [place] [phone] PCP - General 05/14/07 06/30/11 Mukul Jeong [address] [address] PCP - General Family Medicine 07/01/11 04/23/17 Abel Mclaughlin [address] [place] [phone] PCP - General Family Medicine 04/24/17 documented as of this encounter
--- OUTSIDE RECORDS SUMMARY | 2025-05-09 16:27 | XMS_ITS | Encounter Summary ---
Author Organization [facility] Address [address] [place] [address] Care Team Providers Care Manager Hospice Name Role Phone Shawna Garcia MD Primary Care Provider [phone]- [phone] Mukul Jeong Primary Care Provider [phone] Abel Mclaughlin Primary Care Provider Encounter Details Date Type Department Care Team (Late st Contact Info) Description 01/11/2009 Orders Only [facility] Urology [address] [facility] [address] [place] [address] Viet Sutherland MD [facility] [address] [facility] [address] [place] [address] Social History Tobacco Use Types Packs/Day Years Used Date Smoking Tobacco: Never Assessed Sex and Gender Information Value Date Recorded Sex Assigned at Not on file Legal Sex Male 8:39 PM EDT Gender Identity Not on file Sexual Orientation Not on file documented as of this encounter Plan of Treatment Not on file documented as of this encounter Procedures * Due to [place] [employer] law, this organization might not be sharing negative HIV tests. Procedure Name Priority Date/Time Associated Diagnosis Comments CULTURE, URINE Routine 01/11/2009 Post-Void Dribbling Dysuria URINALYSIS, COMPLETE (DIP & MICRO) Routine 01/11/2009 Post-Void Dribbling Dysuria documented in this encounter Results * Due to [place] [employer] law, this organization might not be sharing [...] RESULT Final Resu lt Performing Organization Address [facility] de Phone Number [facility] [address] [place] [address] * CULTURE, URINE (01/11/2009) URINE CULTURE CLEAN VOID SEE TEXT [facility] Comment: SOURCE: URINE NO GROWTH 01/11/2009 01/11/2009 9:0 8 PM EDT us Viet Sutherland MD LABORATORY Final Result Performing Organization Address [facility] Co de Phone Number [facility] [address] [place] [address] documented in this encounter Visit Diagnoses Diagnosis Post-void dribbling Dysuria documented in this encounter Additional Health Concerns Infection Onset Date Last Indicated Resolved Time COVID-19 Confirmed 07/08/2023 07/08/2023 documented as of this encounter Care Teams Manager Hospice Relationship Specialty Start Date End Date Shawna Garcia MD [facility] [address] [place] [phone] PCP - General 05/14/07 06/30/11 Mukul Jeong [address] [phone] PCP - General Family Medicine 07/01/11 04/23/17 Abel Mclaughlin [address] [place] [phone] PCP - General Family Medicine 04/24/17 documented as of this encounter
--- OUTSIDE RECORDS SUMMARY | 2025-05-09 16:27 | XMS_ITS | Encounter Summary ---
Author Organization [facility] Address [address] [place] [address] Care Team Providers Care Ventilating Engineer Name Role Phone Shawna Garcia MD Primary Care Provider [phone]- [phone] Mukul Jeong Primary Care Provider [phone] Abel Mclaughlin Primary Care Provider [phone] Encounter Details Date Type Department Care Team (Late st Contact Info) Description 12/29/2008 Orders Only [facility] Urology [address] [facility] [address] [place] [address] Juana Johnson NP Social History Tobacco Use [...] of this encounter Procedures * Due to [place] state law, this organization might not be [...] in this encounter Results * Due to [place] state law, this organization might not be sharing negative HIV tests. * (ABNORMAL) URINALYSIS,C&S IF INDICATED (12/29/2008) Pathologist [facility] COLOR (URINE) YELLOW YELLOW APPEARANCE (URINE) CLEAR [...] (CAN BE USED FOR TUMOR MARKER) (12/29/2008) [facility] HCG, Total, Quantitative < 5 5 MIU/ML Comment: MALE REFERENCE RANGE: < 5 MIU/ML VALUES FROM DIFFERENT ASSAY METHODS MAY VARY. THE USE OF THIS ASSAY TO MONITOR OR TO DIAGNOSE PATIENTS WITH CANCER OR ANY CONDITION UNRELATED TO HAS NOT BEEN CLEARED OR APPROVED BY THE FDA OR THE BLOCK TRADER OF THIS ASSAY. 12/29/2008 12/29/2008 9:1 3 PM EDT Narrative 12/30/2008 5:08 AM EDT Report Comments: TUMOR MARKER FOR CA TUMOR MARKER FOR CA Juana Johnson NP LAB SAME DAY RESULT Final Result * LDH (12/29/2008) [facility] LDH 137 100 - 220 U/L 12/29/2008 12/29/2008 9:1 3 PM EDT Narrative 12/30/2008 4:12 AM EDT Report Comments: TUMOR MARKER FOR CA TUMOR MARKER FOR CA Juana Johnson NP LABORATORY Final Result * ALPHA FETOPROTEIN (AFP) TUMOR MARKER (12/29/2008) Pathologist [facility] AFP (TUMOR MARKER) 1.6 0 - 6.0 NG/ML Comment: THIS TEST WAS PERFORMED USING THE SIEMENS ([employer]) CHEMILUMINESCENT METHOD. VALUES OBTAINED FROM DIFFERENT ASSAY [...] documented as of this encounter Care Teams Ventilating Engineer Relationship Specialty Start Date End Date Shawna Garcia MD [facility] [address] [place] [phone] PCP - General 05/14/07 06/30/11 Mukul Jeong [facility] [address] [place] [address] PCP - General Family Medicine 07/01/11 04/23/17 Abel Mclaughlin [address] [place] [phone] PCP - General Family Medicine 04/24/17 documented as of this encounter
--- OUTSIDE RECORDS SUMMARY | 2025-05-09 16:27 | XMS_ITS | Encounter Summary ---
Author Organization [facility] Address [address] [place] [address] Care Team Providers Care Leather Scrubber Name Role Phone Shawna Garcia MD Primary Care Provider [phone]- [phone] Mukul Jeong Primary Care Provider [phone] Abel Mclaughlin Primary Care Provider [phone] Encounter Details Date Type Department Care Team (Late st Contact Info) Description 09/16/2010 Orders Only [facility] Urology [address] [facility] [address] [place] [address] James Brand MD [address] [place] [address] Social History Tobacco Use Types Packs/Day Years [...] this encounter Procedures * Due to [place] [employer] law, this organization might not be sharing [...] MD LABORATORY Final Result Performing Organization Address [facility] de Phone Number [facility] [address] [place] [address] * (ABNORMAL) URINALYSIS,C&S IF INDICATED (09/16/2010) COLOR [...] MD LABORATORY Final Result Performing Organization Address [facility] Co de Phone Number [facility] [address] [place] [address] documented in this encounter Visit Diagnoses Diagnosis Dysuria documented in this encounter Additional Health Concerns Infection Onset Date Last Indicated Resolved Time COVID-19 Confirmed 07/08/2023 07/08/2023 documented as of this encounter Care Teams Leather Scrubber Relationship Specialty Start Date End Date Shawna Garcia MD [facility] [address] [place] [address] 3 [place] [phone] PCP - General 05/14/07 06/30/11 Mukul Jeong [address] [phone] PCP - General Family Medicine 07/01/11 04/23/17 Abel Mclaughlin [address] [place] [phone] PCP - General Family Medicine 04/24/17 documented as of this encounter
--- OUTSIDE RECORDS SUMMARY | 2025-05-09 16:27 | XMS_ITS | Encounter Summary ---
Author Organization [facility] Address [address] [place] [address] Care Team Providers Care Capital Campaign Fundraiser Name Role Phone Shawna Garcia MD Primary Care Provider [phone] Mukul Jeong Primary Care Provider [phone] Abel Mclaughlin Primary Care Provider [phone] Encounter Details Date Type Department Care Team (Late st Contact Info) Description 02/25/2009 Orders Only [facility] Urology [address] [facility] [address] [place] [address] Bhaskar Lee MD Medications Social History Tobacco [...] documented as of this encounter Care Teams Capital Campaign Fundraiser Relationship Specialty Start Date End Date Shawna Garcia MD [facility] [address] [place] [address] [address] [place] [address] PCP - General 05/14/07 06/30/11 Mukul Jeong [facility] [address] [place] [address] PCP - General Family Medicine 07/01/11 04/23/17 Abel Mclaughlin [address] [place] [phone] PCP - General Family Medicine 04/24/17 documented as of this encounter
--- OUTSIDE RECORDS SUMMARY | 2025-05-09 16:27 | XMS_ITS | Encounter Summary ---
Author Organization [facility] Address [address] [place] [address] Care Team Providers Care Reinsurance Claims Analyst Name Role Phone Shawna Garcia MD Primary Care Provider [phone] Mukul Jeong Primary Care Provider [phone] Abel Mclaughlin Primary Care Provider [phone] Encounter Details Date Type Department Care Team (Late st Contact Info) Description 12/17/2010 Orders Only [facility] Urology [address] [facility] [address] [place] [address] James Brand MD [address] [place] [address] Social History Tobacco Use Types Packs/Day Years [...] this encounter Procedures * Due to [place] [employer] law, this organization might not be sharing [...] MD LABORATORY Final Result Performing Organization Address [facility] Co de Phone Number [facility] [address] [place] [address] * (ABNORMAL) URINALYSIS,C&S IF INDICATED (12/17/2010) COLOR [...] MD LABORATORY Final Result Performing Organization Address [facility] Co de Phone Number [facility] [address] [place] [address] documented in this encounter Visit Diagnoses Diagnosis Dysuria documented in this encounter Additional Health Concerns Infection Onset Date Last Indicated Resolved Time COVID-19 Confirmed 07/08/2023 07/08/2023 documented as of this encounter Care Teams Reinsurance Claims Analyst Relationship Specialty Start Date End Date Shawna Garcia MD [facility] [address] [place] [phone] PCP - General 05/14/07 06/30/11 Mukul Jeong [address] [phone] PCP - General Family Medicine 07/01/11 04/23/17 Abel Mclaughlin [address] [place] [phone] PCP - General Family Medicine 04/24/17 documented as of this encounter
--- OUTSIDE RECORDS SUMMARY | 2025-05-09 16:27 | XMS_ITS | Encounter Summary ---
Author Organization [facility] Address [address] [place] [address] Care Team Providers Care Wreath Maker Name Role Phone Shawna Garcia MD Primary Care Provider [phone] Mukul Jeong Primary Care Provider Abel Mclaughlin Primary Care Provider [phone] Encounter Details Date Type Department Care Team (Late st Contact Info) Description 03/11/2011 Orders Only [facility] Urology [address] [facility] [address] [place] [address] James Brand MD [address] [place] [address] Social History Tobacco Use Types Packs/Day Years [...] NOTE [facility] Comment: {CULTURE, URINE, ROUTINE {[id number]) CULTURE, URINE, ROUTINE MICRO NUMBER: [id number] TEST STATUS: FINAL SPECIMEN SOURCE: URINE SPECIMEN QUALITY: ADEQUATE RESULT: No Growth 03/11/2011 10:4 0 AM EDT 03/11/2011 8:42 PM EDT Narrative Resulting Agency Comment [id number] us James Brand MD LABORATORY Final Result [facility] [address] [place] [address] * (ABNORMAL) URINALYSIS, COMPLETE INCLUDES DIPSTICK AND MICROSCOPIC (03/11/2011 10:40 AM EDT) Color (Urine) YELLOW YELLOW [facility] Comment:{COLOR {[id number]) Appearance (Urine) CLEAR CLEAR [facility] Comment:{APPEARANCE {[id number]) Specific gravity (Urine) 1.021 1.001 - 1.035 [facility] Comment:{SPECIFIC GRAVITY {[id number]) pH (Urine) 6.0 5.0 - 8.0 [facility] Comment:{PH {[id number]) Glucose (Urine) NEGATIVE NEGATIVE [facility] Comment:{GLUCOSE {[id number]) Bilirubin (Urine) NEGATIVE NEGATIVE [facility] Comment:{BILIRUBIN {[id number]) Ketones (Urine) NEGATIVE NEGATIVE [facility] Comment:{KETONES {[id number]) Hemoglobin (Urine) 3+(A) NEGATIVE [facility] Comment:{OCCULT BLOOD {[id number]) Protein (Urine) NEGATIVE NEGATIVE [facility] Comment:{PROTEIN {[id number]) Nitrite (Urine) NEGATIVE NEGATIVE [facility] Comment:{NITRITE {[id number]) Leukocyte esterase (Urine) NEGATIVE NEGATIVE [facility] Comment:{LEUKOCYTE ESTERASE {[id number]) WBC (Urine) 0-5 < OR = 5 /HPF [facility] Comment:{WBC {[id number]) RBC (Urine Sed) 20-40(A) < OR = 3 /HPF [facility] Comment:{RBC {[id number]) Epithelial cells.squamous (Urine sed) NONE SEEN < OR = 5 /HPF [facility] Comment:{SQUAMOUS EPITHELIAL CELLS {[id number]) Bacteria (Urine) FEW(A) NONE SEEN /HPF [facility] Comment:{BACTERIA {[id number]) Hyaline casts (Urine sed) NONE SEEN NONE SEEN /LPF [facility] Comment:{HYALINE CAST {[id number]) Service comment 01 SEE NOTE [facility] Comment: {NOTE {[id number]) This urine was analyzed for the presence of WBC, RBC, bacteria, casts, and other formed elements. Only those elements seen were reported. 03/11/2011 10:4 0 AM EDT 03/11/2011 8:42 PM EDT Narrative Resulting Agency Comment [id number] us James Brand MD LAB SAME DAY RESULT Final Resul t [facility] [address] [place] [address] documented in this encounter Visit Diagnoses Diagnosis UTI (urinary tract infection)- Primary Urinary tract infection, site not specified documented in this encounter Additional Health Concerns Infection Onset Date Last Indicated Resolved Time COVID-19 Confirmed 07/08/2023 07/08/2023 documented as of this encounter Care Teams Wreath Maker Relationship Specialty Start Date End Date Shawna Garcia MD [facility] [address] [place] [address] 3 [place] [address] PCP - General 05/14/07 06/30/11 Mukul Jeong [address] [address] PCP - General Family Medicine 07/01/11 04/23/17 Abel Mclaughlin [address] [place] [phone] PCP - General Family Medicine 04/24/17 documented as of this encounter
--- OUTSIDE RECORDS SUMMARY | 2025-05-09 16:27 | XMS_ITS | Encounter Summary ---
Author Organization [facility] Address [address] [place] [address] Care Team Providers Care Pruner Name Role Phone Shawna Garcia MD Primary Care Provider [phone] Mukul Jeong Primary Care Provider [phone] Abel Mclaughlin Primary Care Provider [phone] Reason for Visit * Reason Onset Date Comments Refill Request 08/22/2009 Encounter Details Date Type Department Care Team (Late st Contact Info) Description 08/22/2009 Refill [facility] Urology [address] 123 [facility] 210 [place] [address] Oma Adam MA [address] [place] [address] Refill Request Social History Tobacco Use Types [...] documented as of this encounter Care Teams Pruner Relationship Specialty Start Date End Date Shawna Garcia MD [facility] [address] [place] [phone] PCP - General 05/14/07 06/30/11 Mukul Jeong REPLACED BY [facility] [address] [place] [address] PCP - General Family Medicine 07/01/11 04/23/17 Abel Mclaughlin [address] [place] [phone] PCP - General Family Medicine 04/24/17 documented as of this encounter
--- OUTSIDE RECORDS SUMMARY | 2025-05-09 16:27 | XMS_ITS | Encounter Summary ---
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 on file Not on file documented as of this encounter Plan of Treatment Upcoming Encounters Date Type Department Care Team (Late st Contact Info) Description 05/10/2025 1:00 PM EDT Hospital Encounter [facility] [address] [place] [address] 05/24/2025 10:00 AM EDT Office Visit [address] Department 100 [facility] [address] [place] [address] Abel Mclaughlin III, MD [address] [place] [address] 12/06/2025 11:40 AM EDT Follow-Up [facility] 4th floor Cardiology Medicine [address] [place] [address] Cake Decorator: Eusebia Vergara MD PhD [address] [place] [address] documented as of this encounter Visit Diagnoses Not on filedocumented in this encounter Care Teams Academic Coordinator Relationship Specialty Start Date End Date Abel Mclaughlin III, MD [address] [place] [address] PCP - General 02/12/17 documented as of this encounter
--- OUTSIDE RECORDS SUMMARY | 2025-05-09 16:27 | XMS_ITS | Encounter Summary ---
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 Not on file documented as of this encounter Plan of Treatment Upcoming Encounters Date Type Department Care Team (Late st Contact Info) Description 05/10/2025 1:00 PM EDT Hospital Encounter [facility] [address] [place] [address] 05/24/2025 10:00 AM EDT Office Visit [address] Department [address] [place] [address] [address] [place] [address] Abel Mclaughlin III, MD [address] [place] [address] 12/06/2025 11:40 AM EDT Follow-Up [facility] 4th floor Cardiology Medicine [address] [place] [address] Genetics Physician: Eusebia Vergara MD PhD [address] [place] [phone] documented as of this encounter Visit Diagnoses Not on filedocumented in this encounter Care Teams Corporation Officer Relationship Specialty Start Date End Date Abel Mclaughlin III, MD [address] [place] [address] PCP - General 02/12/17 documented as of this encounter
--- OUTSIDE RECORDS SUMMARY | 2025-05-09 16:27 | XMS_ITS | Encounter Summary ---
Author Organization [facility] Address [address] [place] [address] Care Team Providers Care Driver'S Education Instructor Name Role Phone Mukul Jeong Primary Care Provider [phone] Abel Mclaughlin Primary Care Provider [phone] Encounter Details Date Type Department Care Team ([facility] st Contact Info) Description 02/03/2012 Orders Only [facility] Urology [address] [facility] [address] [place] [address] James Brand MD [address] [place] [address] Social History Tobacco Use Types Packs/Day Years [...] this encounter Procedures * Due to [place] [employer] law, this organization might not be sharing negative HIV tests. Procedure Name Priority Date/Time Associated Diagnosis Comments URINALYSIS, MICROSCOPIC WITH REFLEX CULTURE Routine 02/03/2012 9:52 AM EDT Urinary frequency documented in this encounter Results * Due to [place] [employer] law, this organization might not be sharing negative HIV tests. * URINALYSIS, MICROSCOPIC WITH REFLEX CULTURE (02/03/2012 9:52 AM EDT) WBC (Urine) NONE SEEN < OR = 5 /HPF [facility] Comment:{WBC {[id number]) RBC (Urine Sed) 0-3 < OR = 3 /HPF [facility] Comment:{RBC {[id number]) Epithelial cells.squamous (Urine sed) NONE SEEN < OR = 5 /HPF [facility] Comment:{SQUAMOUS EPITHELIAL CELLS {[id number]) Bacteria (Urine) NONE SEEN NONE SEEN /HPF [facility] Comment:{BACTERIA {[id number]) Hyaline casts (Urine sed) NONE SEEN NONE SEEN /LPF [facility] Comment:{HYALINE CAST {[id number]) 02/03/2012 9:52 AM EDT 02/03/2012 2:48 PM EDT Narrative Resulting Agency Comment [id number] us James Brand MD LABORATORY Final Result Performing Organization Address City/State/[facility] Co de Phone Number [facility] [address] [place] [address] documented in this encounter Visit Diagnoses Diagnosis Urinary frequency documented in this encounter Additional Health Concerns Infection Onset Date Last Indicated Resolved Time COVID-19 Confirmed 07/08/2023 07/08/2023 documented as of this encounter Care Teams Driver'S Education Instructor Relationship Specialty Start Date End Date Mukul Jeong [facility] [address] [place] [address] PCP - General Family Medicine 07/01/11 04/23/17 Abel Mclaughlin [address] [place] [phone] PCP - General Family Medicine 04/24/17 documented as of this encounter
--- OUTSIDE RECORDS SUMMARY | 2025-05-09 16:27 | XMS_ITS | Encounter Summary ---
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 Please call back at [phone] documented in this encounter Plan of Treatment Upcoming Encounters Date Type Department Care Team (Late st Contact Info) Description 05/10/2025 1:00 PM EDT Hospital Encounter [facility] [address] [place] [address] 05/24/2025 10:00 AM EDT Office Visit [address] Department [address] [place] [phone] Abel Mclaughlin III, MD [address] [place] [address] 12/06/2025 11:40 AM EDT Follow-Up [facility] Building 4th floor Cardiology Medicine [address] [place] [address] Wick Tender: Eusebia Vergara MD PhD [address] [place] [address] documented as of this encounter Visit Diagnoses Not on filedocumented in this encounter Care Teams Bobbin Fixer Relationship Specialty Start Date End Date Abel Mclaughlin III, MD [address] [place] [address] PCP - General 02/12/17 documented as of this encounter
--- OUTSIDE RECORDS SUMMARY | 2025-05-09 16:27 | XMS_ITS | Encounter Summary ---
Author Organization [facility] Address [address] [place] [address] Care Team Providers Care Supervisor Instant Potato Processing Name Role Phone Shawna Garcia MD Primary Care Provider [phone] Mukul Jeong Primary Care Provider [phone] Abel Mclaughlin Primary Care Provider [phone] Encounter Details Date Type Department Care Team (Late st Contact Info) Description 01/07/2011 Orders Only [facility] Urology [address] [facility] [address] [place] [address] James Brand MD [address] [place] [address] Social History Tobacco Use Types Packs/Day Years [...] this encounter Procedures * Due to [place] [employer] law, this organization might not be sharing negative HIV tests. Procedure Name Priority Date/Time Associated Diagnosis Comments URINALYSIS,C&S IF INDICATED Routine 01/07/2011 Dysuria documented in this encounter Results * Due to [place] [employer] law, this organization might not be sharing [...] Co de Phone Number [facility] [address] [place] [address] documented in this encounter Visit Diagnoses Diagnosis Dysuria documented in this encounter Additional Health Concerns Infection Onset Date Last Indicated Resolved Time COVID-19 Confirmed 07/08/2023 07/08/2023 documented as of this encounter Care Teams Supervisor Instant Potato Processing Relationship Specialty Start Date End Date Shawna Garcia MD [facility] [address] [place] [phone] PCP - General 05/14/07 06/30/11 Mukul Jeong [address] [address] PCP - General Family Medicine 07/01/11 04/23/17 Abel Mclaughlin [address] [place] [phone] PCP - General Family Medicine 04/24/17 documented as of this encounter
--- OUTSIDE RECORDS SUMMARY | 2025-05-09 16:27 | XMS_ITS | Encounter Summary ---
Author Organization [facility] Address [address] [place] [address] Care Team Providers Care Tester [employer]iconductor Packages Name Role Phone Mukul Jeong Primary Care Provider [phone] Abel Mclaughlin Primary Care Provider [phone] Encounter Details Date Type Department Care Team ([facility] st Contact Info) Description 07/09/2011 Orders Only [facility] [address] [place] [address] James Brand MD [address] [place] [address] Social History Tobacco Use Types Packs/Day Years [...] this encounter Procedures * Due to [place] [employer] law, this organization might not be sharing negative HIV tests. Procedure Name Priority Date/Time Associated Diagnosis Comments URINALYSIS DIP W/ REFLEX TO MICROSCOPIC+CULTURE Routine 07/09/2011 4:33 PM EST Prostatitis CULTURE, URINE, ROUTINE Routine 07/09/2011 4:33 PM EST documented in this encounter Results * Due to [place] [employer] law, this organization might not be sharing negative HIV tests. * CULTURE, URINE, ROUTINE (07/09/2011 4:33 PM EST) Bacteria culture (Urine) SEE NOTE [facility] Comment: {CULTURE, URINE, ROUTINE {[id number]) CULTURE, URINE, ROUTINE MICRO NUMBER: [id number] TEST STATUS: FINAL SPECIMEN SOURCE: URINE SPECIMEN QUALITY: ADEQUATE RESULT: No Growth We received a preserved urine culture transport tube and performed a urine culture. If this is not what you intended to order, please contact your local retail client solutions consultant immediately so that we can adjust our billing appropriately. You may also inquire about alternative or additional testing. 07/09/2011 4:33 PM EST 07/10/2011 1:17 AM EST us James Brand MD LABORATORY Final Result [facility] [address] [place] [address] * (ABNORMAL) URINALYSIS DIP W/ REFLEX TO MICROSCOPIC+CULTURE (07/09/2011 4:33 PM EST) Color (Urine) YELLOW YELLOW [facility] Comment:{COLOR {[id number]) Appearance (Urine) CLEAR CLEAR [facility] Comment:{APPEARANCE {[id number]) Specific gravity (Urine) 1.022 1.001 - 1.035 [facility] Comment:{SPECIFIC GRAVITY {[id number]) pH (Urine) 7.5 5.0 - 8.0 [facility] Comment:{PH {[id number]) Glucose (Urine) NEGATIVE NEGATIVE [facility] Comment:{GLUCOSE {[id number]) Bilirubin (Urine) NEGATIVE NEGATIVE [facility] Comment:{BILIRUBIN {[id number]) Ketones (Urine) NEGATIVE NEGATIVE [facility] Comment:{KETONES {[id number]) Hemoglobin (Urine) 2+(A) NEGATIVE [facility] Comment:{OCCULT BLOOD {[id number]) Protein (Urine) NEGATIVE NEGATIVE [facility] Comment:{PROTEIN {[id number]) Nitrite (Urine) NEGATIVE NEGATIVE [facility] Comment:{NITRITE {[id number]) Leukocyte esterase (Urine) NEGATIVE NEGATIVE [facility] Comment:{LEUKOCYTE ESTERASE {[id number]) 07/09/2011 4:33 PM EST 07/10/2011 1:17 AM EST Narrative Resulting Agency Comment [id number] James Brand MD LABORATORY Final Result Performing Organization Address City/State/[facility] Co de Phone Number [facility] [address] [place] [address] documented in this encounter Visit Diagnoses Diagnosis Prostatitis Prostatitis, unspecified documented in this encounter Additional Health Concerns Infection Onset Date Last Indicated Resolved Time COVID-19 Confirmed 07/08/2023 07/08/2023 documented as of this encounter Care Teams Tester Semiconductor Packages Relationship Specialty Start Date End Date Mukul Jeong [address] [address] PCP - General Family Medicine 07/01/11 04/23/17 Abel Mclaughlin [address] [place] [phone] PCP - General Family Medicine 04/24/17 documented as of this encounter
--- OUTSIDE RECORDS SUMMARY | 2025-05-09 16:27 | XMS_ITS | Encounter Summary ---
Author Organization [facility] Address [address] [place] [address] Care Team Providers Care Extractor Loader And Unloader Name Role Phone Shawna Garcia MD Primary Care Provider [phone] Mukul Jeong Primary Care Provider [phone] Abel Mclaughlin Primary Care Provider [phone] Encounter Details Date Type Department Care Team (Late st Contact Info) Description 06/11/2010 Orders Only [facility] Urology [address] [facility] [address] [place] [address] James Brand MD [address] [place] [address] Social History Tobacco Use Types Packs/Day Years Used Date Smoking Tobacco: Never Assessed Sex and Gender Information Value Date Recorded Sex Assigned at Not on file Legal Sex Male 8:39 PM EDT Gender Identity Not on file Sexual Orientation Not on file documented as of this encounter Plan of Treatment Not on file documented as of this encounter Procedures * Due to [place] [employer] law, this organization might not be sharing negative HIV tests. Procedure Name Priority Date/Time Associated Diagnosis Comments URINALYSIS,C&S IF INDICATED Routine 06/11/2010 Dysuria documented in this encounter Results * Due to [place] [employer] law, this organization might not be sharing [...] MD LABORATORY Final Result Performing Organization Address City/State/[facility] Co de Phone Number [facility] [address] [place] [address] documented in this encounter Visit Diagnoses Diagnosis Dysuria documented in this encounter Additional Health Concerns Infection Onset Date Last Indicated Resolved Time COVID-19 Confirmed 07/08/2023 07/08/2023 documented as of this encounter Care Teams Extractor Loader And Unloader Relationship Specialty Start Date End Date Shawna Garcia MD [facility] [address] [place] [phone] PCP - General 05/14/07 06/30/11 Mukul Jeong [facility] [address] [place] [phone] PCP - General Family Medicine 07/01/11 04/23/17 Abel Mclaughlin [address] [place] [phone] PCP - General Family Medicine 04/24/17 documented as of this encounter
--- OUTSIDE RECORDS SUMMARY | 2025-05-09 16:27 | XMS_ITS | Encounter Summary ---
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 Not on file Not on file documented as of this encounter Plan of Treatment Upcoming Encounters Date Type Department Care Team (Late st Contact Info) Description 05/10/2025 1:00 PM EDT Hospital Encounter [facility] CT [address] [place] [address] 05/24/2025 10:00 AM EDT Office Visit [address] [place] [address] Abel Mclaughlin III, MD [address] [place] [address] 12/06/2025 11:40 AM EDT Follow-Up [facility] 4th floor Cardiology Medicine [address] [place] [address] Box Sealing Inspector: Eusebia Vergara MD PhD [address] [place] [phone] documented as of this encounter Visit Diagnoses Not on filedocumented in this encounter Care Teams Pulverizer Relationship Specialty Start Date End Date Abel Mclaughlin III, MD [address] [place] [address] PCP - General 02/12/17 documented as of this encounter
--- OUTSIDE RECORDS SUMMARY | 2025-05-09 16:27 | XMS_ITS | Encounter Summary ---
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 Reminded of appt tomorrow 05/[address] Avoid caffeine today and tomorrow. Address and phone number to [facility] IR dept left on VM. documented in this encounter Plan of Treatment Upcoming Encounters Date Type Department Care Team (Late st Contact Info) Description 05/10/2025 1:00 PM EDT Hospital Encounter [facility] [address] [place] [address] 05/24/2025 10:00 AM EDT Office Visit [address] [place] [address] Abel Mclaughlin III, MD [address] [place] [address] 12/06/2025 11:40 AM EDT Follow-Up [facility] Building 4th floor Cardiology Medicine [address] [place] [address] Orchard Hand: Eusebia Vergara MD PhD [address] [place], [place] [phone] documented as of this encounter Visit Diagnoses Not on filedocumented in this encounter Care Teams Agricultural Education Instructor Relationship Specialty Start Date End Date Abel Mclaughlin III, MD [address] [place] [address] PCP - General 02/12/17 documented as of this encounter
--- OUTSIDE RECORDS SUMMARY | 2025-05-09 16:27 | XMS_ITS | Encounter Summary ---
Author Organization [facility] Address [address] [place] [address] Care Team Providers Care Scalder Name Role Phone Abel Mclaughlin Primary Care Provider [phone] Reason for Visit * Reason Comments E-prescribing Refill Request Encounter Details Date Type Department Care Team (Late st Contact Info) Description 01/09/2025 Refill [facility] [address] [place] [address] Alistair Casas, [employer] [address] [place] [address] E-prescribing Refill Request Social History Tobacco Use Types [...] encounter Miscellaneous Notes * Telephone Encounter - Kathleen Romero RN - 01/09/2025 8:35 AM EDT Patient should contact PCP for refill. documented in this encounter Plan of Treatment Not on file documented as of this encounter Visit Diagnoses Diagnosis Dysuria documented in this encounter Additional Health Concerns Infection Onset Date Last Indicated Resolved Time COVID-19 Confirmed 07/08/2023 07/08/2023 documented as of this encounter Care Teams Scalder Relationship Specialty Start Date End Date Abel Mclaughlin [address] [place] [phone] PCP - General Family Medicine 04/24/17 documented as of this encounter
--- OUTSIDE RECORDS SUMMARY | 2025-05-09 16:27 | XMS_ITS | Encounter Summary ---
Author Organization [facility] Address [address] [place] [address] Care Team Providers Care Boiler Assistant Operator Name Role Phone Shawna Garcia MD Primary Care Provider [phone] Mukul Jeong Primary Care Provider [phone] Abel Mclaughlin Primary Care Provider [phone] Encounter Details Date Type Department Care Team (Late st Contact Info) Description 12/20/2009 Orders Only [facility] Urology [address] [facility] [address] [place] [address] James Brand MD [address] [place] [address] Social History Tobacco Use Types Packs/Day Years [...] of this encounter Procedures * Due to [place] state law, this organization might not be sharing negative HIV tests. Procedure Name Priority Date/Time Associated Diagnosis Comments URINALYSIS,C&S IF INDICATED Routine 12/20/2009 Dysuria Pain in joint, pelvic region and thigh documented in this encounter Results * Due to [place] state law, this organization might not [...] MD LABORATORY Final Result Performing Organization Address [facility]/State/[facility] Co de Phone Number [facility] [address] [place] [address] documented in this encounter Visit Diagnoses Diagnosis Dysuria Pain in joint, pelvic region and thigh documented in this encounter Additional Health Concerns Infection Onset Date Last Indicated Resolved Time COVID-19 Confirmed 07/08/2023 07/08/2023 documented as of this encounter Care Teams Boiler Assistant Operator Relationship Specialty Start Date End Date Shawna Garcia MD [facility] [address] [place] [address] [address] [place] [phone] PCP - General 05/14/07 06/30/11 Muk[address] Jeong [address] [phone] PCP - General Family Medicine 07/01/11 04/23/17 Abel Mclaughlin [address] [place] [phone] PCP - General Family Medicine 04/24/17 documented as of this encounter
--- OUTSIDE RECORDS SUMMARY | 2025-05-09 16:27 | XMS_ITS | Encounter Summary ---
Author Organization [facility] Address [address] [place] [address] Care Team Providers Care Boat Cleaner Name Role Phone Shawna Garcia MD Primary Care Provider [phone] Mukul Jeong Primary Care Provider [phone] Abel Mclaughlin Primary Care Provider Encounter Details Date Type Department Care Team (Late st Contact Info) Description 10/23/2009 Orders Only [facility] Urology [address] [facility] [address] [place] [address] James Brand MD [address] [place] [address] Social History Tobacco Use Types Packs/Day Years Used Date Smoking Tobacco: Never Assessed Sex and Gender Information Value Date Recorded Sex Assigned at Not on file Legal Sex Male 8:39 PM EDT Gender Identity Not on file Sexual Orientation Not on file documented as of this encounter Plan of Treatment Not on file documented as of this encounter Procedures * Due to [place] law, this organization might not be sharing negative HIV tests. Procedure Name Priority Date/Time Associated Diagnosis Comments CULTURE, URINE Routine 10/23/2009 URINALYSIS,C&S IF INDICATED Routine 10/23/2009 Dysuria Prostatism documented in this encounter Results * Due to [place] law, this organization might not be sharing negative HIV tests. * CULTURE, URINE (10/23/2009) Pathologist [facility] URINE CULTURE CLEAN VOID SEE TEXT [facility] Comment: SOURCE: URINE NO GROWTH 10/23/2009 10/23/2009 9:4 7 PM EDT James Brand MD LABORATORY Final Result Performing Organization Address [facility]/ZIP Co de Phone Number [facility] [address] [place] [address] * (ABNORMAL) URINALYSIS,C&S IF INDICATED (10/23/2009) COLOR [...] MD LABORATORY Final Result Performing Organization Address City/[facility]/ZIP Co de Phone Number [facility] [address] [place] [address] documented in this encounter Visit Diagnoses Diagnosis Dysuria Prostatism Unspecified hyperplasia of prostate without urinary obstruction and other lower urinary tract symptoms (LUTS) documented in this encounter Additional Health Concerns Infection Onset Date Last Indicated Resolved Time COVID-19 Confirmed 07/08/2023 07/08/2023 documented as of this encounter Care Teams Boat Cleaner Relationship Specialty Start Date End Date Shawna Garcia MD [facility] [address] [place] [phone] PCP - General 05/14/07 06/30/[address] [phone] PCP - General Family Medicine 07/01/11 04/23/17 Abel Mclaughlin [address] [place] [phone] PCP - General Family Medicine 04/24/17 documented as of this encounter
--- OUTSIDE RECORDS SUMMARY | 2025-05-09 16:27 | XMS_ITS | Encounter Summary ---
Author Organization [facility] Address [address] [place] [address] Care Team Providers Care Metal Tile Setter Name Role Phone Shawna Garcia MD Primary Care Provider [phone] Mukul Jeong Primary Care Provider [phone] Abel Mclaughlin Primary Care Provider Encounter Details Date Type Department Care Team (Late st Contact Info) Description 07/18/2009 Orders Only [facility] General Vascular Surgery [address] [facility] [address] [place] [address] Viet Sutherland MD [facility] [address] [facility] [address] [place] [address] Social History Tobacco Use Types Packs/Day Years Used Date Smoking Tobacco: Never Assessed Sex and Gender Information Value Date Recorded Sex Assigned at Not on file Legal Sex Male 8:39 PM EDT Gender Identity Not on file Sexual Orientation Not on file documented as of this encounter Progress Notes * Juana Johnson NP - 07/19/2009 10:15 AM ESTQuick Note: . * Mmia Banda - 07/19/2009 10:12 AM ESTQuick Note: [...] this encounter Results * Due to [place] [employer] [employer] law, this organization might not be sharing [...] MD LABORATORY Final Result Performing Organization Address City/State/[facility] Co de Phone Number [facility] [address] [place] [address] documented in this encounter Visit Diagnoses Diagnosis UTI (urinary tract infection) Urinary tract infection, site not specified documented in this encounter Additional Health Concerns Infection Onset Date Last Indicated Resolved Time COVID-19 Confirmed 07/08/2023 07/08/2023 documented as of this encounter Care Teams Metal Tile Setter Relationship Specialty Start Date End Date Shawna Garcia MD [facility] [address] [place] [phone] PCP - General 05/14/07 06/30/11 Mukul Jeong [address] [phone] PCP - General Family Medicine 07/01/11 04/23/17 Abel Mclaughlin [address] [place] [phone] PCP - General Family Medicine 04/24/17 documented as of this encounter
--- OUTSIDE RECORDS SUMMARY | 2025-05-09 16:27 | XMS_ITS | Encounter Summary ---
Author Organization [facility] Address [address] [place] [address] Care Team Providers Care Integration Technician Name Role Phone Shawna Garcia MD Primary Care Provider [phone] Mukul Jeong Primary Care Provider [phone] Abel Mclaughlin Primary Care Provider [phone] Encounter Details Date Type Department Care Team (Late st Contact Info) Description 07/17/[address] [facility] General Vascular Surgery [address] [facility] [address] [place] [address] Mima Banda LVN LPN Social History Tobacco [...] documented as of this encounter Care Teams Integration Technician Relationship Specialty Start Date End Date Shawna Garcia MD [facility] [address] [place] [address] [address] [place] [address] PCP - General 05/14/07 06/30/11 Mukul Jeong [facility] [address] [place] [address] PCP - General Family Medicine 07/01/11 04/23/17 Abel Mclaughlin [address] [place] [phone] PCP - General Family Medicine 04/24/17 documented as of this encounter
--- OUTSIDE RECORDS SUMMARY | 2025-05-09 16:27 | XMS_ITS | Encounter Summary ---
Author Organization [facility] Address [address] [place] [address] Care Team Providers Care Filter Operator Name Role Phone Shawna Garcia MD Primary Care Provider [phone] Mukul Jeong Primary Care Provider [phone] Abel Mclaughlin Primary Care Provider [phone] Reason for Visit * Reason Onset Date Comments Refill Request 05/09/2009 Encounter Details Date Type Department Care Team (Late st Contact Info) Description 05/09/2009 Refill [facility] Urology [address] [facility] 210 [place] [address] Oma Adam MA [address] [place] [address] Refill Request Social History Tobacco Use Types [...] documented as of this encounter Care Teams Filter Operator Relationship Specialty Start Date End Date Shawna Garcia MD [facility] [address] [place] [phone] PCP - General 05/14/07 06/30/11 Mukul Jeong [facility] [address] [place] [phone] PCP - General Family Medicine 07/01/11 04/23/17 Abel Mclaughlin [address] [place] [phone] PCP - General Family Medicine 04/24/17 documented as of this encounter
--- OUTSIDE RECORDS SUMMARY | 2025-05-09 16:27 | XMS_ITS | Encounter Summary ---
Author Organization [facility] Address [address] [place] [address] Care Team Providers Care Greenhouse Specialist Name Role Phone Shawna Garcia MD Primary Care Provider [phone] Mukul Jeong Primary Care Provider [phone] Abel Mclaughlin Primary Care Provider [phone] Encounter Details Date Type Department Care Team (Late st Contact Info) Description 08/01/2008 Orders Only [facility] Urology [address] [facility] [address] [place] [address] Juana Johnson NP Social History Tobacco Use [...] of this encounter Procedures * Due to [place] [employer] law, this organization might not be sharing negative HIV tests. Procedure Name Priority Date/Time Associated Diagnosis Comments NON-GYNECOLOGICAL CYTOLOGY Routine 08/01/2008 2:47 PM EST CULTURE, URINE Routine 08/01/2008 Dysuria Hematuria URINALYSIS, COMPLETE (DIP & MICRO) Routine 08/01/2008 Dysuria Hematuria documented in this encounter Results * Due to [place] [employer] law, this organization might not be sharing negative HIV tests. * NON-GYNECOLOGICAL CYTOLOGY (08/01/2008 2:47 PM EST) NON-GYNECOLOGICAL CYTOLOGY SEE TEXT Comment: NON-GYNECOLOGICAL CYTOLOGY SOURCE: URINE RESULT: NO MALIGNANT CELLS INTERPRETATION: SQUAMOUS CELLS AND TRANSITIONAL CELLS COMMENTS: 100 ML. OF CLEAR, LIGHT YELLOW FLUID, RECEIVED FIXED IN ALCOHOL AND PROCESSED BY CYTOSPIN. PATHOLOGIST: SIS COOMBS M.D. *SIGNATURE ON FILE* RESULT DATE: 08/03/2008 TECHNOLOGIST: FRANCISCA 08/01/2008 2:47 PM EST 08/02/2008 12:06 AM EST Narrative 08/03/2008 2:18 PM EST Report Comments: 100 ML. OF CLEAR, LIGHT YELLOW FLUID, RECEIVED FIXED IN ALCOHOL AND PROCESSED BY CYTOSPIN. Result Froilan Johnson NP PATHOLOGY-INTERFACED Final Resul t * (ABNORMAL) URINALYSIS, COMPLETE (DIP & MICRO) (08/01/2008) COLOR (URINE) YELLOW YELLOW APPEARANCE (URINE) CLEAR [...] SEEN 08/01/2008 08/01/2008 7:2 6 PM EST Result Froilan Johnson NP LAB SAME DAY RESULT Final Result * CULTURE, URINE (08/01/2008) URINE CULTURE CLEAN VOID SEE TEXT Comment: SOURCE: URINE NO GROWTH 08/01/2008 08/01/2008 7:2 6 PM EST Result Froilan Combso SOURCING MANAGER LABORATORY Final Result documented in this encounter Visit Diagnoses Diagnosis Dysuria Hematuria Hematuria, unspecified documented in this encounter Additional Health Concerns Infection Onset Date Last Indicated Resolved Time COVID-19 Confirmed 07/08/2023 07/08/2023 documented as of this encounter Care Teams Greenhouse Specialist Relationship Specialty Start Date End Date Shawna Garcia MD [facility] [address] [place] [phone] PCP - General 05/14/07 06/30/[address]ong [address] [phone] PCP - General Family Medicine 07/01/11 04/23/17 Abel Mclaughlin [address] [place] [phone] PCP - General Family Medicine 04/24/17 documented as of this encounter
--- OUTSIDE RECORDS SUMMARY | 2025-05-09 16:28 | XMS_ITS | Encounter Summary ---
Author Organization [facility] Address [address] [place] [address] Care Team Providers Care Computer Aide Name Role Phone Shawna Garcia MD Primary Care Provider [phone] Mukul Jeong Primary Care Provider [phone] Abel Mclaughlin Primary Care Provider [phone] Encounter Details Date Type Department Care Team (Late st Contact Info) Description 10/23/2010 Orders Only [facility] Urology [address] [facility] [address] [place] [address] Juana Johnson NP Social History Tobacco Use [...] of this encounter Procedures * Due to [facility] law, this organization might not be sharing negative HIV tests. Procedure Name Priority Date/Time Associated Diagnosis Comments CULTURE, URINE Routine 10/23/2010 URINALYSIS,C&S IF INDICATED Routine 10/23/2010 Dysuria Tobacco abuse Bladder outlet obstruction documented in this encounter Results * Due to [place] [employer] law, this organization might not be sharing negative HIV tests. * CULTURE, URINE (10/23/2010) URINE CULTURE CLEAN VOID SEE TEXT [facility] Comment: SOURCE: URINE NO GROWTH 10/23/2010 10/24/2010 1:3 5 AM EDT Juana Johnson NP LABORATORY Final Result Performing Organization Address City/State/[facility] Co de Phone Number [facility] [address] [place] [phone] * (ABNORMAL) URINALYSIS,C&S IF INDICATED (10/23/2010) COLOR [...] NP LABORATORY Final Result [facility] [address] [place] [address] documented in this encounter Visit Diagnoses Diagnosis Dysuria Tobacco abuse Tobacco use disorder Bladder outlet obstruction Bladder neck obstruction documented in this encounter Additional Health Concerns Infection Onset Date Last Indicated Resolved Time COVID-19 Confirmed 07/08/2023 07/08/2023 documented as of this encounter Care Teams Computer Aide Relationship Specialty Start Date End Date Shawna Garcia MD [facility] [address] [place] [phone] PCP - General 05/14/07 06/30/11 Mukul Jeong [facility] [address] [place] [phone] PCP - General Family Medicine 07/01/11 04/23/17 Abel Mclaughlin [address] [place] [phone] PCP - General Family Medicine 04/24/17 documented as of this encounter
--- OUTSIDE RECORDS SUMMARY | 2025-05-09 16:28 | XMS_ITS | Encounter Summary ---
Author Organization [facility] Address [address] [place] [address] Care Team Providers Care Property Manager Name Role Phone Abel Mclaughlin Primary Care Provider [phone] Encounter Details Date Type Department Care Team (Late st Contact Info) Description 08/26/2017 Orders Only [facility] Infectious Disease [address] [facility] [address] [place] [address] Tomasz Robbins MD Social History Tobacco Use Types Packs/Day Years [...] this encounter Procedures * Due to [place] state law, this organization might not be sharing negative HIV tests. Procedure Name Priority Date/Time Associated Diagnosis Comments CULTURE, URINE, ROUTINE Routine 08/26/2017 3:46 PM EST Hematuria, unspecified type URINALYSIS, COMPLETE INCLUDES DIPSTICK AND MICROSCOPIC Routine 08/26/2017 3:46 PM EST Hematuria, unspecified type documented in this encounter Results * Due to [place] state law, this organization might not be sharing negative HIV tests. * CULTURE, URINE, ROUTINE (08/26/2017 3:46 PM EST) Bacteria culture (Urine) SEE NOTE [facility] Comment: CULTURE, URINE, ROUTINE MICRO NUMBER: [id number] TEST STATUS: FINAL SPECIMEN SOURCE: URINE SPECIMEN QUALITY: ADEQUATE RESULT: No Growth 08/26/2017 3:46 PM EST 08/26/2017 9:43 PM EST Narrative Resulting Agency Comment [id number] us Tomasz Robbins MD LABORATORY Final Resul t Performing Organization Address City/State/[facility] Co de Phone Number [facility] [address] [place] [phone] * (ABNORMAL) URINALYSIS, COMPLETE INCLUDES DIPSTICK AND [...] 9:43 PM EST Narrative Resulting Agency Comment [id number] us Tomasz Robbins MD LAB SAME DAY RESULT Final R esult [facility] [address] [place] [address] documented in this encounter Visit Diagnoses Diagnosis Hematuria, unspecified type documented in this encounter Additional Health Concerns Infection Onset Date Last Indicated Resolved Time COVID-19 Confirmed 07/08/2023 07/08/2023 documented as of this encounter Care Teams Property Manager Relationship Specialty Start Date End Date Abel Mclaughlin [address] [place] [phone] PCP - General Family Medicine 04/24/17 documented as of this encounter
--- OUTSIDE RECORDS SUMMARY | 2025-05-09 16:28 | XMS_ITS | Encounter Summary ---
Author Organization [facility] Address [address] [place] [address] Care Team Providers Care Special Systems Technician Name Role Phone Abel Mclaughlin Primary Care Provider [phone] Encounter Details Date Type Department Care Team ([facility] st Contact Info) Description 06/08/2019 Orders Only [facility] Urology [address] [address] Mely Valentine NP [address] [place] [address] Social History Tobacco Use Types Packs/Day Years [...] of this encounter Procedures * Due to [place] state law, this organization might not be sharing negative HIV tests. Procedure Name Priority Date/Time Associated Diagnosis Comments CULTURE, URINE, ROUTINE Routine 06/08/2019 12:09 PM EST Hematuria, unspecified type URINALYSIS, COMPLETE INCLUDES DIPSTICK AND MICROSCOPIC Routine 06/08/2019 12:09 PM EST Hematuria, unspecified type documented in this encounter Results * Due to [place] state law, this organization might not be sharing negative HIV tests. * CULTURE, URINE, ROUTINE (06/08/2019 12:09 PM EST) Bacteria culture (Urine) SEE NOTE [facility] Comment: CULTURE, URINE, ROUTINE Micro Number: [id number] Test Status: Final Specimen Source: URINE Specimen Quality: Adequate Result: Single organism less than 10,000 CFU/mL isolated. These organisms, commonly found on external and internal genitalia, are considered colonizers. No further testing performed. 06/08/2019 12:0 9 PM EST 06/08/2019 10:23 PM EST Narrative Resulting Agency Comment [id number] us Mely Valentine NP LABORATORY Final Re sult Performing Organization Address City/State/[facility] Co de Phone Number [facility] [address] [place] [address] * (ABNORMAL) URINALYSIS, COMPLETE INCLUDES DIPSTICK AND [...] 10:23 PM EST Narrative Resulting Agency Comment [id number] us Mely Valentine MATHEMATICAL SCIENTIST LAB SAME DAY RESULT Jodi layton Result [facility] [address] [place] [address] documented in this encounter Visit Diagnoses Diagnosis Hematuria, unspecified type documented in this encounter Additional Health Concerns Infection Onset Date Last Indicated Resolved Time COVID-19 Confirmed 07/08/2023 07/08/2023 documented as of this encounter Care Teams Special Systems Technician Relationship Specialty Start Date End Date Abel Mclaughlin [address] [place] [phone] PCP - General Family Medicine 04/24/17 documented as of this encounter
--- OUTSIDE RECORDS SUMMARY | 2025-05-09 16:28 | XMS_ITS | Encounter Summary ---
Author Organization [facility] Address [address] [place] [address] Care Team Providers Care Cooking Teacher Name Role Phone Abel Mclaughlin Primary Care Provider [phone] Encounter Details Date Type Department Care Team ([facility] st Contact Info) Description 04/24/2017 Orders Only [facility] Urology [address] [facility] [address] [place] [address] Татьяна Reyna LPN [address] [place] [address] Social History Tobacco Use Types Packs/Day Years [...] this encounter Procedures * Due to [place] state law, this organization might not be sharing negative HIV tests. Procedure Name Priority Date/Time Associated Diagnosis Comments CULTURE, URINE, ROUTINE Routine 04/24/2017 11:31 AM EDT Incomplete bladder emptying URINALYSIS, COMPLETE INCLUDES DIPSTICK AND MICROSCOPIC Routine 04/24/2017 11:31 AM EDT Incomplete bladder emptying documented in this encounter Results * Due to [place] state law, this organization might not be [...] 5:27 PM EDT Narrative Resulting Agency Comment [id number] James Brand MD LAB SAME DAY RESULT Final Resul t Performing Organization Address City/[facility]/ZIP Co de Phone Number [facility] [address] [place] [address] * CULTURE, URINE, ROUTINE (04/24/2017 11:31 AM EDT) Bacteria culture (Urine) SEE NOTE [facility] Comment: CULTURE, URINE, ROUTINE MICRO NUMBER: [id number] TEST STATUS: FINAL SPECIMEN SOURCE: URINE SPECIMEN QUALITY: ADEQUATE RESULT: No Growth 04/24/2017 11:3 1 AM EDT 04/24/2017 5:27 PM EDT Narrative Resulting Agency Comment [id number] James Brand MD LABORATORY Final Result [facility] [address] [place] [address] documented in this encounter Visit Diagnoses Diagnosis Incomplete bladder emptying documented in this encounter Additional Health Concerns Infection Onset Date Last Indicated Resolved Time COVID-19 Confirmed 07/08/2023 07/08/2023 documented as of this encounter Care Teams Cooking Teacher Relationship Specialty Start Date End Date Abel Mclaughlin [address] [place] [phone] PCP - General Family Medicine 04/24/17 documented as of this encounter
--- OUTSIDE RECORDS SUMMARY | 2025-05-09 16:28 | XMS_ITS | Encounter Summary ---
Author Organization [facility] Address [address] [place] [address] Care Team Providers Care Manager Commercial Name Role Phone Abel Mclaughlin Primary Care Provider [phone] Encounter Details Date Type Department Care Team (Late st Contact Info) Description 07/29/2019 Orders Only [facility] Hematology/Oncology 1 [facility] [address] [place] [phone] Albert Noble MD [address] [place] [address] Social History Tobacco Use Types Packs/Day Years [...] this encounter Procedures * Due to [place] state law, this organization might not be [...] this encounter Results * Due to [place] state law, this organization might not be sharing negative HIV tests. * VON WILLEBRAND FACTOR ANTIGEN (07/29/2019 1:05 PM EST) von Willebrand factor Ag actual/Normal (Platelet Poor Plasma) 194 50 - 217 % [facility] 07/29/2019 1:05 PM EST 07/29/2019 7:41 PM EST Narrative Resulting Agency Comment [id number] Albert Noble MD LABORATORY Final Result Performing Organization Address [facility] Co de Phone Number [facility] [address] [place] [address] * RISTOCETIN COFACTOR (07/29/2019 1:05 PM EST) von Willebrand factor.ristocet in cofactor activity actual/Normal (Platelet Poor Plasma) 175 42 - 200 % NORMAL [facility] 07/29/2019 1:05 PM EST 07/29/2019 7:41 PM EST Narrative Resulting Agency Comment [id number] us Albert Noble MD LABORATORY Final Result Performing Organization Address [facility] Co de Phone Number [facility] [address] [place] [address] * ACTIVATED PARTIAL THROMBOPLASTIN TIME (APTT), PLASMA (07/29/2019 1:05 PM EST) Thromboplastin Time 30 22 - 34 sec [facility] Comment: This test has not been validated for monitoring unfractionated heparin therapy. For testing that is validated for this type of therapy, please refer to the Heparin Anti-Xa assay (test code 74844). For additional information, please refer to http://education.Pay-Me/faq/LUS825 (This link is being provided for informational/educational purposes only.) 07/29/2019 1:05 PM EST 07/29/2019 7:41 PM EST Narrative Resulting Agency Comment [id number] Albert Noble MD LAB SAME DAY RESULT Final Resul t Performing Organization Address [facility] de Phone Number [facility] [address] [place] [address] * PROTHROMBIN TIME (PT) (INR), BLOOD (07/29/2019 1:05 PM EST) INR 1.0 [facility] Comment: Reference Range 0.9-1.1 Moderate-intensity Warfarin Therapy 2.0-3.0 Higher-intensity Warfarin Therapy 3.0-4.0 PT 10.5 9.0 - 11.5 sec [facility] Comment: For more information on this test, go to: http://education.[employer]/faq/JVN463 07/29/2019 1:05 PM EST 07/29/2019 7:41 PM EST Narrative Resulting Agency Comment [id number] Albert Noble MD LAB SAME DAY RESULT Final Resul t Performing Organization Address [facility] de Phone Number [facility] [address] [place] [address] * CBC INCLUDES DIFFERENTIAL AND PLATELET COUNT [...] 7:41 PM EST Narrative Resulting Agency Comment [id number] Albert Noble MD LAB SAME DAY RESULT Final Resul t Performing Organization Address City/[facility] Co de Phone Number [facility] [address] [place] [address] * COAG FACTOR VIII ACTIVITY (07/29/2019 1:05 PM EST) Coagulation factor VIII activity actual/Normal (Platelet Poor Plasma) 126 50 - 180 % normal [facility] Comment: For additional information, please refer to http://education.TrackaPhone.Edaixi/faq/DWG196 (This link is being provided for informational/ educational purposes only.) 07/29/2019 1:05 PM EST 07/29/2019 7:41 PM EST Narrative Resulting Agency Comment [id number] Albert Noble MD LABORATORY Final Result Performing Organization Address City/[facility] Co de Phone Number [facility] [address] [place] [address] documented in this encounter Visit Diagnoses Diagnosis Asymptomatic microscopic hematuria documented in this encounter Additional Health Concerns Infection Onset Date Last Indicated Resolved Time COVID-19 Confirmed 07/08/2023 07/08/2023 documented as of this encounter Care Teams Manager Commercial Relationship Specialty Start Date End Date Abel Mclaughlin [address] [place] [phone] PCP - General Family Medicine 04/24/17 documented as of this encounter
--- OUTSIDE RECORDS SUMMARY | 2025-05-09 16:28 | XMS_ITS | Clinical Summary ---
Author Organization [facility] Address [address] [place] [address] Care Team Providers Care Brasswind Instrument Repairer Name Role Phone Abel Mclaughlin Primary Care Provider [phone] Allergies Active Allergy Reactions Criticality Noted Date [...] muscle spasms (tightness). 21 capsule 05/23/2024 Active Tamsulosin HCl (FLOMAX) 0.4 MG CapIndications:D ysuria Take one capsule (0.4 mg total) by mouth every night for 7 days. 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 UTI (urinary tract infection) 02/21/2008 Overview (06/22/2015): Immunizations Immunization Administration Dates Next Due COVID-19, mRNA (Pfizer Pre F all 2022) Monovalent, 30 mcg/0.3 ml 04/19/2021,12/13/2020 Influenza,injectable,quad,Prsrv Fr 09/22/2019 influenza,seasonal,trivalent ,PF (Fluzone, Fluarix, Flulaval) 04/06/2025,04/20/2024 Social History Tobacco Use Types Packs/Day Years [...] Sign Reading Time Taken Comments Blood Pressure 125/80 01/08/2025 11:40 AM EDT Pulse 88 01/08/2025 11:40 AM EDT Temperature 36.4 C (97.6 F) 01/08/2025 11:40 AM EDT Respiratory Rate 14 01/08/2025 11:40 AM EDT Oxygen Saturation 98% 01/08/2025 11:40 AM EDT Inhaled Oxygen Concentration - - Weight [...] (Shingrix) (1 of 2) 09/27/2019 COVID-19 Vaccine (3 - season) 2025 04/19/2021, 12/13/2020 EKG Discontinued 09/05/2010, 08/27, 08/30/2010, Additional history exists Chest Imaging Discontinued 04/21/2021, 05/28, 01/09/2014, Additional history exists PSA Discontinued 10/19/2024, 100 07/2023, 10/29/2023, Additional history exists Influenza Completed 04/06/2025, 03/28, 09/22/2019 HPV Vaccine (No Doses Required) Completed Hep A Aged Out No longer eligi ble based on patient's age to complete this topic Hib Aged Out No longer eligi ble based on patient's age to complete this topic Meningococcal ACWY Aged Out No longer eligible based on patient's age to complete this topic Procedures * Due to [place] state law, this organization might not be sharing negative HIV tests. Procedure Name Priority Date/Time Associated Diagnosis Comments PROSTATE SPECIFIC ANTIGEN (PSA) TOTAL, SERUM Routine 05/14/2012 4:06 PM EDT Prostatitis EKG Routine 09/05/2010 2:59 PM EST CXR 2 VIEW AP/PA AND LAT Routine 08/30/2010 4:16 PM EST from Last 3 Months or Most Recently Relevant to Health Maintenance Results * Due to [place] state law, this organization might not be sharing negative HIV tests. * PROSTATE SPECIFIC ANTIGEN (PSA) TOTAL, SERUM (05/14/2012 4:06 PM EDT) PSA 0.2 < OR = 4.0 ng/mL [facility] Comment: {PSA, TOTAL {[id number]) This test was performed using the Siemens chemiluminescent method. Values obtained from different assay methods cannot be used interchangeably. PSA levels, regardless of value, should not be interpreted as absolute evidence of the presence or absence of disease. 05/14/2012 4:06 PM EDT 05/14/2012 10:30 PM EDT Narrative Resulting Agency Comment [id number] us James Brand MD LABORATORY Final Result [facility] [address] [place] [address] * (ABNORMAL) EKG (09/05/2010 2:59 PM EST) [...] hilar structures are unremarkable. Impression: Normal study. [facility] Anatomical Region Laterality Modality Other 08/30/2010 4:16 PM EST Narrative 08/30/2010 4:20 PM EST Reason for Study/History: There are no comparison studies. TEST(S) PROCESSED BY [facility] XRAY us Ritika Plaza MD IMAGING-[facility] Final Result from Last 3 Months or Most Recently Relevant to Health Maintenance Additional Health Concerns Infection Onset Date Last Indicated COVID-19 Confirmed 07/08/2023 07/08/2023 Insurance MEDICAID MEDICARE [facility] [facility] Care Teams Brasswind Instrument Repairer Relationship Specialty Start Date End Date Arnoldo Abel Leena [address] [place] [phone] PCP - General Family Medicine 04/24/17
--- OUTSIDE RECORDS SUMMARY | 2025-05-09 16:28 | XMS_ITS | Encounter Summary ---
Author Organization [facility] Address [address] [place] [address] Care Team Providers Care Church Organist Name Role Phone Arnoldo Abel Stern Primary Care Provider [phone] Encounter Details Date Type Department Care Team (Late st Contact Info) Description 06/10/[address] [facility] Infectious Disease [address] [facility] [address] [place] [address] Tomasz Robbins MD Social History Tobacco Use [...] of this encounter Procedures * Due to [place] state law, this organization might not be [...] in this encounter Results * Due to [place] state law, this organization might not be sharing negative HIV tests. * ACID-FAST SMEAR AND CULTURE, MYCOBACTERIUM (06/10/2017 3:08 PM EST) Microscopic observation SEE NOTE [facility] Comment: MYCOBACTERIA, CULTURE, WITH FLUOROCHROME SMEAR MICRO NUMBER: [id number] TEST STATUS: FINAL SPECIMEN SOURCE: URINE SPECIMEN QUALITY: ADEQUATE SMEAR: No acid fast bacilli seen. RESULT: No Mycobacterium species isolated after 8 weeks incubation. 06/10/2017 3:08 PM EST 06/10/2017 9:46 PM EST Tomasz Robbins MD LABORATORY Final Resul t Performing Organization Address [facility] Co de Phone Number [facility] [address] [place] [address] * ACID-FAST SMEAR AND CULTURE, MYCOBACTERIUM (06/10/2017 12:11 PM EST) Microscopic observation SEE NOTE [facility] Comment: MYCOBACTERIA, CULTURE, WITH FLUOROCHROME SMEAR MICRO NUMBER: [id number] TEST STATUS: FINAL SPECIMEN SOURCE: NOT GIVEN SPECIMEN QUALITY: ADEQUATE SMEAR: No acid fast bacilli seen. RESULT: No Mycobacterium species isolated after 8 weeks incubation. 06/10/2017 12:1 1 PM EST 06/10/2017 5:19 PM EST us Tomasz Robbins MD LABORATORY Final Resul t Performing Organization Address City/[facility] Co de Phone Number [facility] [address] [place] [address] * OVA AND PARASITES WITH GIARDIA ANTIGEN (06/10/2017 12:11 PM EST) Giardia lamblia Ag (Stool) SEE NOTE [facility] Comment: GIARDIA AG, EIA, STOOL MICRO NUMBER: [id number] TEST STATUS: FINAL SPECIMEN SOURCE: NOT GIVEN SPECIMEN QUALITY: ADEQUATE RESULT 1: Not Detected NOTE: Due to intermittent shedding, one negative sample does not necessarily rule out the presence of a parasitic infection. Ova+Parasites identified (Stool) SEE NOTE [facility] Comment: OVA AND PARASITES, CONC AND PERM SMEAR MICRO NUMBER: [id number] TEST STATUS: FINAL SPECIMEN SOURCE: NOT GIVEN SPECIMEN QUALITY: ADEQUATE CONCENTRATION 1: No ova or parasites seen TRICHROME 1: No ova or parasites seen Routine Ova and Parasite exam may not detect some parasites that occasionally cause diarrheal illness. Test code(s) 21386 (Cryptosporidium Ag., DFA) and/or 95156 (Cyclospora and Isospora Exam) may be ordered to detect these parasites. One negative sample does not necessarily rule out the presence of a parasitic infection. Urine specimen (specimen) 06/10/2017 12:11 PM EST 06/10/2017 5:19 PM EST Narrative Resulting Agency Comment [id number] us Tomasz Robbins MD LABORATORY Final Resul t [facility] [address] [place] [phone] * CYTOLOGY URINE (06/10/2017 12:11 PM EST) Screener MXD, CT (ASCP) CT screening location: [address] [address] [facility] Pathologist Name Michaela Loar M.D., Ph.D., Board Certified in Anatomic and Clinical Pathology and Cytopathology (electronic signature) Consulting Pathologist [facility] Pathology [address] [place] [address] [facility] Specimen source Urine VOIDED Q [facility] Procedure Cytology [facility] Gross Observation SEE NOTE [facility] Comment: The name on the container is in agreement with the requisition. 20 mL of cloudy light yellow fluid, received in an unknown fixative and processed by the Thinprep method. (AG) 06/11/17 Gross exam(s) performed at: [facility] [address] [phone] Evp Strategy: NAIF PEREZ MD FINAL DIAGNOSIS Negative for malignant cells. [facility] 06/10/2017 12:1 1 PM EST 06/11/2017 12:18 AM EST Narrative Resulting Agency Comment [id number] us Tomasz Robbins MD PATHOLOGY-INTERFACED Final Result Performing Organization Address City/State/[facility] Co de Phone Number [facility] [address] [place] [address] documented in this encounter Visit Diagnoses Diagnosis Hematuria, unspecified type documented in this encounter Additional Health Concerns Infection Onset Date Last Indicated Resolved Time COVID-19 Confirmed 07/08/2023 07/08/2023 documented as of this encounter Care Teams Church Organist Relationship Specialty Start Date End Date Abel Mclaughlin [address] [place] [phone] PCP - General Family Medicine 04/24/17 documented as of this encounter
--- OUTSIDE RECORDS SUMMARY | 2025-05-09 16:28 | XMS_ITS | Patient Health Record ---
Author Organization [facility] Address [address] [place] [address] Care Team Providers Care Food Safety Scientist Name Role Phone YesseniaTomasz rich Primary Care Provider Trell Talbert MD MSc, Muna Unavailable [phone] Allergies Allergen (clinical drug ingredient) Drug/Non Drug Allergy documented on EMR Reaction Allergy Type Onset Date Status Information temporarily unavailable percocet hives Drug Allergy Active Medications Medication SIG (Take, Route, Frequency, Duration) Notes Start Date End Date Status cloNIDine HCl 0.1 MG 1 tablet at bedtime Orally Once a day; Duration: 30 day(s) Active fentaNYL 25 MCG/HR 1 patch to skin Transdermal Active Ciprofloxacin 500 MG/5ML (10%) 5 ml Orally Twice a day; Duration: 10 day(s) Active Gabapentin 600 MG 1 tablet Orally Thre e times a day; Duration: 30 day(s) Active Social History Alcohol screen Question Answer Notes Did you have a drink containing alcohol in the p ast year? No Interpretation Negative Drug Question Answer Notes Have you used drugs other th an those for medical reasons in the past 12 months? No Section Notes: Opioid Risk Tool: 1) Family History of: Alcohol use +0 ; Illegal Drug use + 0 ; Prescription drug use + 0 Personal history of: Alcohol use +3; Illegal drug use =4; Prescription drug use+ 0 Age (16-45) + 0 History of preadolescent abuse + 0 Psychological disease: ADD, OCD, Bipolar, Schizophrenia + 0 Depression 1. Total: _8_ Risk: High 8+ Opioid Risk Tool: 1) Family History of: Alcohol use +0 ; Illegal Drug use + 0 ; Prescription drug use + 0 Personal history of: Alcohol use +3; Illegal drug use =4; Prescription drug use+ 0 Age (16-45) + 0 History of preadolescent abuse + 0 Psychological disease: ADD, OCD, Bipolar, Schizophrenia + 0 Depression 1. Total: _8_ Risk: High 8+ Problems Problem Type SNOMED Code ICD Code Onset Dates Problem Status W/U Status Risk Notes Problem Chronic prostatitis (26122085) Chronic prostatitis (601.1) Active confirmed Problem Long-term current use of drug therapy (649305679) Encounter for long-term (current) use of other medications (V58.69) Active confirmed Plan Of Treatment Pending Test Test Name Order Date Urine toxicology, cup 12/16/2012 PAIN MGMT, OPIATES QN, URINE 12/17/2012 PAIN MGMT, TRICYCLIC ANTIDEPRESS, QN, UR INE 12/17/2012 PAIN MGMT, AMPHETAMINES QN, URINE 2012 PAIN MGMT,BENZODIAZEPINES QN, URINE 11/25 PAIN MGMT, COCAINE METABOLITE QN, URINE 12/17/2012 PAIN MGMT, MARIJUANA METABOLITE QN, URIN E 12/17/2012 PAIN MGMT, OXYCODONE QN, URINE 3 PAIN MGMT, OPIATES EXPANDED QN, URINE PAIN MGMT, BARBITURATES QN, URINE 2012 PAIN MGMT, AMPHETAMINES QN, URINE 2012 PAIN MGMT,BENZODIAZEPINES QN, URINE 11/25 PAIN MGMT, COCAINE METABOLITE QN, URINE 12/17/2012 PAIN MGMT, MARIJUANA METABOLITE QN, URIN E 12/17/2012 PAIN MGMT, METHADONE QN, URINE 3 PAIN MGMT, PHENCYCLIDINE QN, URINE 12/17 PAIN MGMT, TRICYCLIC ANTIDEPRESS, QN, UR INE 12/17/2012 PAIN MGMT, MDMA/MDA, QN, URINE - [id number] 12/17/2012 PAIN MGMT, MDMA/MDA, QN, URINE 3 Insurance Providers Payer Name Payer Address Payer Phone Subscriber Number Group Number Insured Name Patient Relationship to Insured Coverage Start Date Coverage End Date [facility] [address] [place]ANNE ALLEN [phone] [id number] Tony Alonzo Self - patient is the insured Medical (General) History Medical History History ICD Code Hypertension piedad parkinson white dz Surgical History Surgery Date(Month/Year) prostate surgery 09/09/2010
--- OUTSIDE RECORDS SUMMARY | 2025-05-09 16:28 | XMS_ITS | Encounter Summary ---
Author Organization [facility] Address [address] [place] [address] Care Team Providers Care Welder Production Line Gas Name Role Phone Abel Mclaughlin Primary Care Provider [phone] Encounter Details Date Type Department Care Team ([facility] st Contact Info) Description 05/12/2019 Orders Only [facility] Urology [address] [facility] [address] [place] [address] Mely Valentine, RAW CHEESE WORKER [address] [place] [address] Social History Tobacco Use Types Packs/Day Years [...] this encounter Procedures * Due to [place] law, this organization might not be sharing negative HIV tests. Procedure Name Priority Date/Time Associated Diagnosis Comments URINALYSIS DIP W/ REFLEX TO MICROSCOPIC+CULTURE Routine 05/12/2019 4:42 PM EDT Hematuria, unspecified type Dysuria URINALYSIS, MICROSCOPIC Routine 05/12/2019 4:42 PM EDT documented in this encounter Results * Due to [place] law, this organization might not be sharing [...] RESULT Jodi layton Result Performing Organization Address [facility] Co de Phone Number [facility] [address] [place] [address] * (ABNORMAL) URINALYSIS DIP W/ REFLEX TO [...] 10:47 PM EDT Narrative Resulting Agency Comment [id number] Mely Valentine NP LABORATORY Final Re sult Performing Organization Address [facility] Co de Phone Number [facility] [address] [place] [address] documented in this encounter Visit Diagnoses Diagnosis Hematuria, unspecified type Dysuria documented in this encounter Additional Health Concerns Infection Onset Date Last Indicated Resolved Time COVID-19 Confirmed 07/08/2023 07/08/2023 documented as of this encounter Care Teams Welder Production Line Gas Relationship Specialty Start Date End Date Abel Mclaughlin [address] [place] [phone] PCP - General Family Medicine 04/24/17 documented as of this encounter
--- OUTSIDE RECORDS SUMMARY | 2025-05-09 16:28 | XMS_ITS | Encounter Summary ---
Author Organization [facility] Address [address] [place] [address] Care Team Providers Care Technology Coach Name Role Phone Mukul Jeong Primary Care Provider [phone] Abel Mclaughlin Primary Care Provider [phone] Encounter Details Date Type Department Care Team ([facility] st Contact Info) Description 05/14/2012 Orders Only [facility] Urology [address] [facility] [address] [place] [address] James Brand MD [address] [place] [address] Social History Tobacco Use Types Packs/Day Years [...] this encounter Procedures * Due to [place] [employer] law, this organization might not be sharing negative HIV tests. Procedure Name Priority Date/Time Associated Diagnosis Comments ERYTHROCYTE SEDIMENTATION RATE (ESR) Routine 05/14/2012 4:06 PM EDT Prostatitis PROSTATE SPECIFIC ANTIGEN (PSA) TOTAL, SERUM Routine 05/14/2012 4:06 PM EDT Prostatitis documented in this encounter Results * Due to [place] [employer] law, this organization might not be sharing negative HIV tests. * PROSTATE SPECIFIC ANTIGEN (PSA) TOTAL, SERUM (05/14/2012 4:06 PM EDT) PSA 0.2 < OR = 4.0 ng/mL [facility] Comment: {PSA, TOTAL {[id number]) This test was performed using the Siemens chemiluminescent method. Values obtained from different assay methods cannot be used interchangeably. PSA levels, regardless of value, should not be interpreted as absolute evidence of the presence or absence of disease. 05/14/2012 4:06 PM EDT 05/14/2012 10:30 PM EDT Narrative Resulting Agency Comment [id number] James Brand MD LABORATORY Final Result Performing Organization Address [facility] Co de Phone Number [facility] [address] [place] [phone] * ERYTHROCYTE SEDIMENTATION RATE (ESR), WESTERGREN (05/14/2012 4:06 PM EDT) Sedimentation Rate [place] (ESR) 4 < OR = 15 mm/h [facility] Comment:{SED RATE BY MODIFIE D WESTERGREN {[id number]) 05/14/2012 4:06 PM EDT 05/14/2012 10:30 PM EDT Narrative Resulting Agency Comment [id number] James Brand MD LAB SAME DAY RESULT Final Resul t Performing Organization Address City/[facility] Co de Phone Number [facility] [address] [place] [address] documented in this encounter Visit Diagnoses Diagnosis Prostatitis Prostatitis, unspecified documented in this encounter Additional Health Concerns Infection Onset Date Last Indicated Resolved Time COVID-19 Confirmed 07/08/2023 07/08/2023 documented as of this encounter Care Teams Technology Coach Relationship Specialty Start Date End Date Mukul Jeong [address] [phone] PCP - General Family Medicine 07/01/11 04/23/17 Abel Mclaughlin [address] [place] [phone] PCP - General Family Medicine 04/24/17 documented as of this encounter
--- OUTSIDE RECORDS SUMMARY | 2025-05-09 16:28 | XMS_ITS | Encounter Summary ---
Author Organization [facility] Address [address] [place] [address] Care Team Providers Care Paper Products Supervisor Name Role Phone Abel Mclaughlin Primary Care Provider [phone] Encounter Details Date Type Department Care Team (Late st Contact Info) Description 06/28/2023 Orders Only [facility] [address] [address] Indira Alex, MARI [address] [place] [address] Medications Social History Tobacco Use Types Packs/Day [...] documented as of this encounter Care Teams Paper Products Supervisor Relationship Specialty Start Date End Date Abel Mclaughlin [address] [place] [address] PCP - General Family Medicine 04/24/17 documented as of this encounter
--- OUTSIDE RECORDS SUMMARY | 2025-05-09 16:28 | XMS_ITS | Encounter Summary ---
Author Organization [facility] Address [address] [place] [address] Care Team Providers Care Certified Dialysis Technician Name Role Phone Mukul Jeong Primary Care Provider Abel Mclaughlin Primary Care Provider Encounter Details Date Type Department Care Team ([facility] st Contact Info) Description 03/11/2012 Orders Only [facility] Urology [address] [facility] [address] [place] [address] James Brand MD [address] [place] [address] Social History Tobacco Use Types Packs/Day Years [...] this encounter Procedures * Due to [place] law, this organization might not be sharing negative HIV tests. Procedure Name Priority Date/Time Associated Diagnosis Comments URINALYSIS, MICROSCOPIC WITH REFLEX CULTURE Routine 03/11/2012 10:40 AM EDT Dysuria documented in this encounter Results * Due to [place] law, this organization might not be sharing negative HIV tests. * (ABNORMAL) URINALYSIS, MICROSCOPIC WITH REFLEX CULTURE (03/11/2012 10:40 AM EDT) WBC (Urine) NONE SEEN < OR = 5 /HPF [facility] Comment:{WBC {[id number]) RBC (Urine Sed) 10-20(A) < OR = 3 /HPF [facility] Comment:{RBC {[id number]) Epithelial cells.squamous (Urine sed) NONE SEEN < OR = 5 /HPF [facility] Comment:{SQUAMOUS EPITHELIAL CELLS {[id number]) Bacteria (Urine) NONE SEEN NONE SEEN /HPF [facility] Comment:{BACTERIA {[id number]) Hyaline casts (Urine sed) NONE SEEN NONE SEEN /LPF [facility] Comment:{HYALINE CAST {[id number]) 03/11/2012 10:4 0 AM EDT 03/11/2012 5:52 PM EDT Narrative Resulting Agency Comment [id number] us James Brand MD LABORATORY Final Result [facility] [address] [place] [address] documented in this encounter Visit Diagnoses Diagnosis Dysuria documented in this encounter Additional Health Concerns Infection Onset Date Last Indicated Resolved Time COVID-19 Confirmed 07/08/2023 07/08/2023 documented as of this encounter Care Teams Certified Dialysis Technician Relationship Specialty Start Date End Date Mukul Jeong [facility] [address] [place] [address] PCP - General Family Medicine 07/01/11 04/23/17 Abel Mclaughlin [address] [place] [phone] PCP - General Family Medicine 04/24/17 documented as of this encounter
--- OUTSIDE RECORDS SUMMARY | 2025-05-09 16:28 | XMS_ITS | Encounter Summary ---
Author Organization [facility] Address [address] [place] [address] Care Team Providers Care Orange Picker Name Role Phone Arnoldo Abel Stern Primary Care Provider [phone] Encounter Details Date Type Department Care Team (Late st Contact Info) Description 06/24/2017 Orders Only [facility] Infectious Disease [address] [facility] [address] [place] [address] Tomasz Robbins MD Social History Tobacco Use [...] this encounter Procedures * Due to [place] law, this organization might not be sharing [...] identified (Stool) SEE NOTE [facility] Comment: OVA AND PARASITES, CONC AND PERM SMEAR MICRO NUMBER: [id number] TEST STATUS: FINAL SPECIMEN SOURCE: URINE SPECIMEN QUALITY: ADEQUATE CONCENTRATION 1: No Schistosoma eggs seen TRICHROME 1: Test not performed. Routine Ova and Parasite exam may not detect some parasites that occasionally cause diarrheal illness. Test code(s) 57575 (Cryptosporidium Ag., DFA) and/or 93263 (Cyclospora and Isospora Exam) may be ordered to detect these parasites. One negative sample does not necessarily rule out the presence of a parasitic infection. 06/24/2017 12:5 8 PM EST 06/25/2017 1:58 AM EST Narrative Resulting Agency Comment [id number] us Tomasz Robbins MD LABORATORY Final Resul t Performing Organization Address City/State/[facility] [[email or web address]] Co de Phone Number [facility] [address] [place] [address] documented in this encounter Visit Diagnoses Diagnosis Hematuria, unspecified type documented in this encounter Additional Health Concerns Infection Onset Date Last Indicated Resolved Time COVID-19 Confirmed 07/08/2023 07/08/2023 documented as of this encounter Care Teams Orange Picker Relationship Specialty Start Date End Date Abel Mclaughlin [address] [place] [phone] PCP - General Family Medicine 04/24/17 documented as of this encounter
--- OUTSIDE RECORDS SUMMARY | 2025-05-09 16:28 | XMS_ITS | Encounter Summary ---
Author Organization [facility] Address [address] [place] [address] Care Team Providers Care Log Manager Name Role Phone ArnoldoAbel mccormick Primary Care Provider [phone] Encounter Details Date Type Department Care Team ([facility] st Contact Info) Description 09/22/2019 Orders Only [facility] Infectious Disease [address] [facility] [address] [place] [address] Gary Bojorquez MD [address] [place] [address] Social History Tobacco Use Types Packs/Day Years [...] this encounter Procedures * Due to [place] state law, this organization might not be sharing negative HIV tests. Procedure Name Priority Date/Time Associated Diagnosis Comments CHLAMYDIA TRACHOMATIS/N. GONORRHOEAE (GC) RNA, TMA (URINE) Routine 09/22/2019 2:03 PM EST Hematuria, unspecified type VENIPUNCTURE Routine 09/22/2019 2:03 PM EST Hematuria, unspecified type documented in this encounter Results * Due to [place] state law, this organization might not be sharing negative HIV tests. * RPR, (RAPID PLASMIN REAGIN) WITH REFLEX TO FTA, DIAGNOSTIC (09/22/2019 2:03 PM EST) Reagin Ab NON-REACTI VE NON-REACTI VE [facility] 09/22/2019 2:03 PM EST 09/22/2019 10:12 PM EST Narrative Resulting Agency Comment [id number] Gary Bojorquez MD LABORATORY Final Result Performing Organization Address [facility] de Phone Number [facility] [address] [place] [address] * CHLAMYDIA TRACHOMATIS/N. GONORRHOEAE (GC) RNA, TMA (URINE) (09/22/2019 2:03 PM EST) Chlamydia trachomatis rRNA NOT DETECTED NOT DETECTED [facility] Neisseria Gonorrhoeae rRNA NOT DETECTED NOT DETECTED [facility] COMMENT SEE NOTE [facility] Comment: The analytical performance characteristics of this assay, when used to test SurePath(TM) specimens have been determined by [employer]. The modifications have not been cleared or approved by the FDA. This assay has been validated pursuant to the CLIA regulations and is used for clinical purposes. For additional information, please refer to https://education.[employer]/faq/OTF030 (This link is being provided for information/ educational purposes only.) 09/22/2019 2:03 PM EST 09/22/2019 10:12 PM EST Narrative Resulting Agency Comment [id number] Gary Bojorquez MD LABORATORY Final Result Performing Organization Address [facility] de Phone Number [facility] [address] [place] [address] documented in this encounter Visit Diagnoses Diagnosis Hematuria, unspecified type documented in this encounter Additional Health Concerns Infection Onset Date Last Indicated Resolved Time COVID-19 Confirmed 07/08/2023 07/08/2023 documented as of this encounter Care Teams Log Manager Relationship Specialty Start Date End Date Abel Mclaughlin [address] [place] [phone] PCP - General Family Medicine 04/24/17 documented as of this encounter
--- OUTSIDE RECORDS SUMMARY | 2025-05-09 16:28 | XMS_ITS | Encounter Summary ---
Author Organization [facility] Address [address] [place] [address] Care Team Providers Care Divider Operator Name Role Phone Abel Mclaughlin Primary Care Provider Encounter Details Date Type Department Care Team (Late st Contact Info) Description 08/12/2019 Orders Only [facility] Hematology/Oncology [address] [facility] [address] [place] [phone] Albert Noble MD [address] [place] [address] Social History Tobacco Use Types Packs/Day Years [...] 11:40 PM EST Narrative Resulting Agency Comment [id number] Albert Noble MD LABORATORY Final Result [facility] [address] [place] [address] * CBC INCLUDES DIFFERENTIAL AND PLATELET COUNT [...] 11:40 PM EST Narrative Resulting Agency Comment [id number] us Albert Noble MD LAB SAME DAY RESULT Final Resul t [facility] [address] [place] [address] * HAPTOGLOBIN, SERUM (08/12/2019 2:16 PM EST) Haptoglobin 191 43 - 212 mg/dL [facility] 08/12/2019 2:16 PM EST 08/12/2019 11:40 PM EST Narrative Resulting Agency Comment [id number] us Albert Noble MD LABORATORY Final Result [facility] [address] [place] [address] * RETICULOCYTE COUNT (08/12/2019 2:16 PM EST) Reticulocytes/100 erythrocytes (RBC) 0.9 % [facility] Reticulocytes (RBC) 46889 12595 - 95118 cells/uL [facility] 08/12/2019 2:16 PM EST 08/12/2019 11:40 PM EST Narrative Resulting Agency Comment [id number] us Albert Noble MD LABORATORY Final Result Performing Organization Address City/[facility] Co de Phone Number [facility] [address] [place] [address] documented in this encounter Visit Diagnoses Diagnosis Asymptomatic microscopic hematuria documented in this encounter Additional Health Concerns Infection Onset Date Last Indicated Resolved Time COVID-19 Confirmed 07/08/2023 07/08/2023 documented as of this encounter Care Teams Divider Operator Relationship Specialty Start Date End Date Abel Mclaughlin [address] [place] [phone] PCP - General Family Medicine 04/24/17 documented as of this encounter
--- OUTSIDE RECORDS SUMMARY | 2025-05-09 16:28 | XMS_ITS | Encounter Summary ---
Author Organization [facility] Address [address] [place] [address] Care Team Providers Care Icu Specialist Name Role Phone Abel Mclaughlin Primary Care Provider [phone] Encounter Details Date Type Department Care Team ([facility] st Contact Info) Description 06/05/2017 Orders Only [facility] Urology [address] [phone] James Brand MD [address] [place] [address] Social History Tobacco Use Types Packs/Day Years [...] this encounter Procedures * Due to [place] law, this organization might not be sharing negative HIV tests. Procedure Name Priority Date/Time Associated Diagnosis Comments CULTURE, URINE, ROUTINE Routine 06/05/2017 3:02 PM EST Hematuria syndrome [place] URINALYSIS, COMPLETE INCLUDES DIPSTICK AND MICROSCOPIC Routine 06/05/2017 3:02 PM EST Hematuria syndrome [place] documented in this encounter Results * Due to [place] law, this organization might not be sharing negative HIV tests. * CULTURE, URINE, ROUTINE (06/05/2017 3:02 PM EST) Bacteria culture (Urine) SEE NOTE [facility] Comment: CULTURE, URINE, ROUTINE MICRO NUMBER: [id number] TEST STATUS: FINAL SPECIMEN SOURCE: URINE SPECIMEN QUALITY: ADEQUATE RESULT: No Growth 06/05/2017 3:02 PM EST 06/05/2017 8:45 PM EST Narrative Resulting Agency Comment [id number] James Brand MD LABORATORY Final Result Performing Organization Address [facility] de Phone Number [facility] [address] [place] [address] * (ABNORMAL) URINALYSIS, COMPLETE INCLUDES DIPSTICK AND [...] 8:45 PM EST Narrative Resulting Agency Comment [id number] James Brand MD LAB SAME DAY RESULT Final Resul t Performing Organization Address [facility] de Phone Number [facility] [address] [place] [address] documented in this encounter Visit Diagnoses Diagnosis Hematuria syndrome Hematuria, unspecified [place] Dysuria documented in this encounter Additional Health Concerns Infection Onset Date Last Indicated Resolved Time COVID-19 Confirmed 07/08/2023 07/08/2023 documented as of this encounter Care Teams Icu Specialist Relationship Specialty Start Date End Date Abel Mclaughlin [address] [place] [phone] PCP - General Family Medicine 04/24/17 documented as of this encounter
--- OUTSIDE RECORDS SUMMARY | 2025-05-09 16:28 | XMS_ITS | Clinical Summary ---
Author Organization [facility] Address [address] [place] [address] Care Team Providers Care Development Chemist Name Role Phone Arnoldo GUTIERREZ MD, Steven [...] by mouth 2 times daily. 1 Active zolpidem (AMBIEN) 10 mg tablet Take [...] Tablet(s) By Mouth Twice Daily 4 Active amitriptyline (ELAVIL) 50 mg tablet SMARTSI Tablet(s) By Mouth Every Night 5 Active cloNIDine (CATAPRES) 0.1 mg tablet every 24 hours. Acti ve naproxen (NAPROSYN) 500 mg tablet SMARTSI Tablet(s) By Mouth Every 12 Hours 5 Active tamsulosin (FLOMAX) 0.4 mg capsule Take 0.4 mg by mouth daily. 5 Active TiZANidine (ZANAFLEX) 2 mg capsule Take 2 mg by mouth 3 times daily as needed. 4 Active gabapentin (NEURONTIN) 600 mg tablet Take 1 tablet (600 mg total) by mouth 3 times a day. 270 tablet 3 5 04/01/20 26 Active nitroglycerin (NITROSTAT) 0.[address] 1 tablet (0.4 mg total) under the tongue every 5 minutes as needed for chest pain. Dissolve 1 tablet under the tongue every 5 minutes for up to 3 doses as needed for chest pain. If no relief, dial 911. 30 tablet 5 Active Active Problems Problem Noted Date Diagnosed Date Hypogonadism male 08/17/2015 Epididymal cyst 09/22/2014 Chronic interstitial cystitis 06/28/2014 Post-void dribbling 01/16/2014 Ventricular pre-excitation syndrome 11/15/2013 Pelvic pain in male 2013 Prostatitis 07/26/2013 Male stress incontinence 05/26/2012 Dysuria 05/26/2012 Resolved Problems Problem Noted Date Diagnosed Date Resolved Date Acute UTI (urinary tract infection) 08/30/2013 12/08/2018 Encounters Date Type Department Care Team Description 05/09/2025 Telephone [facility] Interventional Radiology [address] [place] [address] Yolanda Portillo RN 04/10/[address] [phone] Steven Milligan III, MD 04/10/2025 Orders Only [facility] and Vascular Interventional Lab [address] [place] [address] Eusebia Diamond MD PhD Chest pain, unspecified type (Primary Dx) 04/10/2025 Orders Only [address] [phone] Steven Milligan III, MD 04/08/2025 2:35 PM EDT Lab [address] [address] Cystitis 04/06/2025 8:30 AM EDT Office Visit [address] [phone] Steven Milligan III, MD Chest pain, unspecified type (Primary Dx); Primary hypertension 03/23/2025 2:45 PM EDT Lab [address] [address] Testicular hypofunction; Elevated prostate specific antigen (PSA) 03/15/2025 Orders Only [address] [address] Junior Finnegan MD Testicular hypofunction (Primary Dx); Elevated prostate specific antigen (PSA) 03/13/[address] [phone] Steven Milligan III, MD PAC Appt Request - Established from Last 3 Months Immunizations Immunization Administration Dates Next Due INFLUENZA, SPLIT VIRUS, TRIVALENT, PF 04/06/2025 ,04/20/2024 Influenza, Injectable, Quadrivalent, Preservativ e Free 09/22/2019 [...] 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 file Not on file Not on file Last Filed Vital Signs Vital Sign Reading Time Taken Comments Blood Pressure 141/87 04/06/2025 8:43 AM EDT Pulse 76 04/06/2025 8:40 AM EDT Temperature 37.2 C (99 F) 04/06/2025 8:40 AM EDT Respiratory Rate 18 09/17/2022 11:33 AM EST Oxygen Saturation 97% 04/06/2025 8:40 AM EDT Inhaled Oxygen Concentration - - Weight 86.2 kg (190 lb) 04/06/2025 8:40 AM EDT Height 172.7 cm (5' 8 ) 04/06/2025 8:40 AM EDT Body Mass Index 28.89 04/06/2025 8:40 AM EDT Plan of Treatment Upcoming Encounters Date Type Department Care Team (Late st Contact Info) Description 05/10/2025 1:00 PM EDT Hospital Encounter [facility] [address] [place] [address] 05/24/2025 10:00 AM EDT Office Visit [address] Department [address] [place] [phone] Steven Milligan III, MD [address] [place] [address] 12/06/2025 11:40 AM EDT Follow-Up [facility] Building 4th floor Cardiology Medicine [address] [place] [id number] Continuous Mining Machine Coal Miner: Eusebia Vergara MD PhD [address] [place] [id number] Health Maintenance Due Date Last Done Comments Cologuard 1970 Colon Cancer Screening 1970 Colonoscopy 1970 FOBT / Fit Test 1969 HIV Screening 1970 Hepatitis C Screening 1969 Sigmoidoscopy 1969 Hepatitis B Vaccines (1 of 3 - 19+ 3-dose series) 1988 Pneumococcal Vaccine: 50+ Ye ars (1 of 2 - PCV) 1988 DTaP,Tdap,and Td Vaccines (1 - Tdap) 03/27/2005 03/26/2005 CT Lung Cancer Screening (Baseline) 09/27/2019 Zoster Vaccines (1 of 2) 09/27/2019 Social Drivers of Health Aneta ual Screening 07/27/2024 COVID-19 Vaccine (3 - 2024-2 6 season) 2025 04/19/2021, 12/13/2020 Medicare AWV 04/21/2025 04/20/2024 Basic Metabolic Panel 05/23/2025 05/23/2024 , 04/26/2024, 10/31/2022, Additional history exists Depression Screening and Follow-Up 04/06/20262024 Diabetes Screening 05/23/2027 05/23/2024, 1 , 04/26/2024, Additional history exists RSV Vaccine (60+ years old a nd patients) (1 - 1-dose 75+ series) 2044 Abdominal Aortic Aneurysm (A AA) Screening Completed 06/14/2017, 06/23/2014 Alcohol/Substance Use Screening Completed Influenza Vaccine Completed 04/06/2025, , 09/22/2019 Procedures * Due to [place] state law, this organization might not be sharing negative HIV tests. Procedure Name Priority Date/Time Associated Diagnosis Comments URINE CULTURE, ROUTINE Routine 04/08/2025 2:40 PM EDT Cystitis TESTOSTERONE, BIOAVAILABLE Routine 03/23/2025 2:41 PM EDT Testicular hypofunction Elevated prostate specific antigen (PSA) PSA Routine 03/23/2025 2:41 PM EDT Testicular hypofunction Elevated prostate specific antigen (PSA) CBC Routine 03/23/2025 2:41 PM EDT Testicular hypofunction Elevated prostate specific antigen (PSA) HEMOGLOBIN A1C Routine 04/26/2024 3:00 PM EDT Primary hypertension COMPREHENSIVE METABOLIC PANEL Routine 04/26/2024 3:00 PM EDT Primary hypertension CT ABDOMEN PELVIS W CONTRAST Routine 06/23/2014 10:42 PM EST from Last 3 Months or Most Recently Relevant to Health Maintenance Results * Due to [place] state law, this organization might not be sharing negative HIV tests. * Urine culture (clean catch) (Lab Collect) (04/08/2025 2:40 PM EDT) Urine Culture Gram positives; <10,000 CFU/mL found. No further workup is indicated. [place] [facility] 04/09/2025 11:00 AM EDT [facility] Urine Urine specimen collection, clean catch / Unknown Non-Blood Collection / Unknown 04/08/2025 2:40 PM EDT 04/08/2025 2:45 PM EDT Steven Milligan III, MD LAB MICROBIOLOGY - GENERAL ORDERABLES Final Result [facility] [address] [place] [address], [place] [phone] * (ABNORMAL) Testosterone, Free & Total, Bioavailable, MS (03/23/2025 2:41 PM EDT) Testosterone, Total, MS 1174(H) 250 - 1100 ng/dL 03/31/2025 2:39 PM EDT JHONATHAN OGDEN) Comment: For additional information, please refer to http://education.[facility].[employer]/faq/ XeapwJmeylfttfaohFQGXUPAGP343 (This link is being provided for informational/ educational purposes only.) This test was developed and its analytical performance characteristics have been determined by [place]. It has not been cleared or approved by the U.S. Food and Drug Administration. This assay has been validated pursuant to the CLIA regulations and is used for clinical purposes. Testosterone, Free 129.9 46.0 - 224.0 pg/mL 03/31/2025 2:39 PM EDT [facility] ([email or web address]) Testosterone,Bio available 278.4 110.0 - 575.0 ng/dL 03/31/2025 2:39 PM EDT [facility] ([email or web address]) Sex Hormone Binding Globulin 50 10 - 50 nmol/L 03/31/2025 2:39 PM EDT [facility] ([email or web address]) Albumin 4.7 3.6 - 5.1 g/dL 03/31/2025 2:39 PM EDT [facility] ([email or web address]) Blood Structure of peripheral vein / Unknown Venipuncture / Unknown 03/23/2025 2:41 PM EDT 03/23/2025 2:49 PM EDT Narrative JHONATHAN DAY - 03/31/2025 2:39 PM EDT [facility] Received Date: us Junior Finnegan MD LAB BLOOD ORDERABLES Final Result JHONATH[facility] DAY [address] [place] [address] 3rd Floor, [place] [address], [place] [phone] [employer] ([email or web address]) [address] [place] [address], [place] * CBC (03/23/2025 2:41 PM EDT) [facility] WBC 8.8 4.8 - 10.8 10*3/uL 03/23/2025 2:52 PM EDT [facility] RBC 5.00 4.70 - 6.10 10*6/uL 03/23/2025 2:52 PM EDT [facility] Hemoglobin 15.9 13.7 - 16.5 g/dL 03/23/2025 2:52 PM EDT [facility] Hematocrit 44.3 40.5 - 48.5 % 03/23/2025 2:52 PM EDT [facility] MCV 88.6 80.0 - 94.0 fL 03/23/2025 2:52 PM EDT [facility] MCH 31.8 26.0 - 34.0 pg 03/23/2025 2:52 PM EDT [facility] MCHC 35.9 31.0 - 36.0 g/dL 03/23/2025 2:52 PM EDT [facility] RDW 12.4 12.0 - 15.0 % 03/23/2025 2:52 PM EDT [facility] Platelets 222 140 - 440 10*3/uL 03/23/2025 2:52 PM EDT [facility] MPV 9.5 9.4 - 12.4 fL 03/23/2025 2:52 PM EDT [facility] RDW Standard Deviation 40.3 35.1 - 43.9 fL 03/23/2025 2:52 PM EDT [facility] Blood Structure of peripheral vein / Unknown Venipuncture / Unknown 03/23/2025 2:41 PM EDT 03/23/2025 2:49 PM EDT us Junior Finnegan MD LAB BLOOD ORDERABLES Final Result [facility] [address] [place] [address] [address] [place] [address], * PSA (03/23/2025 2:41 PM EDT) PSA 0.084 <=4.000 ng/mL 03/23/2025 3:32 PM EDT [facility] Blood Structure of peripheral vein / Unknown Venipuncture / Unknown 03/23/2025 2:41 PM EDT 03/23/2025 2:49 PM EDT Junior Finnegan MD LAB BLOOD ORDERABLES Final Result Performing Organization Address [facility]/ZIP Co de Phone Number [facility] [address] [address], [place] [phone] * Hemoglobin A1c (04/26/2024 3:00 PM EDT) Pathologist [facility] Hemoglobin A1c 5.6 4.0 - 5.7 % 04/26/2024 3:25 PM EDT [facility] Estimated Average Glucose 114 mg/dL 04/26/2024 3:25 PM EDT [facility] Blood Structure of peripheral vein / Unknown Venipuncture / Unknown 04/26/2024 3:00 PM EDT 04/26/2024 3:07 PM EDT Steven Milligan III, MD LAB BLOOD ORDERABL ES Final Result Performing Organization Address [facility] Co de Phone Number [facility] [address] [address], [place] [phone] * (ABNORMAL) Comprehensive Metabolic Panel (04/26/2024 3:00 PM EDT) Pathologist [facility] NA 139 136 - 145 mmol/L 04/26/2024 3:53 PM EDT [facility] K 3.8 3.5 - 5.1 mmol/L 04/26/2024 3:53 PM EDT [facility] Cl 104 98 - 109 mmol/L 04/26/2024 3:53 PM EDT [facility] CO2 23 22 - 32 mmol/L 04/26/2024 3:53 PM EDT [facility] Anion Gap 16 >=0 04/26/2024 3:53 PM EDT [facility] Glucose 123(H) 60 - 99 mg/dL 04/26/2024 3:53 PM EDT [facility] Creatinine 1.01 0.50 - 1.12 mg/dL 04/26/2024 3:53 PM EDT [facility] Calcium 9.3 8.4 - 10.4 mg/dL 04/26/2024 3:53 PM EDT [facility] Total Protein 7.1 6.6 - 8.7 g/dL 04/26/2024 3:53 PM EDT [facility] Albumin 4.5 3.5 - 5.0 g/dL 04/26/2024 3:53 PM EDT [facility] Bilirubin, Total 0.5 0.2 - 1.2 mg/dL 04/26/2024 3:53 PM EDT [facility] Alkaline Phosphatase 77 40 - 129 U/L 04/26/2024 3:53 PM EDT [facility] AST 15 0 - 40 U/L 04/26/2024 3:53 PM EDT [facility] ALT 7 <=41 U/L 04/26/2024 3:53 PM EDT [facility] BUN 12 6 - 20 mg/dL 04/26/2024 3:53 PM EDT [facility] eGFR 88 >=60 mL/min/1. 73m2 04/26/2024 3:53 PM EDT [facility] Comment:The estimated glomer ular filtration rate (eGFR) is calculated using a new formula developed by the NKF-ASN task force to eliminate race-based correction factors. The new formula uses serum/plasma creatinine, age, and gender to determine eGFR. A value below 60mls/min might indicate kidney disease and will be flagged. For additional information, see Deandre et al, Am J Kidney Dis. 2021;79(2):268- 288, A Unifying Approach for GFR estimation: Recommendations of the NKF-ASN Task Force on Reassessing the Inclusion of Race in Diagnosing Kidney Disease . Globulin, Total 2.6 2.1 - 4.2 g/dL 04/26/2024 3:53 PM T [facility] A/G Ratio 1.7 1.5 - 3.0 04/26/2024 3:53 PM T [facility] Blood Structure of peripheral vein / Unknown Venipuncture / Unknown 04/26/2024 3:00 PM EDT 04/26/2024 3:07 PM EDT us Steven Milligan III, MD LAB BLOOD ORDERABL ES Final Result [facility] [address] [facility] [address] [place] [address], [place] [phone] * CT Abdomen Pelvis with Contrast (06/23/2014 10:42 PM EST) Anatomical Region Laterality Modality Body Computed Tomogra phy 06/24/2014 5:16 PM EST Narrative 06/24/2014 5:31 PM EST DEPARTMENT OF RADIOLOGY Patient: VOLODYMYR JOHNSON Unit #: [id number] Ordering MD: HEAVENLY MADRIGAL NP : 1970 Procedure: CT Abdomen & Pelvis W/IV Cont Age: 43 Location: [facility] Exam Date: 06/23/14 Status: DEP ER Room/Bed: Primary MD: STEVEN MILLIGAN III, MD Patient Order: [id number] Additional Copy: STEVEN MILLIGAN III, MD, PAMELA D NP MARINO, ANDREW MD - INDICATION: Hematuria and pelvic pain COMPARISON: CT study of December 03, 2006 TECHNIQUE: Axial multislice images were acquired after the administration of oral and intravenous contrast. Coronal and sagittal reformatted images were used and were essential for interpretation of findings. The patient received 130 cc of Omnipaque 350. DOSE:764 mGy /cm FINDINGS: LOWER THORAX: No evidence of pulmonary abnormality. No evidence of pleural or pericardial effusion. HEPATOBILIARY: Two 2mm punctate hypodensities in the right hepatic lobe are too small to fully characterize but likely represent simple cysts.. No biliary ductal dilatation. The gallbladder is contracted and unremarkable without evidence of stones or gallbladder wall thickening. PANCREAS: No focal masses or ductal dilatation. SPLEEN: No splenomegaly. No focal splenic lesions. ADRENALS: No adrenal nodules. KIDNEYS/URETERS/BLADDER: No hydronephrosis, stones, or solid mass lesions. An exophytic 1.8 cm simple cyst is seen arising from the upper pole of the right kidney. PELVIC ORGANS: There is a hypodense 2.4 x 2.1 cm region in the prostate likely secondary to prior resection. Findings are likely post operative however superimposed infection cannot be excluded. The bladder is unremarkable. No calculus identified. PERITONEUM / RETROPERITONEUM: No free air or fluid. LYMPH NODES: No lymphadenopathy. VESSELS: Unremarkable. GI TRACT: No distention or wall thickening. The appendix is clearly identified and appears normal. BONES AND SOFT TISSUES: Unremarkable. CONCLUSION: Hypodense region in the prostate is likely post resection however a underlying infection cannot be excluded . The history of chronic prostatitis is noted. MRI may be of benefit. No renal, ureteric or bladder calculi. POI: [place] ELECTRONICALLY SIGNED BY: BILL AGUIAR 06/24/2014 5:28 PM Procedure Note Provider, Historical Conversion - 04/25/2023 DEPARTMENTOF RADIOLOGY [place] t: VOLODYMYR JOHNSON Unit #:[id number] Ordering MD: HEAVENLY MADRIGAL NP :1970 Procedure: CT Abdomen & Pelvis W/IV Cont Age:43 Location: [facility] ExamDate: 06/23/14 Status: DEP ERRoom/Bed: Primary MD: STEVEN MILLIGAN III, MD PatientAcct #: [id number] Order:[id number] Additional Copy: STEVEN MILLIGAN III, MD, [...] No renal, ureteric or bladder calculi. POI: [place] ELECTRONICALLY SIGNED BY: BILL AGUIAR 06/24/2014 5:28 PM Heavenly Madrigal CAMERA MAKER IMG CT PROCEDURES Final Resu lt from Last 3 Months or Most Recently Relevant to Health Maintenance Insurance [facility] MEDICARE Advance Directives Documents on File Type Date Recorded Patient Molding Engineer Expl [facility] Health Care Proxy 04/20/2024 3:55 PM 10-02 Advance Directive 08/24/2012 12:00 AM Adva nce Care Directives Advance Directive 08/04/2012 12:00 AM sf Me dical Dec Making (Adv.Dir) Care Teams Development Chemist Relationship Specialty Start Date End Date Steven Milligan III, MD [address] [place] [address] PCP - General 02/12/17
--- OUTSIDE RECORDS SUMMARY | 2025-05-09 16:28 | XMS_ITS | Encounter Summary ---
Author Organization [facility] Address [address] [place] [address] Care Team Providers Care Human Capital Consultant Name Role Phone Arnoldo Abel Stern Primary Care Provider Encounter Details Date Type Department Care Team (Late st Contact Info) Description 06/05/2017 Orders Only [facility] Infectious Disease [address] [facility] [address] [place] [address] Tomasz Robbins MD Social History Tobacco Use [...] needs for GFR calculation. Resulting Agency Comment [id number] Tomasz Robbins MD LABORATORY Final Resul t Performing Organization Address [facility] Co de Phone Number [facility] [address] [place] [address] * QUANTIFERON(R)-TB GOLD (06/05/2017 2:40 PM EST) Pathologist [facility] Quantiferon(R) - TB Gold NEGATIVE NEGATIVE [facility] [...] IU/mL. For additional information, please refer to http://education.[employer]/faq/QFT (This link is being provided for informational/ educational purposes only.) 06/05/2017 2:40 PM EST 06/05/2017 8:41 PM EST Narrative Resulting Agency Comment [id number] Tomasz Robbins MD LABORATORY Final Resul t Performing Organization Address City/[facility] Co de Phone Number [facility] [address] [place] [address] documented in this encounter Visit Diagnoses Diagnosis Hematuria, unspecified type documented in this encounter Additional Health Concerns Infection Onset Date Last Indicated Resolved Time COVID-19 Confirmed 07/08/2023 07/08/2023 documented as of this encounter Care Teams Human Capital Consultant Relationship Specialty Start Date End Date Abel Mclaughlin [address] [place] [address] PCP - General Family Medicine 04/24/17 documented as of this encounter
--- OUTSIDE RECORDS SUMMARY | 2025-05-09 16:28 | XMS_ITS | Encounter Summary ---
Author Organization [facility] Address [address] [place] [address] Care Team Providers Care Bankruptcy Manager Name Role Phone ArnoldoAbel mccormick Primary Care Provider [phone] Encounter Details Date Type Department Care Team (Late st Contact Info) Description 07/24/2017 Orders Only [facility] Infectious Disease [address] [facility] [address] [place] [address] Darby Cordero RN Social History Tobacco Use [...] this encounter Results * Due to [place] [employer] law, this organization might not be sharing negative HIV tests. * CULTURE, URINE, ROUTINE (07/24/2017 12:44 PM EST) Bacteria culture (Urine) SEE NOTE [facility] Comment: CULTURE, URINE, ROUTINE MICRO NUMBER: [id number] TEST STATUS: FINAL SPECIMEN SOURCE: URINE SPECIMEN QUALITY: ADEQUATE RESULT: No Growth 07/24/2017 12:4 4 PM EST 07/24/2017 2:43 PM EST Narrative Resulting Agency Comment [id number] us Tomasz Robbins MD LABORATORY Final Resul t Performing Organization Address City/State/[facility] Co de Phone Number [facility] [address] [place] [address] * (ABNORMAL) URINALYSIS, COMPLETE INCLUDES DIPSTICK AND [...] 2:43 PM EST Narrative Resulting Agency Comment [id number] Tomasz Robbins MD LAB SAME DAY RESULT Final R esult Performing Organization Address [facility] de Phone Number [facility] [address] [place] [address] * ACTIVATED PARTIAL THROMBOPLASTIN TIME (APTT), PLASMA (07/24/2017 12:44 PM EST) Thromboplastin Time 29 22 - 34 sec [facility] Comment: This test has not been validated for monitoring unfractionated heparin therapy. For testing that is validated for this type of therapy, please refer to the Heparin Anti-Xa assay (test code 99458). For additional information, please refer to http://education.[employer]/faq/YRT926 (This link is being provided for informational/educational purposes only.) 07/24/2017 12:4 4 PM EST 07/24/2017 2:43 PM EST Narrative Resulting Agency Comment [id number] Tomasz Robbins MD LAB SAME DAY RESULT Final R esult Performing Organization Address [facility] de Phone Number [facility] [address] [place] [address] * PROTHROMBIN TIME (PT) (INR), BLOOD (07/24/2017 12:44 PM EST) INR 1.0 [facility] Comment: Reference Range 0.9-1.1 Moderate-intensity Warfarin Therapy 2.0-3.0 Higher-intensity Warfarin Therapy 3.0-4.0 PT 10.3 9.0 - 11.5 sec [facility] Comment: For more information on this test, go to: http://education.[facility]/faq/PGW111 07/24/2017 12:4 4 PM EST 07/24/2017 2:43 PM EST Narrative Resulting Agency Comment [id number] us Tomasz Robbins MD LAB SAME DAY RESULT Final R esult [facility] [address] [place] [address] * COMPREHENSIVE METABOLIC PANEL WITH GFR (07/24/2017 [...] needs for GFR calculation. Resulting Agency Comment [id number] us Tomasz Robbins MD LABORATORY Final Resul t [facility] [address] [place] [address] * (ABNORMAL) CBC INCLUDES DIFFERENTIAL AND PLATELET [...] 2:43 PM EST Narrative Resulting Agency Comment [id number] us Tomasz Robbins MD LAB SAME DAY RESULT Final R esult [facility] [address] [place] [address] documented in this encounter Visit Diagnoses Diagnosis Hematuria, unspecified type documented in this encounter Additional Health Concerns Infection Onset Date Last Indicated Resolved Time COVID-19 Confirmed 07/08/2023 07/08/2023 documented as of this encounter Care Teams Bankruptcy Manager Relationship Specialty Start Date End Date Abel Mclaughlin [address] [place] [phone] PCP - General Family Medicine 04/24/17 documented as of this encounter
== END 2025-05-09 14:02 | disposition home or self-care (01) ==
LOC: HO.HUSH 13:36
PROVIDERS: PCP Family Medicine; Visit Provider Urology
DX: R10.20 Pelvic and perineal pain unspecified side (principal); G89.29 Other chronic pain; N30.11 Interstitial cystitis (chronic) with hematuria; R31.29 Other microscopic hematuria; E29.1 Testicular hypofunction
CPT/HCPCS: 99214; G2211

== ENCOUNTER → 2025-05-09 13:35 | Outpatient (BNVA) | payer MEDICARE, MEDICAID, SELFPAY | PROVIDERS: PCP Family Medicine; Visit Provider Urology | DX: N30.11 Interstitial cystitis (chronic) with hematuria (principal); R10.20 Pelvic and perineal pain unspecified side; R31.29 Other microscopic hematuria; E29.1 Testicular hypofunction | CPT/HCPCS: 99212 ==